=== PATIENT | male | born 1945 | race African-American/Black ===

== ENCOUNTER 2016-12-24 07:32 | Day surgery (SDC) | payer OTHER ==
[2016-12-23 12:34] VITALS: BMI 37.1
[2016-12-24] MEDS ORDERED: LIDOCAINE HCL 1%, 10 MG/ML (20ML VIAL) ONE (09:12)
[2016-12-24] MEDS ORDERED: HEPARIN NA (PORCINE) 5,000 UNITS/ML 1ML VIAL ONE (09:12)
[2016-12-24] MEDS ORDERED: ceFAZolin SODIUM 1 GM VIAL IVPB ONE (09:35)
[2016-12-24] MEDS ORDERED: LIDOCAINE HCL 1%, 10 MG/ML (50 mL VIAL) IJ ONE ×2 (09:43)
[2016-12-24] MEDS ORDERED: POVIDONE-IODINE OINTMENT 10% - 28.4 GM TUBE TP ONE (11:25)
--- NOTE | 2016-12-24 11:32 | OP ---
Operative Note - Note: Operative Date: 12/24/16 Pre-Operative Diagnosis: CRF Operation: Creation of left radial cephalic fistula Post-Operative Diagnosis: Same as Pre-op Surgeon: Romain Gomez Anesthesia: Fractional Estimated Blood Loss (mls): 30 Operative Report Dictated: Yes
--- NOTE | 2016-12-24 11:33 | HP ---
Admitting History and Physical - Admission Chief Complaint: Chronic renal failure History Source: Patient Limitations to Obtaining History: No Limitations - Past Medical History Cardiovascular: Yes: HTN, Hyperlipdemia Pulmonary: Yes: COPD Gastrointestinal: Yes: Hemorrhoids Renal/: Yes: Renal Failure Heme/Onc: Yes: Anemia Endocrine: Yes: Diabetes Mellitus, Other (Hypercalcemia) - Past Surgical History Past Surgical History: Yes: Appendectomy (1962), Bypass (2002), Stent - Smoking History Smoking history: Former smoker Have you smoked in the past 12 months: No Aproximately how many cigarettes per day: 0 - Alcohol/Substance Use Hx Alcohol Use: No (STOPPED MAY 2016) Home Medications - Allergies Allergies/Adverse Reactions: Allergies Allergy/AdvReac Type Severity Reaction Status Date / Time SHERRY Inhibitors Allergy Swelling Verified 05/11/16 23:49 Penicillins Allergy Verified 05/11/16 23:49 - Home Medications Home Medications: Ambulatory Orders Albuterol Sulfate Inhaler - [Ventolin HFA Inhaler -] 2 inh IH Q4H 03/23/13 Allopurinol [Zyloprim -] 100 mg PO DAILY 03/23/13 Insulin Glargine,Hum.rec.anlog [Lantus Solostar PEN -] 10 units SQ HS 03/23/13 Nebivolol HCl [Bystolic] 5 mg PO DAILY 03/23/13 Salmeterol/Fluticasone [Advair 500Mcg/50Mcg -] 1 inh IN BID 03/23/13 Simvastatin [Zocor -] 40 mg PO HS 03/23/13 Aspirin [ASA -] 81 mg PO DAILY #0 07/01/16 Insulin Aspart [Novolog Flexpen] SQ ASDIR 07/01/16 Losartan Potassium 50 mg PO DAILY 07/01/16 Omeprazole [Prilosec] 20 mg PO DAILY 07/01/16 Pregabalin [Lyrica] 100 mg PO BID 07/01/16 Vitamin B Complex 1 cap PO DAILY 07/01/16 Physical Examination Vital Signs: Vital Signs Temperature 97.7 F 12/24/16 08:27 Pulse Rate 74 12/24/16 08:27 Respiratory Rate 16 12/24/16 08:27 Blood Pressure 149/69 12/24/16 08:27 O2 Sat by Pulse Oximetry (%) Constitutional: Yes: Well Nourished Eyes: Yes: WNL HENT: Yes: WNL Neck: Yes: WNL Cardiovascular: Yes: WNL Respiratory: Yes: WNL Gastrointestinal: Yes: WNL Extremities: Yes: WNL Neurological: Yes: WNL Assessment/Plan CRF 1. for creation of avf today
[2016-12-24] MEDS ORDERED: oxyCODONE HCL 5 MG TABLET PO PRN (12:00)
[2016-12-24] MEDS ORDERED: ONDANSETRON 4 MG/2 ML VIAL IVPUSH PRN (12:00)
[2016-12-24] MEDS ORDERED: PROMETHAZINE HCL 25 MG/1 ML VIAL IVPUSH PRN (12:00)
[2016-12-24 12:43] VITALS: PULSE 82
[2016-12-24 13:43] VITALS: BP 141/83; TEMP 97.5
--- NOTE | 2016-12-24 16:57 | SURG ---
Surgery Land Surveying Manager Note Land Surveying Manager: Myesha Faulkner PA-C Date of Service: 12/24/16 Diagnosis: CRF Procedure: Creation of left radial cephalic fistula I was present for the entirety of the operative procedure. For further detail, please refer to operative report. Visit type - Case Type Case Type: Scheduled Admission - New patient This patient is new to me today: Yes Date on this admission: 12/24/16
--- NOTE | 2016-12-25 12:40 | OP ---
DATE OF OPERATION: 12/24/2016 PREOPERATIVE DIAGNOSIS: Chronic renal failure. POSTOPERATIVE DIAGNOSIS: Chronic renal failure. PROCEDURE: Creation of left radial artery to cephalic vein fistula. SURGEON: Romain Mukherjee MD ANESTHESIA: Fractional. BLOOD LOSS: 30 mL. INDICATIONS FOR PROCEDURE: The patient is a 71-year-old male who has chronic renal failure who needs eminent dialysis in about 6-8 months. It was decided that he would need an AV fistula created so that dialysis can be initiated. He had preoperative vein mapping performed showing that he has a good cephalic vein in the forearm and came in through ambulatory surgery. The patient was consented for the procedure understanding all risks, benefits, and alternatives and then taken in the operating room. DESCRIPTION OF PROCEDURE: Once in the operating room, he was laid on the operating table in supine manner, and the radial artery and the cephalic vein were marked on the skin using a skin marker under ultrasound guidance. We then went ahead and injected 10 mL of lidocaine 1% over the cephalic vein above the wrist. Bovie electrocautery was used to control hemostasis. We got down to the subcutaneous tissue and dissected out our cephalic vein anteriorly and posteriorly. All branches were ligated using 4-0 silk. We then went medially and injected 10 mL lidocaine 1% over the radial artery. We then made a 5-cm incision using a 15 blade. We then went ahead and dissected out. We then got down through the subcutaneous tissue and the sheath and the fascia. Once we got to the radial sheath, the radial artery was dissected anteriorly and posteriorly, and Vessel Loops were placed around it. Then 5000 units of IV heparin were then admitted to the patient. We then went ahead and used 2-0 silk and ligated the cephalic vein distally at the wrist. We then went ahead and placed a 5-Kazakh feeding tube in the vein and dilated the vein appropriately. We then went ahead and used Stanford scissors and made a 7-mm venotomy. We then went ahead and transposed the vein over to the artery. After 3 minutes of IV heparin, we got distal and proximal on the artery. Using a 15 blade, we made an arteriotomy and extended to 7 mm using Stanford scissors. Then 6-0 Prolene stay sutures were placed on the artery. We then used 6-0 Prolene double arm and went outside on the vein and inside on the artery and ran the suture around forming an anastomosis between the artery and the vein. We then opened the distal artery first then the proximal artery. The vein dilated up appropriately. There was a good thrill in the vein. There was no bleeding. Both wounds were well irrigated. Then 3-0 Vicryl was used, and the subcutaneous tissue was approximated in interrupted manner for both incisions, and the skin was closed with 4-0 Biosyn in subcuticular running fashion. The area was wet and dried. Then 4 x 4 Tegaderms were placed. The patient tolerated the procedure well with no complication. The patient was transferred back in stable condition. Total blood loss 30 mL. ROMAIN MUKHERJEE DO NP/[id number]
== END 2016-12-24 13:20 | disposition home or self-care (01) ==
LOC: JASU-SURG 07:32
PROVIDERS: ATTEND Surgery Vascular Surgery
PROC: 031C0ZF Bypass Left Radial Artery to Lower Arm Vein, Open Approach (ICD-10-PCS; principal; 2016-12-24 09:00)
DX: I12.0 Hypertensive chronic kidney disease with stage 5 chronic kidney disease or end stage renal disease (principal); E11.22 Type 2 diabetes mellitus with diabetic chronic kidney disease; N18.6 End stage renal disease; D64.9 Anemia, unspecified; Z87.891 Personal history of nicotine dependence; K64.8 Other hemorrhoids
CPT/HCPCS: 94760; J1644

== ENCOUNTER 2017-04-20 07:35 | Day surgery (SDC) | payer OTHER ==
[2017-04-19 12:18] VITALS: BMI 37.1
[2017-04-20] MEDS ORDERED: LIDOCAINE HCL/PF 2% SDV 5ML VIAL ONE (09:08)
[2017-04-20 09:56] VITALS: PULSE 82; TEMP 97.6
[2017-04-20 13:16] VITALS: BP 110/50
--- NOTE | 2017-04-21 13:30 | PATH ---
Surgical Pathology Report Patient Name: SALLY CONNOR [facility]. Rec. #: [id number] /Age/Gender: 1945 (Age: 71) / M Account: [id number] Location: [facility]-ENDOSCOPY Taken: 04/20/2017 Received: 04/20/2017 Reported: 04/21/2017 Physicians: Alex Flores M.D. 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 DUODENUM, ATROPHIC, BIOPSY: DUODENAL MUCOSA WITH ACTIVE AND CHRONIC INFLAMMATION WITH FOCAL VILLOUS BLUNTING; NO INCREASE IN INTRAEPITHELIAL LYMPHOCYTES (SEE COMMENT). Comment: The finding is nonspecific and may be seen in gluten sensitive enteropathy (celiac disease) or active/chronic duodenitis. In the presence of significant inflammation the finding is likely related to duodenitis. Serological correlations are suggested if clinically indicated. B. 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 IMMUNOSTAIN FOR H. PYLORI IS NEGATIVE FOR ORGANISMS. Electronically Signed Jet Simpson M.D. Gross Description A. Received in formalin, labeled "biopsy atrophic duodenum" is a powers, irregular portion of soft tissue measuring 0.4 cm in greatest dimension. The specimen is submitted in toto in one cassette. B. Received in formalin, labeled "biopsy nodular body" are 2 powers, irregular portions of soft tissue measuring 0.1 and 0.5 cm in greatest dimension. The specimens are submitted in toto in one cassette. 04/20/2017 [facility]04/20/2017
== END 2017-04-20 11:00 | disposition home or self-care (01) ==
LOC: JASU-ENDO 07:35
PROVIDERS: ATTEND Internal Medicine Gastroenterology
PROC: 0DB68ZX Excision of Stomach, Via Natural or Artificial Opening Endoscopic, Diagnostic (ICD-10-PCS; principal; 2017-04-20 08:30)
DX: D64.9 Anemia, unspecified (principal); K29.80 Duodenitis without bleeding; K29.70 Gastritis, unspecified, without bleeding
CPT/HCPCS: 88305-TC; 88342-TC

== ENCOUNTER 2017-07-23 07:28 | Day surgery (SDC) | payer OTHER ==
[2017-07-22 12:39] VITALS: BMI 37.1
[2017-07-23] MEDS ORDERED: LIDOCAINE HCL 1%, 10 MG/ML (20ML VIAL) ONE (08:36)
[2017-07-23] MEDS ORDERED: HEPARIN NA (PORCINE) 5,000 UNITS/ML 1ML VIAL ONE (08:36)
[2017-07-23] MEDS ORDERED: CLINDAMYCIN PHOSPHATE 600 MG/4 ML VIAL IVPB ONE (09:52)
[2017-07-23] MEDS ORDERED: LIDOCAINE HCL 1%, 10 MG/ML (50 mL VIAL) IJ ONE (09:56)
--- NOTE | 2017-07-23 10:20 | OP ---
Operative Note - Note: Operative Date: 07/23/17 Pre-Operative Diagnosis: immature left avf Operation: venoplasty left avf Post-Operative Diagnosis: Same as Pre-op Surgeon: Romain Gomez Anesthesia: Fractional Estimated Blood Loss (mls): 5 Operative Report Dictated: Yes
--- NOTE | 2017-07-23 10:22 | HP ---
Admitting History and Physical - Admission Chief Complaint: immature left avf - Past Medical History Cardiovascular: Yes: HTN, Hyperlipdemia Pulmonary: Yes: COPD Gastrointestinal: Yes: Hemorrhoids Renal/: Yes: Renal Failure Heme/Onc: Yes: Anemia Endocrine: Yes: Diabetes Mellitus, Other (Hypercalcemia) - Past Surgical History Past Surgical History: Yes: Appendectomy (1962), Bypass (2002), Stent - Smoking History Smoking history: Former smoker Have you smoked in the past 12 months: No Aproximately how many cigarettes per day: 0 If you are a former smoker, when did you quit?: 1997 - Alcohol/Substance Use Hx Alcohol Use: No (STOPPED MAY 2016) Home Medications - Allergies Allergies/Adverse Reactions: Allergies Allergy/AdvReac Type Severity Reaction Status Date / Time SHERRY Inhibitors Allergy Severe Swelling Verified 07/23/17 08:00 Penicillins Allergy Intermediate Rash Verified 07/23/17 08:00 - Home Medications Home Medications: Ambulatory Orders Albuterol Sulfate Inhaler - [Ventolin HFA Inhaler -] 2 inh IH Q4H 03/23/13 Allopurinol [Zyloprim -] 100 mg PO DAILY 03/23/13 Nebivolol HCl [Bystolic] 5 mg PO DAILY 03/23/13 Salmeterol/Fluticasone [Advair 500Mcg/50Mcg -] 1 inh IN BID 03/23/13 Simvastatin [Zocor -] 40 mg PO HS 03/23/13 Aspirin [ASA -] 81 mg PO DAILY #0 07/01/16 Losartan Potassium 25 mg PO DAILY 07/01/16 Omeprazole [Prilosec] 40 mg PO DAILY 07/01/16 Pregabalin [Lyrica] 100 mg PO BID 07/01/16 Vitamin B Complex 1 cap PO DAILY 07/01/16 Insulin Aspart [Novolog] 4 unit SQ ASDIR 04/19/17 Brimonidine Tartrate [Alphagan P 0.1% -] 1 drop .ROUTE BID 04/20/17 Dutasteride [Avodart] 0.5 mg PO DAILY 04/20/17 Lactulose [Cephulac -] 10 gm PO DAILY 04/20/17 Tamsulosin HCl [Flomax -] 0.4 mg PO DAILY 04/20/17 Torsemide [Demadex -] 100 mg PO DAILY 04/20/17 Insulin Glargine,Hum.rec.anlog [Lantus Solostar PEN -] 6 units SQ HS 07/22/17 Brimonidine Tartrate [Alphagan P 0.1% -] 1 drop OU TID 07/23/17 Tramadol HCl 50 mg PO PRN PRN 07/23/17 Physical Examination Vital Signs: Vital Signs Temperature 98.0 F 07/23/17 08:19 Pulse Rate 80 07/23/17 08:19 Respiratory Rate 18 07/23/17 08:19 Blood Pressure 125/58 07/23/17 08:19 O2 Sat by Pulse Oximetry (%) 100 07/23/17 08:19 Constitutional: Yes: Well Nourished Eyes: Yes: WNL HENT: Yes: WNL Neck: Yes: WNL Cardiovascular: Yes: WNL Respiratory: Yes: WNL Gastrointestinal: Yes: WNL Musculoskeletal: Yes: WNL Extremities: Yes: WNL Edema: No Peripheral Pulses WNL: Yes Integumentary: Yes: WNL Neurological: Yes: WNL Assessment/Plan Immature left avf 1. for venoplasty of left avf
[2017-07-23] MEDS ORDERED: oxyCODONE HCL 5 MG TABLET PO PRN (10:31)
[2017-07-23] MEDS ORDERED: ONDANSETRON 4 MG/2 ML VIAL IVPUSH PRN (10:31)
[2017-07-23] MEDS ORDERED: PROMETHAZINE HCL 25 MG/1 ML VIAL IVPUSH PRN (10:31)
--- NOTE | 2017-07-23 11:11 | OP ---
DATE OF OPERATION: 07/23/2017 PREOPERATIVE DIAGNOSIS: Immature left arteriovenous fistula. POSTOPERATIVE DIAGNOSIS: Immature left arteriovenous fistula. PROCEDURE: Venoplasty of left arteriovenous fistula. SURGEON: Romain Mukherjee DO ANESTHESIA: Fractional. BLOOD LOSS: 5 mL INDICATION FOR PROCEDURE: The patient is a 72-year-old male who has a radiocephalic AV fistula. He is not on dialysis yet, and he needs venoplasty. The vein is only 3 mm, and it is not mature as of yet. Patient came into Ambulatory Surgery. Patient was consented for the procedure, understanding all risks, benefits, and alternatives, then taken to the operating room. DESCRIPTION OF PROCEDURE: Once in the operating room, he was laid on the operating table in supine manner. The area of the left arm was prepped and draped in a sterile surgical manner. We then under ultrasound guidance visualized the cephalic vein at the antecubital fossa, and 2 mL % was injected over the vein. We then took our micropuncture needle and punctured the vein. Micropuncture wire was inserted, and a traditional short 5-[place] sheath was inserted. Next, 3000 units of IV heparin were administered to the patient. We then placed a 0.035 guidewire and crossed the anastomosis. We then went ahead and used a 5 x 8 balloon and performed venoplasty of the entire fistula. We then used a 6 x 6 drug-coated Lutonix balloon and performed a venoplasty of the entire AV fistula. Fistula now had a good thrill. At this point, we used a 4-0 Biosyn stitch, and a figure-of-8 stitch was placed around our sheath and the sheath was pulled. The area was wet and dried, and Dermabond was placed. The patient tolerated the procedure with no complication. Patient transferred to PACU in stable condition. ROMAIN UMKHERJEE DO VIRTUAL ASSISTANT FOR ADVERTISERS/[id number]
[2017-07-23 11:32] VITALS: TEMP 97.5
[2017-07-23 13:32] VITALS: BP 131/65; PULSE 74
== END 2017-07-23 13:00 | disposition home or self-care (01) ==
LOC: JASU-SURG 07:28
PROVIDERS: ATTEND Surgery Vascular Surgery
PROC: 057F3ZZ Dilation of Left Cephalic Vein, Percutaneous Approach (ICD-10-PCS; principal; 2017-07-23 09:00)
DX: T82.898A Other specified complication of vascular prosthetic devices, implants and grafts, initial encounter (principal); I12.0 Hypertensive chronic kidney disease with stage 5 chronic kidney disease or end stage renal disease; E11.22 Type 2 diabetes mellitus with diabetic chronic kidney disease; N18.6 End stage renal disease
CPT/HCPCS: 76000-TC; 94760; J1644

== ENCOUNTER 2018-11-17 08:49 | Day surgery (SDC) | payer OTHER ==
[2018-11-16 15:20] VITALS: BMI 33.9
[2018-11-17] MEDS ORDERED: MIDAZOLAM HCL 2 MG/2 ML SINGLE DOSE VIAL ONE ×2 (10:42→10:46)
[2018-11-17] MEDS ORDERED: LIDOCAINE HCL 1%, 10 MG/ML (20ML VIAL) NR ONE (11:00)
[2018-11-17] MEDS ORDERED: PROPOFOL 20 ML ONE (11:05)
[2018-11-17] MEDS ORDERED: IOHEXOL 300 MG/ML INFUS..BTL IV ONE (11:08)
[2018-11-17] MEDS ORDERED: HEPARIN NA (PORCINE) 5,000 UNITS/ML 1ML VIAL IV ONE (11:08)
[2018-11-17] MEDS ORDERED: ONDANSETRON 4 MG/2 ML VIAL IVPUSH PRN (11:30)
--- NOTE | 2018-11-17 11:37 | HP ---
Admitting History and Physical - Admission Chief Complaint: Stenosis left avf Limitations to Obtaining History: No Limitations - Past Medical History Cardiovascular: Yes: HTN, Hyperlipdemia Pulmonary: Yes: COPD Gastrointestinal: Yes: Hemorrhoids Renal/: Yes: Renal Failure Heme/Onc: Yes: Anemia Endocrine: Yes: Diabetes Mellitus, Other (Hypercalcemia) - Past Surgical History Past Surgical History: Yes: Appendectomy (1962), Bypass (2002), Stent - Smoking History Smoking history: Former smoker Have you smoked in the past 12 months: No Aproximately how many cigarettes per day: 0 If you are a former smoker, when did you quit?: 1997 - Alcohol/Substance Use Hx Alcohol Use: No (STOPPED MAY 2016) Home Medications - Allergies Allergies/Adverse Reactions: Allergies Allergy/AdvReac Type Severity Reaction Status Date / Time SHERRY Inhibitors Allergy Severe Swelling Verified 11/17/18 10:05 Penicillins Allergy Intermediate Rash Verified 11/17/18 10:05 - Home Medications Home Medications: Ambulatory Orders Albuterol Sulfate Inhaler - [Ventolin HFA Inhaler -] 2 inh IH Q4H 03/23/13 Allopurinol [Zyloprim -] 100 mg PO DAILY 03/23/13 Nebivolol HCl [Bystolic] 5 mg PO DAILY 03/23/13 Salmeterol/Fluticasone [Advair 500Mcg/50Mcg -] 1 inh IN BID 03/23/13 Simvastatin [Zocor -] 40 mg PO HS 03/23/13 Omeprazole [Prilosec] 40 mg PO DAILY 07/01/16 Pregabalin [Lyrica] 100 mg PO BID 07/01/16 Insulin Aspart [Novolog] 4 unit SQ ASDIR 04/19/17 Dutasteride [Avodart] 0.5 mg PO DAILY 04/20/17 Lactulose [Cephulac -] 10 gm PO PRN 04/20/17 Tamsulosin HCl [Flomax -] 0.4 mg PO DAILY 04/20/17 Torsemide [Demadex -] 100 mg PO DAILY 04/20/17 Insulin Glargine,Hum.rec.anlog [Lantus Solostar PEN -] 6 units SQ HS 07/22/17 Brimonidine Tartrate [Alphagan P 0.1% -] 1 drop OU TID 07/23/17 Aspirin [ASA -] 81 mg PO ASDIR 11/16/18 Review of Systems - Review of Systems Constitutional: reports: No Symptoms Eyes: reports: No Symptoms HENT: reports: No Symptoms Neck: reports: No Symptoms Cardiovascular: reports: No Symptoms Respiratory: reports: No Symptoms Gastrointestinal: reports: No Symptoms Genitourinary: reports: No Symptoms Breasts: reports: No Symptoms Reported Musculoskeletal: reports: No Symptoms Integumentary: reports: No Symptoms Neurological: reports: No Symptoms Physical Examination Vital Signs: Vital Signs Temperature 97.8 F 11/17/18 10:05 Pulse Rate 76 11/17/18 10:05 Respiratory Rate 20 11/17/18 10:05 Blood Pressure 139/63 11/17/18 10:05 O2 Sat by Pulse Oximetry (%) 100 11/17/18 09:58 Constitutional: Yes: Well Nourished, No Distress, Calm Eyes: Yes: WNL, Conjunctiva Clear, EOM Intact HENT: Yes: WNL, Atraumatic, Normocephalic Neck: Yes: WNL, Supple, Trachea Midline Cardiovascular: Yes: WNL, Regular Rate and Rhythm Respiratory: Yes: WNL, Regular, CTA Bilaterally Gastrointestinal: Yes: WNL, Normal Bowel Sounds Musculoskeletal: Yes: WNL Extremities: Yes: WNL Edema: No Integumentary: Yes: WNL Neurological: Yes: WNL, Alert, Oriented ...Motor Strength: WNL Psychiatric: Yes: WNL Labs: CBC, BMP 11/17/18 09:12 Problem List - Problems (1) AV fistula stenosis Assessment/Plan: For venogram, venoplasty today Code(s): T82.858A - STENOSIS OF OTHER VASCULAR PROSTH DEV/GRFT, INIT
--- NOTE | 2018-11-17 11:40 | OP ---
Operative Note - Note: Operative Date: 11/17/18 Pre-Operative Diagnosis: stenosis left avf Operation: venogram, venoplasty left avf Post-Operative Diagnosis: Same as Pre-op Surgeon: Romain Gomez Anesthesia: Fractional Estimated Blood Loss (mls): 20 Operative Report Dictated: Yes
[2018-11-17 15:14] VITALS: BP 127/51; PULSE 72; TEMP 98
--- NOTE | 2018-11-19 12:19 | OP ---
DATE OF OPERATION: 11/17/2018 PREOPERATIVE DIAGNOSIS: Stenosis left arteriovenous fistula. POSTOPERATIVE DIAGNOSIS: Stenosis left arteriovenous fistula. PROCEDURE PERFORMED: Venogram, venoplasty of left arteriovenous fistula. SURGEON: Romain Mukherjee DO ANESTHESIA: Fractional. BLOOD LOSS: 10 mL. INDICATIONS: The patient is a 73-year-old male who has a left AV fistula. Preoperative ultrasound shows that the body of the fistula is stenotic. The patient is not on dialysis yet, but we are preparing the fistula so that if the patient needs dialysis, the fistula will be ready to go. DESCRIPTION OF PROCEDURE: The patient came in to Ambulatory Surgery. The patient was consented for the procedure, understanding all risks, benefits and alternatives, and then taken to the operating room. Once in the operating room, the patient was laid on the operating table in the supine manner. The area of the left arm was prepped and draped in a sterile surgical manner. Under ultrasound guidance, we were able to visualize the cephalic vein right below the elbow. We were then able to inject 5 mL of lidocaine 1% there. We then went ahead and used our Micropuncture needle and punctured the cephalic vein. Under ultrasound guidance, Micropuncture wire was inserted. Micropuncture sheath was inserted and a short 6-Lithuanian sheath was inserted. IV heparin, 5000 units, was administered to the patient. We placed a 0.035 floppy guidewire down to the anastomosis of the radiocephalic fistula, and we were able to get the wire across the anastomosis. We then went ahead and used a 5 x 8 Durata and performed venoplasty of the entire fistula, including the body. We then went ahead and used a 7 x 8 balloon and performed venoplasty of the entire fistula. Completion venogram now showed that the fistula was patent. The body of the fistula was no longer stenotic. There was no recoil. This will allow the fistula to mature and be ready when the patient needs it. At this point we used a 4-0 Biosyn stitch and a [id number]-qf-oeydz stitch was placed around our sheath and the sheath was pulled. The area was wet and dried, and Dermabond was placed. The patient tolerated the procedure with no complication. The patient was transferred to the PACU in stable condition. ROMAIN MUKHERJEE DO DYE HOUSE WHEEL OPERATOR/[id number]
== END 2018-11-17 13:15 | disposition home or self-care (01) ==
LOC: JASU-SURG 08:49
PROVIDERS: ATTEND Surgery Vascular Surgery
PROC: 05773ZZ Dilation of Right Axillary Vein, Percutaneous Approach (ICD-10-PCS; principal; 2018-11-17 10:30)
DX: T82.858A Stenosis of other vascular prosthetic devices, implants and grafts, initial encounter (principal); I12.9 Hypertensive chronic kidney disease with stage 1 through stage 4 chronic kidney disease, or unspecified chronic kidney disease; N18.9 Chronic kidney disease, unspecified
CPT/HCPCS: 36415; 76000-TC-FY; 82962; 84132; 94760; J1644

== ENCOUNTER 2019-01-19 06:43 | Day surgery (SDC) | payer OTHER ==
[2019-01-18 07:46] VITALS: BMI 33.9
[2019-01-19] MEDS ORDERED: HEPARIN NA (PORCINE) 5,000 UNITS/ML 1ML VIAL ONE ×2 (08:40→10:57)
[2019-01-19] MEDS ORDERED: LIDOCAINE HCL 1%, 10 MG/ML (20ML VIAL) ONE (08:40)
[2019-01-19] MEDS ORDERED: MIDAZOLAM HCL 2 MG/2 ML SINGLE DOSE VIAL ONE (09:15)
[2019-01-19] MEDS ORDERED: PROPOFOL 20 ML ONE ×2 (09:15→11:49)
[2019-01-19] MEDS ORDERED: LIDOCAINE HCL/PF 2% SDV 5ML VIAL ONE (09:15)
[2019-01-19] MEDS ORDERED: CLINDAMYCIN PHOSPHATE 900 MG/6 ML VIAL IVPB ONE (09:23)
[2019-01-19] MEDS ORDERED: CLINDAMYCIN PHOSPHATE 600 MG/4 ML VIAL ONE (09:24)
[2019-01-19] MEDS ORDERED: LIDOCAINE HCL 1%, 10 MG/ML (50 mL VIAL) IJ ONE ×2 (09:25)
--- NOTE | 2019-01-19 09:55 | HP ---
Admitting History and Physical - Admission Chief Complaint: immature left avf. here for balloon maturation Limitations to Obtaining History: No Limitations - Past Medical History Cardiovascular: Yes: HTN, Hyperlipdemia Pulmonary: Yes: COPD Gastrointestinal: Yes: Hemorrhoids Renal/: Yes: Renal Failure Heme/Onc: Yes: Anemia Endocrine: Yes: Diabetes Mellitus, Other (Hypercalcemia) - Past Surgical History Past Surgical History: Yes: Appendectomy (1962), Bypass (2002), Stent - Smoking History Smoking history: Former smoker Have you smoked in the past 12 months: No Aproximately how many cigarettes per day: 0 If you are a former smoker, when did you quit?: 1997 - Alcohol/Substance Use Hx Alcohol Use: Yes (STOPPED MAY 2016) Home Medications - Allergies Allergies/Adverse Reactions: Allergies Allergy/AdvReac Type Severity Reaction Status Date / Time SHERRY Inhibitors Allergy Severe Swelling Verified 01/19/19 07:40 Penicillins Allergy Intermediate Rash Verified 01/19/19 07:40 - Home Medications Home Medications: Ambulatory Orders Albuterol Sulfate Inhaler - [Ventolin HFA Inhaler -] 2 inh IH BID 03/23/13 Allopurinol [Zyloprim -] 100 mg PO DAILY 03/23/13 Nebivolol HCl [Bystolic] 5 mg PO DAILY 03/23/13 Salmeterol/Fluticasone [Advair 500Mcg/50Mcg -] 1 inh IN BID 03/23/13 Simvastatin [Zocor -] 40 mg PO HS 03/23/13 Omeprazole [Prilosec] 40 mg PO DAILY 07/01/16 Pregabalin [Lyrica] 100 mg PO BID 07/01/16 Insulin Aspart [Novolog] 4 unit SQ ASDIR 04/19/17 Dutasteride [Avodart] 0.5 mg PO DAILY 04/20/17 Lactulose [Cephulac -] 10 gm PO PRN 04/20/17 Tamsulosin HCl [Flomax -] 0.4 mg PO DAILY 04/20/17 Torsemide [Demadex -] 100 mg PO DAILY 04/20/17 Brimonidine Tartrate [Alphagan P 0.1% -] 1 drop OU TID 07/23/17 Aspirin [ASA -] 81 mg PO ASDIR 11/16/18 Insulin Detemir [Levemir Flextouch] 6 unit SQ HS 01/18/19 Review of Systems - Review of Systems Constitutional: reports: No Symptoms Eyes: reports: No Symptoms HENT: reports: No Symptoms Neck: reports: No Symptoms Cardiovascular: reports: No Symptoms Respiratory: reports: No Symptoms Gastrointestinal: reports: No Symptoms Genitourinary: reports: No Symptoms Breasts: reports: No Symptoms Reported Musculoskeletal: reports: No Symptoms Integumentary: reports: No Symptoms Neurological: reports: No Symptoms Physical Examination Vital Signs: Vital Signs Temperature 97.8 F 01/19/19 07:16 Pulse Rate 82 01/19/19 07:16 Respiratory Rate 16 01/19/19 07:16 Blood Pressure 134/67 01/19/19 07:16 O2 Sat by Pulse Oximetry (%) 97 01/19/19 07:16 Constitutional: Yes: Well Nourished, No Distress, Calm Eyes: Yes: WNL, Conjunctiva Clear, EOM Intact HENT: Yes: WNL, Atraumatic, Normocephalic Neck: Yes: WNL, Supple, Trachea Midline Cardiovascular: Yes: WNL, Regular Rate and Rhythm Respiratory: Yes: WNL, Regular, CTA Bilaterally Gastrointestinal: Yes: WNL, Normal Bowel Sounds Musculoskeletal: Yes: WNL Extremities: Yes: WNL Edema: No Peripheral Pulses WNL: Yes Integumentary: Yes: WNL Neurological: Yes: WNL, Alert, Oriented ...Motor Strength: WNL Psychiatric: Yes: WNL Problem List - Problems (1) AV fistula stenosis Assessment/Plan: AVF immature with stenosis. For venoplasty today Code(s): T82.858A - STENOSIS OF OTHER VASCULAR PROSTH DEV/GRFT, INIT Qualifiers:
--- NOTE | 2019-01-19 09:56 | OP ---
Operative Note - Note: Operative Date: 01/19/19 Pre-Operative Diagnosis: stenosis left avf Operation: venogram,venoplasty left avf Post-Operative Diagnosis: Same as Pre-op Surgeon: Romain Gomez Anesthesia: Fractional Estimated Blood Loss (mls): 10 Operative Report Dictated: Yes
[2019-01-19] MEDS ORDERED: ceFAZolin SODIUM 1 GM VIAL ONE (10:38)
[2019-01-19] MEDS ORDERED: ONDANSETRON 4 MG/2 ML VIAL IVPUSH PRN (10:42)
[2019-01-19] MEDS ORDERED: oxyCODONE HCL 5 MG TABLET PO PRN ×2 (10:42)
[2019-01-19] MEDS ORDERED: LACTATED RINGERS SOLUTION 1,000 ML IV SCH (10:45)
--- NOTE | 2019-01-19 10:47 | OP ---
DATE OF OPERATION: 01/19/2019 PREOPERATIVE DIAGNOSIS: Stenosis, left arteriovenous fistula. POSTOPERATIVE DIAGNOSIS: Stenosis, left arteriovenous fistula. PROCEDURE: Venogram, venoplasty of left arteriovenous fistula. SURGEON: Romain Mukherjee DO ANESTHESIA: Fractional. BLOOD LOSS: 10 mL. The patient is a 73-year-old male who has a left AV fistula that is not mature enough for use yet. Patient is not on dialysis yet. Patient had a preoperative ultrasound showing that there was a stenosis in the distal AV fistula above the anastomosis, and the fistula size is not up to par. Patient came in through Ambulatory Surgery. Patient was consented for the procedure, understanding all risks, benefits, and alternatives. Patient was then taken to the operating room, laid on the operating table in supine manner, and the area of the left arm was prepped and draped in a sterile surgical manner. Under ultrasound guidance, we were able to visualize the proximal cephalic vein below the antecubital fossa. We injected 10 mL of lidocaine 1% there. We then took our micropuncture needle, punctured the fistula. Micropuncture wire was inserted. Micropuncture sheath was inserted, and a short 6-Kyrgyz sheath was inserted. We then placed our 0.035 floppy guidewire under fluoroscopy all the way down to the anastomosis and across it. We then used a 9 x 6 Cecil balloon. Prior to putting the balloon in, we gave the patient 3000 units of IV heparin. After 3 minutes, we went ahead and performed venoplasty of the entire fistula using a 9 x 6 Cecil balloon. Completion venogram showed that the vein was now more dilated and there was a stronger thrill in the AV fistula. At this point, no more intervention was needed. The fistula was dilated. Venogram showed that the vein was dilated. We went ahead and used a 4-0 Biosyn and a [id number] stitch was placed around the sheath and the sheath was pulled. The area was wet and dried, and Dermabond was placed. The patient tolerated the procedure with no complications. Patient was transferred to PACU in stable condition. ROMAIN MUKHERJEE DO BRONZE CHASER/[id number]
[2019-01-19 11:24] VITALS: TEMP 97.2
[2019-01-19 11:57] VITALS: BP 122/50; PULSE 75
== END 2019-01-19 11:58 | disposition home or self-care (01) ==
LOC: JASU-SURG 06:43
PROVIDERS: ATTEND Surgery Vascular Surgery
PROC: 057F3ZZ Dilation of Left Cephalic Vein, Percutaneous Approach (ICD-10-PCS; principal; 2019-01-19 09:00)
DX: T82.898D Other specified complication of vascular prosthetic devices, implants and grafts, subsequent encounter (principal); I12.0 Hypertensive chronic kidney disease with stage 5 chronic kidney disease or end stage renal disease; E11.22 Type 2 diabetes mellitus with diabetic chronic kidney disease; N18.6 End stage renal disease; Z79.4 Long term (current) use of insulin
CPT/HCPCS: 76000-TC-FY; 82962; 94760; J1644

== ENCOUNTER 2019-10-16 12:07 | Day surgery (SDC) | payer OTHER ==
[2019-10-16 12:59] VITALS: BMI 37.1
[2019-10-16 14:15] VITALS: TEMP 97.9
[2019-10-16 15:32] VITALS: BP 120/46; PULSE 74
--- NOTE | 2019-10-18 11:31 | PATH ---
Surgical Pathology Report Patient Name: SALLY CONNOR [facility]. Rec. #: [id number] /Age/Gender: 1945 (Age: 74) / M Account: [id number] Location: U-ENDOSCOPY Taken: 10/16/2019 Received: 10/17/2019 Reported: 10/18/2019 Physicians: Alex Flores M.D. Specimen(s) Received DISTAL DESCENDING POLYP Clinical History Elevated CEA level Postoperative diagnosis: Diverticulosis, colon polyp Final Diagnosis DISTAL DESCENDING COLON, POLYP, BIOPSY: TUBULOVILLOUS ADENOMA. Electronically Signed Sue Alvarez M.D. Gross Description Received in formalin, labeled "polyp distal descending" are 2 powers, irregular portions of soft tissue measuring 0.2 and 0.3 cm. in greatest dimension. The specimens are submitted in toto in one cassette. /10/17/201910/17/2019
== END 2019-10-16 15:10 | disposition home or self-care (01) ==
LOC: JASU-ENDO 12:07
PROVIDERS: ATTEND Internal Medicine Gastroenterology
PROC: 0DBM8ZX Excision of Descending Colon, Via Natural or Artificial Opening Endoscopic, Diagnostic (ICD-10-PCS; principal; 2019-10-16 13:00)
DX: D12.4 Benign neoplasm of descending colon (principal); K57.30 Diverticulosis of large intestine without perforation or abscess without bleeding
CPT/HCPCS: 88305-TC

== ENCOUNTER 2019-11-01 16:13 | Inpatient (IN) | payer OTHER ==
--- NOTE | 2019-11-01 16:30 | PDOC ---
History of Present Illness - General Chief Complaint: Weakness Stated Complaint: WEAKNESS/FOUND ON FLOOR Time Seen by Provider: 11/01/19 16:25 - History of Present Illness Initial Comments: The pt is a 74M w/ a history of CKD, DM, s/p RUE fistula placement (but reportedly no iHD) who presents s/p unable to get himself off the floor after lowering himself to clean said floor last night at 0200. The pt was on the floor for approximately 15 hours before he was able to get himself to a phone and call for help. He denies falls, recent fevers/chills, chest pain, trouble breathing, abdominal pain, N/V/C/D, dysuria, or changes in sensation 11/01/19 18:15 Past History - Past Medical History Allergies/Adverse Reactions: Allergies Allergy/AdvReac Type Severity Reaction Status Date / Time SHERRY Inhibitors Allergy Severe Swelling Verified 11/01/19 16:21 Penicillins Allergy Intermediate Rash Verified 11/01/19 16:21 Home Medications: Ambulatory Orders Albuterol Sulfate Inhaler - [Ventolin HFA Inhaler -] 2 inh IH BID 03/23/13 Allopurinol [Zyloprim -] 100 mg PO DAILY 03/23/13 Nebivolol HCl [Bystolic] 5 mg PO DAILY 03/23/13 Salmeterol/Fluticasone [Advair 500Mcg/50Mcg -] 1 inh IN BID 03/23/13 Simvastatin [Zocor -] 40 mg PO HS 03/23/13 Omeprazole [Prilosec] 40 mg PO DAILY 07/01/16 Pregabalin [Lyrica] 100 mg PO BID 07/01/16 Insulin Aspart [Novolog] 4 unit SQ ASDIR 04/19/17 Dutasteride [Avodart] 0.5 mg PO DAILY 04/20/17 Lactulose [Cephulac -] 10 gm PO PRN 04/20/17 Tamsulosin HCl [Flomax -] 0.4 mg PO DAILY 04/20/17 Torsemide [Demadex -] 100 mg PO DAILY 04/20/17 Brimonidine Tartrate [Alphagan P 0.1% -] 1 drop OU TID 07/23/17 Aspirin [ASA -] 81 mg PO ASDIR 11/16/18 Insulin Detemir [Levemir Flextouch] 6 unit SQ HS 01/18/19 Anemia: (IN THE PAST) Asthma: Yes Cancer: No Cardiac Disorders: Yes (CAD) CVA: No COPD: Yes CHF: No Dementia: No Diabetes: Yes (INSULIN DEPENDENT) GI Disorders: Yes (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) Disorders: Yes HTN: Yes (PORTAL HTN) Hypercholesterolemia: Yes Liver Disease: Yes (CHRONIC) Seizures: No Thyroid Disease: No - Surgical History Abdominal Surgery: Yes (HERNIA REPAIR- DENIES HAVING) Appendectomy: No Cardiac Surgery: Yes (TRIPLE BYPASS 2003) Cholecystectomy: No Lung Surgery: No Neurologic Surgery: No Orthopedic Surgery: Yes (LEFT HAND FINGER SURGERY;RIGHT WRIST SX) - Immunization History Immunization Up to Date: Yes - Psycho Social/Smoking Cessation Hx Smoking Status: Yes Smoking History: Never smoked Have you smoked in the past 12 months: No Number of Cigarettes Smoked Daily: 0 If you are a former smoker, when did you quit?: 1997 Hx Alcohol Use: No Drug/Substance Use Hx: No Substance Use Type: None Hx Substance Use Treatment: Yes (COCAINE 1994) Review of Systems - Review of Systems Able to Perform ROS?: Yes Comments:: GENERAL/CONSTITUTIONAL: No fever or chills. No weakness HEAD, EYES, EARS, NOSE AND THROAT: No change in vision. No change in hearing. No sore throat CARDIOVASCULAR: No chest pain or shortness of breath RESPIRATORY: Denies cough, hemoptysis GASTROINTESTINAL: No nausea, vomiting, diarrhea or constipation GENITOURINARY: No dysuria, frequency MUSCULOSKELETAL: No joint or muscle swelling or pain. No neck or back pain SKIN: No rash NEUROLOGIC: No headache, vertigo, loss of consciousness, or change in strength/ sensation ENDOCRINE: No increased thirst. No abnormal weight change HEMATOLOGIC/LYMPHATIC: +history of anemia ALLERGIC/IMMUNOLOGIC: No hives or skin allergy 11/01/19 16:29 Is the patient limited Zambian proficient: No *Physical Exam - Vital Signs Last Vital Signs Temp Pulse Resp BP Pulse Ox 98.0 F 102 H 18 94/74 98 11/01/19 16:21 11/01/19 16:21 11/01/19 16:21 11/01/19 16:21 11/01/19 16:21 - Physical Exam GENERAL: Awake, alert, and oriented to person/place/time, in no acute distress HEAD: No signs of trauma, normocephalic, atraumatic EYES: PERRLA, EOMI, sclera anicteric, conjunctiva clear ENT: Hearing grossly normal, nares patent, oropharynx clear without exudates. Moist mucosa LUNGS: No distress, speaks in full sentences, clear to auscultation bilaterally HEART: Tachycardic rate and regular rhythm, normal S1 and S2, no murmurs appreciated, peripheral pulses normal and equal bilaterally ABDOMEN: Soft, protuberant, nontender, normoactive bowel sounds. No guarding, no rebound RECTAL: external hemorrhoids, no obvious blood on exam glove, soft stool in vault EXTREMITIES: Normal inspection, Normal range of motion. No cyanosis NEUROLOGICAL: Cranial nerves II through XII grossly intact. Normal speech, no focal sensorimotor deficits SKIN: Warm, Dry 11/01/19 16:29 ED Treatment Course - LABORATORY CBC & Chemistry Diagram: 11/01/19 16:47 11/01/19 16:47 - RADIOLOGY Radiograph Interpretation: THIS IS A PRELIMINARY REPORT FROM [facility] EXAM: CT Head w/o EXAM DATE AND TIME: 2019-11-01 19:38:55 FINDINGS: The cerebral sulci and ventricles are normal in size for the patient' s age. There are no intracranial hemorrhages, extra-axial fluid collections or evidence of an intra-axial mass lesion. There is no clear evidence of chronic ischemic demyelination. Cerebral blackman/white matter differentiation is preserved, without clear evidence of an acute ischemic lesion at this time. Orbital and petrous structures, cerebellopontine angles, and posterior fossa appear unremarkable. The paranasal and mastoid sinuses are clear. IMPRESSION: Normal CT scan of the head. No evidence of acute or chronic ischemic change. No intracranial hemorrhages, extra-axial fluid collections or intra-axial mass lesion. 11/01/19 21:59 Medical Decision Making - Medical Decision Making The pt is a 74M w/ a history of CKD, DM, s/p RUE fistula placement (but reportedly no iHD) who presents s/p being found down for 15 hours. ED Course CK elevated Trop I 0.07 likely demand Pt found to be anemia BUN elevated FOBT positive Consent for transfusion obtained Will transfuse 1u pRBC Lactate 2.3 IVF 11/01/19 21:34 No leukocytosis UA w/o evidence of UTI CT head w/o acute pathology Iron studies ordered per inpatient team 11/01/19 22:00 Plan for admission for GI bleed and symptomatic anemia Pt signed out to [facility] Admitting, admit to Tele 11/01/19 23:17 Discharge - Discharge Information Problems reviewed: Yes Clinical Impression/Diagnosis: Symptomatic anemia GIB (gastrointestinal bleeding) Qualifiers: GI bleed type/associated pathology: unspecified gastrointestinal hemorrhage type Qualified Code(s): K92.2 - Gastrointestinal hemorrhage, unspecified Condition: Fair - Admission Yes - Follow up/Referral - Patient Discharge Instructions - Post Discharge Activity
--- NOTE | 2019-11-01 18:11 | PDOC ---
Attending Attestation - Resident Resident Name: Kip Carolina - ED Attending Attestation I have performed the following: I have examined & evaluated the patient, The case was reviewed & discussed with the resident, I agree w/resident's findings & plan, Exceptions are as noted - HPI HPI: 11/01/19 17:41 74 M with h/o HTN, HLD, DM, COPD, ESRD on HD, presenting to ED after being unable to get off the floor. Pt was in the bathroom and went to the floor to clean himself. Pt denies falling. Denies headstrike/LOC. Pt states that he was unable to get himself up from the floor because his legs were weak. He states that he normally ambulates with a walker. Denies any unilateral weakness. Denies upper extremity weakness. Denies back pain. Denies F/C. Denies CP/SOB. - Physicial Exam PE: 11/01/19 18:11 "GENERAL: Awake, alert, and fully oriented, in no acute distress. HEAD: No signs of trauma EYES: PERRLA, EOMI, sclera anicteric, conjunctiva clear ENT: Auricles normal inspection, hearing grossly normal, nares patent, oropharynx clear without exudates. Moist mucosa NECK: Nontender, no stepoffs, Normal ROM, supple, no lymphadenopathy, JVD, or masses LUNGS: Breath sounds equal, clear to auscultation bilaterally. No wheezes, and no crackles HEART: Regular rate and rhythm, normal S1 and S2, no murmurs, rubs or gallops ABDOMEN: Soft, nontender, normoactive bowel sounds. No guarding, no rebound. No masses EXTREMITIES: Normal range of motion, no edema. No clubbing or cyanosis. No cords, erythema, or tenderness NEUROLOGICAL: Cranial nerves II through XII intact. 5/5 strength and sensation in all extremities, Normal speech, normal gait, normal cerebellar function SKIN: Warm, Dry, normal turgor, no rashes or lesions noted. - Medical Decision Making 11/01/19 18:13 74 M with bilateral leg weakness. No focal neuro deficits on exam. Will evaluate for infectious process. - Labs - CT head
[2019-11-01 19:15] LABS: BASO % 0.4 % (0-2.0); EOS % 0.5 % (0-4.5); HEMATOCRIT 21.4 % (35.4-49); LYMPH % 13.4 % (8-40); MCH 29.2 pg (25.7-33.7); MEAN CELL VOLUME 91.3 fl (80-96); MEAN PLT VOLUME 10.5 fl (7.5-11.1); MONO % 4.8 % (3.8-10.2); NEUT % 80.9 % (42.8-82.8); PLATELET COUNT 103 K/MM3 (134-434); RBC 2.34 M/mm3 (4.00-5.60); RDW 16.5 % (11.9-15.9)
[2019-11-01 19:23] LABS: HEMOGLOBIN 6.9 GM/dL (11.7-16.9)
[2019-11-01 19:57] LABS: BILIRUBIN,TOTAL 0.1 mg/dL (0.2-1); CALCIUM 9.9 mg/dL (8.5-10.1); CREATININE 2.5 mg/dL (0.55-1.3); POTASSIUM 4.7 mmol/L (3.5-5.1); TOT PROT 5.8 g/dl (6.4-8.2)
[2019-11-01 19:59] LABS: BLOOD UREA NITROGEN 138.3 mg/dL (7-18)
[2019-11-01] MEDS ORDERED: SODIUM CHLORIDE 0.9% 500 ML INFUS.BAG IV ONE (21:38)
[2019-11-01 23:04] LABS: EPI CELLS 1.5 /HPF (0-5/HPF); HYALINE CASTS 3 /lpf (0-8); URINE APPEARANCE CLEAR; URINE BACTERIA 5.1 /hpf (NEGATIVE); URINE BILIRUBIN NEGATIVE (NEGATIVE); URINE COLOR YELLOW; URINE GLUCOSE (UA) NEGATIVE (NEGATIVE); URINE KETONE NEGATIVE (NEGATIVE); URINE LEUK ESTERASE TRACE (NEGATIVE); URINE NITRITE NEGATIVE (NEGATIVE); URINE PROTEIN NEGATIVE (NEGATIVE); URINE RBC 1 /hpf (0-4); URINE UROBILINOGEN 0.2 mg/dL (0.2-1.0); URINE WBC 1 /hpf (0-5)
[2019-11-02] MEDS ORDERED: PANTOPRAZOLE SODIUM 40 MG VIAL IVPUSH ONE (00:06)
[2019-11-02] MEDS ORDERED: SODIUM CHLORIDE 1,000 ML IV SCH (00:15)
--- NOTE | 2019-11-02 01:55 | HP ---
<ZackerykatherineMarbin thayer - Last Filed: 11/02/19 02:01> CHIEF COMPLAINT: PCP: HISTORY OF PRESENT ILLNESS: ER course was notable for: (1) (2) (3) Recent Travel: PAST MEDICAL HISTORY: PAST SURGICAL HISTORY: Social History: Smoking: Alcohol: Drugs: Allergies SHERRY Inhibitors Allergy (Severe, Verified 11/01/19 16:21) Swelling angioedema Penicillins Allergy (Intermediate, Verified 11/01/19 16:21) Rash rash HOME MEDICATIONS: Home Medications Medication Instructions Recorded Albuterol Sulfate Inhaler - 2 inh IH BID 03/23/13 [Ventolin HFA Inhaler -] Allopurinol [Zyloprim -] 100 mg PO DAILY 03/23/13 Nebivolol HCl [Bystolic] 5 mg PO DAILY 03/23/13 Salmeterol/Fluticasone [Advair 1 inh IN BID 03/23/13 500Mcg/50Mcg -] Simvastatin [Zocor -] 40 mg PO HS 03/23/13 Omeprazole [Prilosec] 40 mg PO DAILY 07/01/16 Pregabalin [Lyrica] 100 mg PO BID 07/01/16 Insulin Aspart [Novolog] 4 unit SQ ASDIR 04/19/17 Dutasteride [Avodart] 0.5 mg PO DAILY 04/20/17 Lactulose [Cephulac -] 10 gm PO PRN 04/20/17 Tamsulosin HCl [Flomax -] 0.4 mg PO DAILY 04/20/17 Torsemide [Demadex -] 100 mg PO DAILY 04/20/17 Brimonidine Tartrate [Alphagan P 1 drop OU TID 07/23/17 0.1% -] Aspirin [ASA -] 81 mg PO ASDIR 11/16/18 Insulin Detemir [Levemir Flextouch] 6 unit SQ HS 01/18/19 REVIEW OF SYSTEMS CONSTITUTIONAL: Absent: fever, chills, diaphoresis, generalized weakness, malaise, loss of appetite, weight change HEENT: Absent: rhinorrhea, nasal congestion, throat pain, throat swelling, difficulty swallowing, mouth swelling, ear pain, eye pain, visual changes CARDIOVASCULAR: Absent: chest pain, syncope, palpitations, irregular heart rate, lightheadedness , peripheral edema RESPIRATORY: Absent: cough, shortness of breath, dyspnea with exertion, orthopnea, wheezing, stridor, hemoptysis GASTROINTESTINAL: Absent: abdominal pain, abdominal distension, nausea, vomiting, diarrhea, constipation, melena, hematochezia GENITOURINARY: Absent: dysuria, frequency, urgency, hesitancy, hematuria, flank pain, genital pain MUSCULOSKELETAL: Absent: myalgia, arthralgia, joint swelling, back pain, neck pain SKIN: Absent: rash, itching, pallor HEMATOLOGIC/IMMUNOLOGIC: Absent: easy bleeding, easy bruising, lymphadenopathy, frequent infections ENDOCRINE: Absent: unexplained weight gain, unexplained weight loss, heat intolerance, cold intolerance NEUROLOGIC: Absent: headache, focal weakness or paresthesias, dizziness, unsteady gait, seizure, mental status changes, bladder or bowel incontinence PSYCHIATRIC: Absent: anxiety, depression, suicidal or homicidal ideation, hallucinations. PHYSICAL EXAMINATION Vital Signs - 24 hr 11/01/19 11/01/19 11/02/19 16:21 23:41 00:45 Temperature 98.0 F 97.6 F Pulse Rate 102 H 97 H Pulse Rate [ 100 H Radial] Respiratory 18 20 19 Rate Blood Pressure 94/74 139/77 Blood Pressure 104/82 [Right Arm] O2 Sat by Pulse 98 99 100 Oximetry (%) GENERAL: Awake, alert, and fully oriented, in no acute distress. HEAD: Normal with no signs of trauma. EYES: Pupils equal, round and reactive to light, extraocular movements intact, sclera anicteric, conjunctiva clear. No lid lag. EARS, NOSE, THROAT: Ears normal, nares patent, oropharynx clear without exudates. Moist mucous membranes. NECK: Normal range of motion, supple without lymphadenopathy, JVD, or masses. LUNGS: Breath sounds equal, clear to auscultation bilaterally. No wheezes, and no crackles. No accessory muscle use. HEART: Regular rate and rhythm, normal S1 and S2 without murmur, rub or gallop. ABDOMEN: Soft, nontender, not distended, normoactive bowel sounds, no guarding, no rebound, no masses. No hepatomegaly or splenomegaly. MUSCULOSKELETAL: Normal range of motion at all joints. No bony deformities or tenderness. No CVA tenderness. UPPER EXTREMITIES: 2+ pulses, warm, well-perfused. No cyanosis. No clubbing. No peripheral edema. LOWER EXTREMITIES: 2+ pulses, warm, well-perfused. No calf tenderness. No peripheral edema. NEUROLOGICAL: Cranial nerves II-XII intact. Normal speech. Normal gait. PSYCHIATRIC: Cooperative. Good eye contact. Appropriate mood and affect. SKIN: Warm, dry, normal turgor, no rashes or lesions noted, normal capillary refill. Laboratory Results - last 24 hr 11/01/19 11/01/19 11/01/19 16:47 16:47 16:47 WBC 9.0 RBC 2.34 L Hgb 6.9 L* Hct 21.4 L D MCV 91.3 MCH 29.2 MCHC 32.0 RDW 16.5 H Plt Count 103 L MPV 10.5 Absolute Neuts (auto) 7.3 Neutrophils % 80.9 D Lymphocytes % 13.4 D Monocytes % 4.8 Eosinophils % 0.5 D Basophils % 0.4 Nucleated RBC % 0 PTT (Actin FS) Sodium 146 H Potassium 4.7 Chloride 112 H Carbon Dioxide 26 Anion Gap 7 L BUN 138.3 H* Creatinine 2.5 H Est GFR (CKD-EPI)AfAm 28.26 Est GFR (CKD-EPI)NonAf 24.38 Random Glucose 173 H Lactic Acid Calcium 9.9 Iron 79 Ferritin 29.4 Total Bilirubin 0.1 L AST 32 ALT 23 Alkaline Phosphatase 61 Creatine Kinase 1024 H Creatine Kinase Index 0.5 CK-MB (CK-2) 5.3 H Troponin I 0.07 H Total Protein 5.8 L Albumin 3.0 L Urine Color Urine Appearance Urine pH Ur Specific [place] Urine Protein Urine Glucose (UA) Urine Ketones Urine Blood Urine Nitrite Urine Bilirubin Urine Urobilinogen Ur Leukocyte Esterase Urine WBC (Auto) Urine RBC (Auto) Urine Casts (Auto) U Epithel Cells (Auto) Urine Bacteria (Auto) Stool Occult Blood Blood Type Antibody Screen Antibody Identification Antigen Identification Crossmatch 11/01/19 11/01/19 11/01/19 16:47 20:25 20:25 WBC RBC Hgb Hct MCV MCH MCHC RDW Plt Count MPV Absolute Neuts (auto) Neutrophils % Lymphocytes % Monocytes % Eosinophils % Basophils % Nucleated RBC % PTT (Actin FS) 28.0 Sodium Potassium Chloride Carbon Dioxide Anion Gap BUN Creatinine Est GFR (CKD-EPI)AfAm Est GFR (CKD-EPI)NonAf Random Glucose Lactic Acid 2.3 H* Calcium Iron Ferritin Total Bilirubin AST ALT Alkaline Phosphatase Creatine Kinase Creatine Kinase Index CK-MB (CK-2) Troponin I Total Protein Albumin Urine Color Urine Appearance Urine pH Ur Specific [place] Urine Protein Urine Glucose (UA) Urine Ketones Urine Blood Urine Nitrite Urine Bilirubin Urine Urobilinogen Ur Leukocyte Esterase Urine WBC (Auto) Urine RBC (Auto) Urine Casts (Auto) U Epithel Cells (Auto) Urine Bacteria (Auto) Stool Occult Blood Positive Blood Type Antibody Screen Antibody Identification Antigen Identification Crossmatch 11/01/19 11/01/19 20:30 22:45 WBC RBC Hgb Hct MCV MCH MCHC RDW Plt Count MPV Absolute Neuts (auto) Neutrophils % Lymphocytes % Monocytes % Eosinophils % Basophils % Nucleated RBC % PTT (Actin FS) Sodium Potassium Chloride Carbon Dioxide Anion Gap BUN Creatinine Est GFR (CKD-EPI)AfAm Est GFR (CKD-EPI)NonAf Random Glucose Lactic Acid Calcium Iron Ferritin Total Bilirubin AST ALT Alkaline Phosphatase Creatine Kinase Creatine Kinase Index CK-MB (CK-2) Troponin I Total Protein Albumin Urine Color Yellow Urine Appearance Clear Urine pH 5.0 D Ur Specific [place] 1.017 Urine Protein Negative Urine Glucose (UA) Negative Urine Ketones Negative Urine Blood Negative Urine Nitrite Negative Urine Bilirubin Negative Urine Urobilinogen 0.2 Ur Leukocyte Esterase Trace Urine WBC (Auto) 1 Urine RBC (Auto) 1 Urine Casts (Auto) 3 U Epithel Cells (Auto) 1.5 Urine Bacteria (Auto) 5.1 Stool Occult Blood Blood Type B POSITIVE Antibody Screen Positive Antibody Identification E Antigen Identification No Result Required. Crossmatch See Detail ASSESSMENT/PLAN: ATTENDING PHYSICIAN STATEMENT I saw and evaluated the patient. I reviewed the resident's note and discussed the case with the resident. I agree with the resident's findings and plan as documented. SUBJECTIVE: OBJECTIVE: ASSESSMENT AND PLAN: <Kimmie Winn - Last Filed: 11/02/19 03:30> CHIEF COMPLAINT: Weakness PCP: Dr. Browning HISTORY OF PRESENT ILLNESS: Patient is a 74 year old male wt PMH of CKD, s/p RUE fistula placement (no HD) , DM, HTN, HLD, s/p stent who presents with weakness. Pt is poor historian and confused during evaluation. He lives at home alone with VNS twice a week. Pt states that he "had an accident" in the bathroom one day ago where he had diarrhea that missed the toilet. He was on the ground attempting to clean up the mess and then could not get back up due to BL LE weakness. Pt's phone was not near him , so he cold not call anyone for help. He states that he was on the ground for 15 hours before someone found him. His children who live in [place] were unable to get ahold of him so they called another faily member who lives in [place] to come check on him. Pt denies any actual fall or LOC. He denies episodes of diarrhea prior to this event. Denies fevers, chills, weakness, chest pain, SOB, abd pain, lightheadedness, nausea, vomiting. Recent Travel: denies PAST MEDICAL HISTORY: As per HPI PAST SURGICAL HISTORY: Appendectomy Bypass, stent Social History: Smoking: quit in 1997 Alcohol: quit 3 years ago, used to be heavy drinker Drugs: denies Allergies SHERRY Inhibitors Allergy (Severe, Verified 11/01/19 16:21) Swelling angioedema Penicillins Allergy (Intermediate, Verified 11/01/19 16:21) Rash rash HOME MEDICATIONS: Home Medications Medication Instructions Recorded Albuterol Sulfate Inhaler - 2 inh IH BID 03/23/13 [Ventolin HFA Inhaler -] Allopurinol [Zyloprim -] 100 mg PO DAILY 03/23/13 Nebivolol HCl [Bystolic] 5 mg PO DAILY 03/23/13 Salmeterol/Fluticasone [Advair 1 inh IN BID 03/23/13 500Mcg/50Mcg -] Simvastatin [Zocor -] 40 mg PO HS 03/23/13 Omeprazole [Prilosec] 40 mg PO DAILY 07/01/16 Pregabalin [Lyrica] 100 mg PO BID 07/01/16 Insulin Aspart [Novolog] 4 unit SQ ASDIR 04/19/17 Dutasteride [Avodart] 0.5 mg PO DAILY 04/20/17 Lactulose [Cephulac -] 10 gm PO PRN 04/20/17 Tamsulosin HCl [Flomax -] 0.4 mg PO DAILY 04/20/17 Torsemide [Demadex -] 100 mg PO DAILY 04/20/17 Brimonidine Tartrate [Alphagan P 1 drop OU TID 07/23/17 0.1% -] Aspirin [ASA -] 81 mg PO ASDIR 11/16/18 Insulin Detemir [Levemir Flextouch] 6 unit SQ HS 01/18/19 REVIEW OF SYSTEMS CONSTITUTIONAL: Absent: fever, chills, diaphoresis, generalized weakness, malaise, loss of appetite, weight change HEENT: Absent: rhinorrhea, nasal congestion, throat pain, throat swelling, difficulty swallowing, mouth swelling, ear pain, eye pain, visual changes CARDIOVASCULAR: Absent: chest pain, syncope, palpitations, irregular heart rate, lightheadedness , peripheral edema RESPIRATORY: Absent: cough, shortness of breath, dyspnea with exertion, orthopnea, wheezing, stridor, hemoptysis GASTROINTESTINAL: Absent: abdominal pain, abdominal distension, nausea, vomiting, diarrhea, constipation, melena, hematochezia GENITOURINARY: Absent: dysuria, frequency, urgency, hesitancy, hematuria, flank pain, genital pain MUSCULOSKELETAL: Absent: myalgia, arthralgia, joint swelling, back pain, neck pain SKIN: Absent: rash, itching, pallor HEMATOLOGIC/IMMUNOLOGIC: Absent: easy bleeding, easy bruising, lymphadenopathy, frequent infections ENDOCRINE: Absent: unexplained weight gain, unexplained weight loss, heat intolerance, cold intolerance NEUROLOGIC: weakness Absent: headache, or paresthesias, dizziness, unsteady gait, seizure, mental status changes, bladder or bowel incontinence PSYCHIATRIC: Absent: anxiety, depression, suicidal or homicidal ideation, hallucinations. PHYSICAL EXAMINATION Vital Signs - 24 hr 11/01/19 11/01/19 11/02/19 16:21 23:41 00:45 Temperature 98.0 F 97.6 F Pulse Rate 102 H 97 H Pulse Rate [ 100 H Radial] Respiratory 18 20 19 Rate Blood Pressure 94/74 139/77 Blood Pressure 104/82 [Right Arm] O2 Sat by Pulse 98 99 100 Oximetry (%) GENERAL: Awake, alert, and fully oriented, but slow with answering and story inconsistent. HEAD: Normal with no signs of trauma. EYES: Pupils equal, round and reactive to light, extraocular movements intact, sclera anicteric, conjunctiva clear. No lid lag. EARS, NOSE, THROAT: Ears normal, nares patent, oropharynx clear without exudates. Moist mucous membranes. NECK: Normal range of motion, supple without lymphadenopathy, JVD, or masses. LUNGS: Breath sounds equal, clear to auscultation bilaterally. No wheezes, and no crackles. No accessory muscle use. HEART: Regular rate and rhythm, normal S1 and S2 without murmur, rub or gallop. ABDOMEN: Distended, soft, nontender, not distended, normoactive bowel sounds, no guarding, no rebound, no masses. No hepatomegaly or splenomegaly. RECTAL: external hemorrhoids, dark stool on glove (no amena blood), no masses, good rectal tone MUSCULOSKELETAL: Normal range of motion at all joints. No bony deformities or tenderness. No CVA tenderness. UPPER EXTREMITIES: 2+ pulses, warm, well-perfused. No cyanosis. No clubbing. No peripheral edema. LOWER EXTREMITIES: 2+ pulses, warm, well-perfused. No calf tenderness. Trace edema NEUROLOGICAL: Cranial nerves II-XII intact. Slow speech. Normal gait. PSYCHIATRIC: Cooperative. Good eye contact. Appropriate mood and affect. SKIN: Warm, dry, normal turgor, no rashes or lesions noted, normal capillary refill. Laboratory Results - last 24 hr CBC, BMP 11/01/19 16:47 11/01/19 16:47 ASSESSMENT/PLAN: Patient is a 74 year old male with PMH of CKD, s/p RUE fistula placement (no HD) , DM, HTN, HLD, s/p stent who presents with weakness. #Acute GI bleed Hgb: 6.9 FOBT: positive Transfuse 1 unit PRBC IV protonix 40mg BID Frequent CBC monitoring F/u iron studies IV NS @ 100ml/hr Tele monitoring GI consultation (Dr. Anna) Hold anti-hypertensive meds, torsemide and asa in setting of acute bleed #[place], BUN: 138.3 Pt seems altered, may need dialysis CT Head: no acute intracranial pathology RUE fistula placed, pt has not yet needed to begin HD Nephrology consulted (Dr. Tucker) #HTN Holding anti-hypertensive meds in setting of acute bleed Pt has been on the hypotensive side, will closely monitor #FEN IV NS @ 100ml/hr NPO for now #DVT ppx SCDs #Dispo Monitor on tele Visit type - Emergency Visit Emergency Visit: Yes ED Registration Date: 11/01/19 Care time: The patient presented to the Emergency Department on the above date and was hospitalized for further evaluation of their emergent condition. - New Patient This patient is new to me today: Yes Date on this admission: 11/02/19 - Critical Care Critical Care patient: No ATTENDING PHYSICIAN STATEMENT I saw and evaluated the patient. I reviewed the resident's note and discussed the case with the resident. I agree with the resident's findings and plan as documented. SUBJECTIVE: OBJECTIVE: ASSESSMENT AND PLAN:
[2019-11-02 06:43] LABS: BASO % 0.6 % (0-2.0); EOS % 0.8 % (0-4.5); HEMATOCRIT 17.5 % (35.4-49); LYMPH % 19.6 % (8-40); MCHC 32.9 g/dl (32.0-35.9); MEAN PLT VOLUME 10.4 fl (7.5-11.1); MONO % 5.7 % (3.8-10.2); NEUT % 73.3 % (42.8-82.8); PLATELET COUNT 92 K/MM3 (134-434); RBC 1.93 M/mm3 (4.00-5.60); RDW 16.7 % (11.9-15.9); WHITE BLOOD COUNT 7.7 K/mm3 (4.0-10.0)
[2019-11-02 06:51] LABS: HEMOGLOBIN 5.8 GM/dL (11.7-16.9)
[2019-11-02 07:12] LABS: ALBUMIN 2.8 g/dl (3.4-5.0); BILIRUBIN,TOTAL 0.2 mg/dL (0.2-1); CALCIUM 9.2 mg/dL (8.5-10.1); CREATININE 2.4 mg/dL (0.55-1.3); POTASSIUM 4.8 mmol/L (3.5-5.1); TOT PROT 5.4 g/dl (6.4-8.2)
[2019-11-02 07:18] LABS: BLOOD UREA NITROGEN 143.1 mg/dL (7-18)
[2019-11-02] MEDS: PANTOPRAZOLE SODIUM 40 MG VIAL IVPUSH SCH ×2 (09:56→21:32)
[2019-11-02] MEDS: TAMSULOSIN HCL 0.4 MG CAP PO SCH (09:56)
[2019-11-02] MEDS: ALBUTEROL SO4 8 GM HFA INHALER IH SCH ×2 (09:56→21:31)
--- NOTE | 2019-11-02 10:19 | CON.CARD ---
Cardiology Consult (text) - Consultation Consultation Note: cc: weakness hpi: 74 m hx cad s/p cabg 2004, hld, ckd, dm here with weakness. Pt was at home cleaning floor and felt too weak to stand up. No fall. No cp sob palps dizzy loc pnd orthopnea le edema. Found to have severe anemia here. pmh: per hpi psh: cabg social: ex tob fam: no premature cad, scd ros: per hpi; all others nl meds: Home Medications Medication Instructions Recorded Albuterol Sulfate Inhaler - 2 inh IH BID 03/23/13 [Ventolin HFA Inhaler -] Allopurinol [Zyloprim -] 100 mg PO DAILY 03/23/13 Nebivolol HCl [Bystolic] 5 mg PO DAILY 03/23/13 Salmeterol/Fluticasone [Advair 1 inh IN BID 03/23/13 500Mcg/50Mcg -] Simvastatin [Zocor -] 40 mg PO HS 03/23/13 Omeprazole [Prilosec] 40 mg PO DAILY 07/01/16 Pregabalin [Lyrica] 100 mg PO BID 07/01/16 Insulin Aspart [Novolog] 4 unit SQ ASDIR 04/19/17 Dutasteride [Avodart] 0.5 mg PO DAILY 04/20/17 Lactulose [Cephulac -] 10 gm PO PRN 04/20/17 Tamsulosin HCl [Flomax -] 0.4 mg PO DAILY 04/20/17 Torsemide [Demadex -] 100 mg PO DAILY 04/20/17 Brimonidine Tartrate [Alphagan P 1 drop OU TID 07/23/17 0.1% -] Aspirin [ASA -] 81 mg PO ASDIR 11/16/18 Insulin Detemir [Levemir Flextouch] 6 unit SQ HS 01/18/19 pe: Vital Signs Period Temp Pulse Resp BP Sys/Cabral Pulse Ox Last 24 Hr 97.6 F-98.0 F 92-102 18-20 94-139/47-82 98-100 nad no jvd rrr s1s2 no mrg cta bl nl eff aao3 no le e/c/c abd nt nd pos bs no jaundice diaphoresis pos dp pt no carotid bruits Laboratory Last Values WBC 7.7 K/mm3 (4.0-10.0) 11/02/19 05:55 RBC 1.93 M/mm3 (4.00-5.60) L 11/02/19 05:55 Hgb 5.8 GM/dL (11.7-16.9) L* 11/02/19 05:55 Hct 17.5 % (35.4-49) L D 11/02/19 05:55 MCV 91.0 fl (80-96) 11/02/19 05:55 MCH 30.0 pg (25.7-33.7) 11/02/19 05:55 MCHC 32.9 g/dl (32.0-35.9) 11/02/19 05:55 RDW 16.7 % (11.9-15.9) H 11/02/19 05:55 Plt Count 92 K/MM3 (134-434) L 11/02/19 05:55 MPV 10.4 fl (7.5-11.1) 11/02/19 05:55 Absolute Neuts (auto) 5.6 K/mm3 (1.5-8.0) 11/02/19 05:55 Neutrophils % 73.3 % (42.8-82.8) 11/02/19 05:55 Lymphocytes % 19.6 % (8-40) D 11/02/19 05:55 Monocytes % 5.7 % (3.8-10.2) 11/02/19 05:55 Eosinophils % 0.8 % (0-4.5) 11/02/19 05:55 Basophils % 0.6 % (0-2.0) 11/02/19 05:55 Nucleated RBC % 0 % (0-0) 11/02/19 05:55 PTT (Actin FS) 28.0 SECONDS (25.2-36.5) 11/01/19 20:25 Sodium 145 mmol/L (136-145) 11/02/19 05:55 Potassium 4.8 mmol/L (3.5-5.1) 11/02/19 05:55 Chloride 115 mmol/L (98-107) H 11/02/19 05:55 Carbon Dioxide 23 mmol/L (21-32) 11/02/19 05:55 Anion Gap 7 MMOL/L (8-16) L 11/02/19 05:55 BUN 143.1 mg/dL (7-18) H* 11/02/19 05:55 Creatinine 2.4 mg/dL (0.55-1.3) H 11/02/19 05:55 Est GFR (CKD-EPI)AfAm 29.69 11/02/19 05:55 Est GFR (CKD-EPI)NonAf 25.61 11/02/19 05:55 Random Glucose 168 mg/dL (74-106) H 11/02/19 05:55 Lactic Acid 2.3 mmol/L (0.4-2.0) H* 11/01/19 16:47 Calcium 9.2 mg/dL (8.5-10.1) 11/02/19 05:55 Iron 46 ug/dL (50-175) L 11/02/19 05:55 TIBC 236 ug/dL (250-450) L 11/02/19 05:55 Iron Saturation 19 % (17.5-39) 11/02/19 05:55 Unsaturated IBC 190 ug/dL (200-275) L 11/02/19 05:55 Ferritin 29.4 ng/ml (8-388) 11/01/19 16:47 Total Bilirubin 0.2 mg/dL (0.2-1) 11/02/19 05:55 AST 29 U/L (15-37) 11/02/19 05:55 ALT 20 U/L (13-61) 11/02/19 05:55 Alkaline Phosphatase 54 U/L (45-117) 11/02/19 05:55 Creatine Kinase 870 U/L (26-308) H 11/02/19 05:55 Creatine Kinase Index 0.4 % (0.0-5.0) 11/02/19 05:55 CK-MB (CK-2) 4.1 ng/mL (0.5-3.6) H 11/02/19 05:55 Troponin I 0.06 ng/ml (0.00-0.05) H 11/02/19 05:55 Total Protein 5.4 g/dl (6.4-8.2) L 11/02/19 05:55 Albumin 2.8 g/dl (3.4-5.0) L 11/02/19 05:55 Urine Color Yellow 11/01/19 22:45 Urine Appearance Clear 11/01/19 22:45 Urine pH 5.0 (5.0-8.0) D 11/01/19 22:45 Ur Specific [place] 1.017 (1.010-1.035) 11/01/19 22:45 Urine Protein Negative (NEGATIVE) 11/01/19 22:45 Urine Glucose (UA) Negative (NEGATIVE) 11/01/19 22:45 Urine Ketones Negative (NEGATIVE) 11/01/19 22:45 Urine Blood Negative (NEGATIVE) 11/01/19 22:45 Urine Nitrite Negative (NEGATIVE) 11/01/19 22:45 Urine Bilirubin Negative (NEGATIVE) 11/01/19 22:45 Urine Urobilinogen 0.2 mg/dL (0.2-1.0) 11/01/19 22:45 Ur Leukocyte Esterase Trace (NEGATIVE) 11/01/19 22:45 Urine WBC (Auto) 1 /hpf (0-5) 11/01/19 22:45 Urine RBC (Auto) 1 /hpf (0-4) 11/01/19 22:45 Urine Casts (Auto) 3 /lpf (0-8) 11/01/19 22:45 U Epithel Cells (Auto) 1.5 /HPF (0-5/HPF) 11/01/19 22:45 Urine Bacteria (Auto) 5.1 /hpf (NEGATIVE) 11/01/19 22:45 Stool Occult Blood Positive (NEGATIVE) 11/01/19 20:25 Blood Type B POSITIVE 11/01/19 20:30 Antibody Screen Positive 11/01/19 20:30 Antibody Identification E 11/01/19 20:30 Antigen Identification No Result Required. 11/01/19 20:30 Crossmatch See Detail 11/01/19 20:30 tele: sr ecg: sinus tach, nl intervals, no ischemic changes a/p: 74 m hx cad s/p cabg 2004, hld, ckd, dm here with weakness. weakness, anemia: -severe anemia, hgb 5s -plan per pmd, GI -no cardiac contradindications to foc/egd cad, remote cabg: -stable, no signs acs -borderline trops with flat trend, nl ck index, not c/w acs -cont statin -holding asa 2/2 anemia. holding bb for now as well given severe anemia hld: -cont statin ckd: -cr near baseline
--- NOTE | 2019-11-02 10:29 | EKG ---
Test Reason : Blood Pressure : / mmHG Vent. Rate : 107 BPM Atrial Rate : 107 BPM P-R Int : 184 ms QRS Dur : 090 ms QT Int : 340 ms P-R-T Axes : 022 052 083 degrees QTc Int : 453 ms SINUS TACHYCARDIA NONSPECIFIC T WAVE ABNORMALITY ABNORMAL ECG WHEN COMPARED WITH ECG OF 19-JUL-2017 13:41, NONSPECIFIC T WAVE ABNORMALITY NOW EVIDENT IN INFERIOR LEADS Confirmed by SHIRA NELSON, FARTUN ([id number]) on 11/02/2019 10:29:17 AM Referred By: Confirmed By:FARTUN SILVA MD
[2019-11-02] MEDS: BUDESONIDE/FORMETEROL FUMARATE 160/4.5 mcg INHALER IH SCH ×2 (10:30→21:31)
--- NOTE | 2019-11-02 10:48 | CON.GI ---
Consult Consult Specialty:: GI Reason for Consultation:: anemia - History of Present Illness History of Present Illness: 74 y/o with history of ESRD on HD, HTN, DM, COPD, CAD s/p triple bypass 2003, esophageal varices secondary to alcoholic cirrhosis. Came in for bilateral leg weakness unable to get up from the floor. MRI 08/14/19 1.2cm lymph node to the left of the celiac trunk of unclear etiology, upper abdominal hetal mesentery, central hepatic cyts, largest measuring 9mm communicating with the biliary tree. Upper EUS done with Dr.David Lynn 05/31/19 showing one malignant appearing lymph node in peripancreatic region and intramural lesion in the antrum arising from 4th layer s/p FNA non diagnostic. Colonoscopy done 10/16/19 with moderate diverticulosis in the descending colon and 0.5 cm tubulovillous adenoma polyp in the descending colon. The patient was admitted because of symptomatic anemia.He felt very weak unable to pick hi,mself up. He denies CP, SOB and syncope. He denies, melena and rectal bleeding - Past Medical History Cardio/Vascular: Yes: HTN, Hyperlipdemia Pulmonary: Yes: COPD Gastrointestinal: Yes: Hemorrhoids Renal/: Yes: Renal Failure Endocrine: Yes: Diabetes Mellitus, Other (Hypercalcemia) - Past Surgical History Past Surgical History: Yes: Appendectomy (1962), Bypass (2002), Stent - Alcohol/Substance Use Hx Alcohol Use: Yes - Smoking History Smoking history: Former smoker Have you smoked in the past 12 months: No Aproximately how many cigarettes per day: 0 If you are a former smoker, when did you quit?: 1997 Home Medications - Allergies Allergies/Adverse Reactions: Allergies Allergy/AdvReac Type Severity Reaction Status Date / Time SHERRY Inhibitors Allergy Severe Swelling Verified 11/01/19 16:21 Penicillins Allergy Intermediate Rash Verified 11/01/19 16:21 - Home Medications Home Medications: Ambulatory Orders Albuterol Sulfate Inhaler - [Ventolin HFA Inhaler -] 2 inh IH BID 03/23/13 Allopurinol [Zyloprim -] 100 mg PO DAILY 03/23/13 Nebivolol HCl [Bystolic] 5 mg PO DAILY 03/23/13 Salmeterol/Fluticasone [Advair 500Mcg/50Mcg -] 1 inh IN BID 03/23/13 Simvastatin [Zocor -] 40 mg PO HS 03/23/13 Omeprazole [Prilosec] 40 mg PO DAILY 07/01/16 Pregabalin [Lyrica] 100 mg PO BID 07/01/16 Insulin Aspart [Novolog] 4 unit SQ ASDIR 04/19/17 Dutasteride [Avodart] 0.5 mg PO DAILY 04/20/17 Lactulose [Cephulac -] 10 gm PO PRN 04/20/17 Tamsulosin HCl [Flomax -] 0.4 mg PO DAILY 04/20/17 Torsemide [Demadex -] 100 mg PO DAILY 04/20/17 Brimonidine Tartrate [Alphagan P 0.1% -] 1 drop OU TID 07/23/17 Aspirin [ASA -] 81 mg PO ASDIR 11/16/18 Insulin Detemir [Levemir Flextouch] 6 unit SQ HS 01/18/19 Review of Systems - Review of Systems Constitutional: reports: Lethargy Eyes: reports: No Symptoms HENT: reports: No Symptoms Neck: reports: No Symptoms Respiratory: reports: No Symptoms Gastrointestinal: denies: Abdominal Pain, Bloating, Constipation, Nausea, Rectal Bleeding Neurological: reports: Weakness. denies: Change in LOC, Change in Speech, Confusion, Headache Physical Exam-GI Vital Signs: Vital Signs Temperature 97.8 F 11/02/19 06:00 Pulse Rate 92 H 11/02/19 06:00 Respiratory Rate 18 11/02/19 06:00 Blood Pressure 120/47 L 11/02/19 06:00 O2 Sat by Pulse Oximetry (%) 100 11/02/19 00:45 Constitutional: Yes: Obese Eyes: No: Conjunctiva Clear HENT: No: Atraumatic Neck: No: Supple Cardiovascular: No: Regular Rate and Rhythm Respiratory: No: Regular ...Auscultate: No: Normoactive Bowel Sounds ...Palpate: Yes: Soft. No: Firm/Rigid, Guarding, Hepatomegaly, Mass, Pulsatile Mass, Splenomegaly, Tenderness Labs: CBC, BMP 11/02/19 05:55 11/02/19 05:55 Problem List - Problems (1) GIB (gastrointestinal bleeding) Assessment/Plan: R> IV Protonix 40mg bid For EGD Code(s): K92.2 - GASTROINTESTINAL HEMORRHAGE, UNSPECIFIED Qualifiers: GI bleed type/associated pathology: unspecified gastrointestinal hemorrhage type Qualified Code(s): K92.2 - Gastrointestinal hemorrhage, unspecified
--- NOTE | 2019-11-02 10:55 | CONSULT ---
Consult - text type - Consultation Consultation Note: Renal consult for CKD This is a 74 year old gentleman with history of CKD stage 4 (baseline Cr 2.4), insulin dependent diabetes, hypertension, BPH, cirrhosis, hx of GI bleed who presented with fall and generalized weakness and noted to have acute anemia. Pt seen and examined at the bedside. He has no acute complaints. Currently getting PRBC transfusion. He reports he got on the floor at home and could not get back up. He could not recall if he had any dark stools. He did report vomting blood x 1 once he was on the floor but could not quantify. Denies any abdominal pain, N/V/D. Denies any metallic taste in the mouth. No flank pain. Reports he he making urine. No tremors or seizures. PMhx: as above Family Hx: NC Social Hx: No T/A/D ROS: as per HPI, all other pertinent ros negative Home Medications Medication Instructions Recorded Albuterol Sulfate Inhaler - 2 inh IH BID 03/23/13 [Ventolin HFA Inhaler -] Allopurinol [Zyloprim -] 100 mg PO DAILY 03/23/13 Nebivolol HCl [Bystolic] 5 mg PO DAILY 03/23/13 Salmeterol/Fluticasone [Advair 1 inh IN BID 03/23/13 500Mcg/50Mcg -] Simvastatin [Zocor -] 40 mg PO HS 03/23/13 Omeprazole [Prilosec] 40 mg PO DAILY 07/01/16 Pregabalin [Lyrica] 100 mg PO BID 07/01/16 Insulin Aspart [Novolog] 4 unit SQ ASDIR 04/19/17 Dutasteride [Avodart] 0.5 mg PO DAILY 04/20/17 Lactulose [Cephulac -] 10 gm PO PRN 04/20/17 Tamsulosin HCl [Flomax -] 0.4 mg PO DAILY 04/20/17 Torsemide [Demadex -] 100 mg PO DAILY 04/20/17 Brimonidine Tartrate [Alphagan P 1 drop OU TID 07/23/17 0.1% -] Aspirin [ASA -] 81 mg PO ASDIR 11/16/18 Insulin Detemir [Levemir Flextouch] 6 unit SQ HS 01/18/19 Vital Signs Temperature 97.8 F 11/02/19 10:00 Pulse Rate 88 11/02/19 10:00 Respiratory Rate 18 11/02/19 10:00 Blood Pressure 104/52 L 11/02/19 10:00 O2 Sat by Pulse Oximetry (%) 100 11/02/19 00:45 Intake & Output 10/30/19 10/31/19 11/01/19 11/02/19 23:59 23:59 23:59 23:59 Intake Total 450 Balance 450 Weight 95.254 kg 94.12 kg NAD awake and alert neck supple RRR Dec BS, no rales or wheeze soft NT/ND, Obese no bladder distension no LE edema, clubbing or cyanosis CBC, BMP 11/02/19 05:55 11/02/19 05:55 Current Medications Albuterol Sulfate (Ventolin Hfa Inhaler -) 2 puff IH BID [facility] Last Admin: 11/02/19 09:56 Dose: 2 inh Atorvastatin Calcium (Lipitor -) 20 mg PO HS STACEY Budesonide/Formoterol Fumarate (Symbicort 160/4.5mcg -) 2 puff IH BID [facility] Last Admin: 11/02/19 10:30 Dose: 2 inh Sodium Chloride (Normal Saline -) 1,000 mls @ 100 mls/hr IV ASDIR STACEY Pantoprazole Sodium (Protonix Iv) 40 mg IVPUSH BID [facility] Last Admin: 11/02/19 09:56 Dose: 40 mg Tamsulosin HCl (Flomax -) 0.4 mg PO DAILY@0830 [facility] Last Admin: 11/02/19 09:56 Dose: 0.4 mg 74 year old gentleman with history of CKD stage 4 (baseline Cr 2.4), insulin dependent diabetes, hypertension, BPH, cirrhosis, hx of GI bleed who presented with fall and generalized weakness and noted to have acute anemia. 1. acute anemia likely secondary to GI bleed 2. CKD stage 4 secondary to diabetic nephropathy 3. Azotemia (high BUN likely from upper GI bleed) 4. DM type 2 5. Hypertension 6. Cirrhosis history 7. BPH Suspect that Azotemia is likely due to GI absorbstion of blood from suspected upper GI bleed. Pt is w/o uremic symptoms. The Cr is actually lower then it was on his last office visit (2.8). There is no acute indication for REMOTE CODERS would hold NS as pt has history of volume overload Transfuse PRBC Check iron studies (add to am labs) Give DDAVP IV to decrease risk of uremic platelet dysfunction give CKD and suspected acute bleed continue flomax but can hold if BP is marginal or low Thank you Will follow Erwin Nascimento DO
[2019-11-02] MEDS ORDERED: DEXTROSE 5%-0.45% SALINE 1,000 ML IV SCH (12:15)
[2019-11-02] MEDS ORDERED: DESMOPRESSIN ACETATE 4 MCG/ML AMP IVPB ONE (13:30)
--- NOTE | 2019-11-02 13:36 | PN ---
Physical Exam: SUBJECTIVE: Patient seen and examined at the bedside. offers no compliants. Spoke to his daughter this morning and gave her update. Patient denies any recent ETOH abuse, has been clean/sober for 42 months, does not smoke, quit in 1997 Has been taking Mirian Richmond for a few weeks at home for a head cold, takes a baby asa 81mg four times per week OBJECTIVE: getting 2 units of prbc with a repeat CBC at 9pm tonight for c aolonoscopy tomorrow, NPO at midnight [facility] 74 [facility], s/p RUE fistula placement (no HD) , DM, HTN, HLD, s/p stent who presents with weakness. Pt is poor historian and confused during evaluation. He lives at home alone with VNS twice a week. Pt states that he "had an accident" in the bathroom one day ago where he had diarrhea that missed the toilet. He was on the ground attempting to clean up the mess and then could not get back up due to BL LE weakness. He saw blood in the toilet. Being admitted with symptomatic anemia and currently getting transfused prbcs. Colonoscopy in the a.m. Vital Signs Period Temp Pulse Resp BP Sys/Cabral Pulse Ox Last 24 Hr 97.6 F-98.0 F 88-102 18-20 94-139/47-82 98-100 GENERAL: The patient is awake, alert, and fully oriented, in no acute distress. HEAD: Normal with no signs of trauma. EYES: PERRL, extraocular movements intact, sclera anicteric, conjunctiva clear. No ptosis. ENT: Ears normal, nares patent, oropharynx clear without exudates, moist mucous membranes. NECK: Trachea midline, full range of motion, supple. LUNGS: Breath sounds equal, clear to auscultation bilaterally HEART: Regular rate and rhythm, mild tachycardia ABDOMEN: Soft, nontender, nondistended, normoactive bowel sounds EXTREMITIES: no edema. rue av fistula placement PSYCH: Normal mood, normal affect. SKIN: skin tear right mid arm Laboratory Results - last 24 hr 11/01/19 11/01/19 11/01/19 16:47 16:47 16:47 WBC 9.0 RBC 2.34 L Hgb 6.9 L* Hct 21.4 L D MCV 91.3 MCH 29.2 MCHC 32.0 RDW 16.5 H Plt Count 103 L MPV 10.5 Absolute Neuts (auto) 7.3 Neutrophils % 80.9 D Lymphocytes % 13.4 D Monocytes % 4.8 Eosinophils % 0.5 D Basophils % 0.4 Nucleated RBC % 0 PTT (Actin FS) Sodium 146 H Potassium 4.7 Chloride 112 H Carbon Dioxide 26 Anion Gap 7 L BUN 138.3 H* Creatinine 2.5 H Est GFR (CKD-EPI)AfAm 28.26 Est GFR (CKD-EPI)NonAf 24.38 POC Glucometer Random Glucose 173 H Lactic Acid Calcium 9.9 Iron 79 TIBC Iron Saturation Unsaturated IBC Ferritin 29.4 Total Bilirubin 0.1 L AST 32 ALT 23 Alkaline Phosphatase 61 Creatine Kinase 1024 H Creatine Kinase Index 0.5 CK-MB (CK-2) 5.3 H Troponin I 0.07 H Total Protein 5.8 L Albumin 3.0 L Urine Color Urine Appearance Urine pH Ur Specific [place] Urine Protein Urine Glucose (UA) Urine Ketones Urine Blood Urine Nitrite Urine Bilirubin Urine Urobilinogen Ur Leukocyte Esterase Urine WBC (Auto) Urine RBC (Auto) Urine Casts (Auto) U Epithel Cells (Auto) Urine Bacteria (Auto) Stool Occult Blood Blood Type Antibody Screen Antibody Identification Antigen Identification Crossmatch 11/01/19 11/01/19 11/01/19 16:47 20:25 20:25 WBC RBC Hgb Hct MCV MCH MCHC RDW Plt Count MPV Absolute Neuts (auto) Neutrophils % Lymphocytes % Monocytes % Eosinophils % Basophils % Nucleated RBC % PTT (Actin FS) 28.0 Sodium Potassium Chloride Carbon Dioxide Anion Gap BUN Creatinine Est GFR (CKD-EPI)AfAm Est GFR (CKD-EPI)NonAf POC Glucometer Random Glucose Lactic Acid 2.3 H* Calcium Iron TIBC Iron Saturation Unsaturated IBC Ferritin Total Bilirubin AST ALT Alkaline Phosphatase Creatine Kinase Creatine Kinase Index CK-MB (CK-2) Troponin I Total Protein Albumin Urine Color Urine Appearance Urine pH Ur Specific [place] Urine Protein Urine Glucose (UA) Urine Ketones Urine Blood Urine Nitrite Urine Bilirubin Urine Urobilinogen Ur Leukocyte Esterase Urine WBC (Auto) Urine RBC (Auto) Urine Casts (Auto) U Epithel Cells (Auto) Urine Bacteria (Auto) Stool Occult Blood Positive Blood Type Antibody Screen Antibody Identification Antigen Identification Crossmatch 11/01/19 11/01/19 11/02/19 20:30 22:45 05:55 WBC 7.7 RBC 1.93 L Hgb 5.8 L* Hct 17.5 L D MCV 91.0 MCH 30.0 MCHC 32.9 RDW 16.7 H Plt Count 92 L MPV 10.4 Absolute Neuts (auto) 5.6 Neutrophils % 73.3 Lymphocytes % 19.6 D Monocytes % 5.7 Eosinophils % 0.8 Basophils % 0.6 Nucleated RBC % 0 PTT (Actin FS) Sodium Potassium Chloride Carbon Dioxide Anion Gap BUN Creatinine Est GFR (CKD-EPI)AfAm Est GFR (CKD-EPI)NonAf POC Glucometer Random Glucose Lactic Acid Calcium Iron TIBC Iron Saturation Unsaturated IBC Ferritin Total Bilirubin AST ALT Alkaline Phosphatase Creatine Kinase Creatine Kinase Index CK-MB (CK-2) Troponin I Total Protein Albumin Urine Color Yellow Urine Appearance Clear Urine pH 5.0 D Ur Specific [place] 1.017 Urine Protein Negative Urine Glucose (UA) Negative Urine Ketones Negative Urine Blood Negative Urine Nitrite Negative Urine Bilirubin Negative Urine Urobilinogen 0.2 Ur Leukocyte Esterase Trace Urine WBC (Auto) 1 Urine RBC (Auto) 1 Urine Casts (Auto) 3 U Epithel Cells (Auto) 1.5 Urine Bacteria (Auto) 5.1 Stool Occult Blood Blood Type B POSITIVE Antibody Screen Positive Antibody Identification E Antigen Identification No Result Required. Crossmatch See Detail 11/02/19 11/02/19 05:55 12:09 WBC RBC Hgb Hct MCV MCH MCHC RDW Plt Count MPV Absolute Neuts (auto) Neutrophils % Lymphocytes % Monocytes % Eosinophils % Basophils % Nucleated RBC % PTT (Actin FS) Sodium 145 Potassium 4.8 Chloride 115 H Carbon Dioxide 23 Anion Gap 7 L BUN 143.1 H* Creatinine 2.4 H Est GFR (CKD-EPI)AfAm 29.69 Est GFR (CKD-EPI)NonAf 25.61 POC Glucometer 128 Random Glucose 168 H Lactic Acid Calcium 9.2 Iron 46 L TIBC 236 L Iron Saturation 19 Unsaturated IBC 190 L Ferritin Total Bilirubin 0.2 AST 29 ALT 20 Alkaline Phosphatase 54 Creatine Kinase 870 H Creatine Kinase Index 0.4 CK-MB (CK-2) 4.1 H Troponin I 0.06 H Total Protein 5.4 L Albumin 2.8 L Urine Color Urine Appearance Urine pH Ur Specific [place] Urine Protein Urine Glucose (UA) Urine Ketones Urine Blood Urine Nitrite Urine Bilirubin Urine Urobilinogen Ur Leukocyte Esterase Urine WBC (Auto) Urine RBC (Auto) Urine Casts (Auto) U Epithel Cells (Auto) Urine Bacteria (Auto) Stool Occult Blood Blood Type Antibody Screen Antibody Identification Antigen Identification Crossmatch Active Medications Generic Name Dose Route Start Last Admin Trade Name Freq PRN Reason Stop Dose Admin Albuterol Sulfate 2 puff 11/02/19 10:00 11/02/19 09:56 Ventolin Hfa Inhaler - IH 2 inh BID STACEY Administration Atorvastatin Calcium 20 mg 11/02/19 22:00 Lipitor - PO HS STACEY Budesonide/Formoterol Fumarate 2 puff 11/02/19 10:00 11/02/19 10:30 Symbicort 160/4.5mcg - IH 2 inh BID STACEY Administration Dextrose/Sodium Chloride 1,000 mls @ 42 mls/hr 11/02/19 12:15 D5-1/2ns - IV ASDIR STACEY Pantoprazole Sodium 40 mg 11/02/19 10:00 11/02/19 09:56 Protonix Iv IVPUSH 40 mg BID STACEY Administration Tamsulosin HCl 0.4 mg 11/02/19 08:30 11/02/19 09:56 Flomax - PO 0.4 mg DAILY@0830 STACEY Administration ASSESSMENT/PLAN: Problem List - Problems (1) GIB (gastrointestinal bleeding) Assessment/Plan: Hgb: 6.9 on admission, stool occult positive. given 1 unit prbc overnight, hmg still very low @ 5.8. for 2 units of prbc and repeat cbc after 2nd unit. on protonix, clears. colonoscopy tomorrow. 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 monitor Code(s): F10.129 - ALCOHOL ABUSE WITH INTOXICATION, UNSPECIFIED Qualifiers: Complication of substance-induced condition: uncomplicated Qualified Code(s ): F10.920 - Alcohol use, unspecified with intoxication, uncomplicated (7) ESRD (end stage renal disease) Assessment/Plan: followed by renal ddp ordered Code(s): N18.6 - END STAGE RENAL DISEASE (8) Weakness Assessment/Plan: for Pt Code(s): R53.1 - WEAKNESS Visit type - Emergency Visit Emergency Visit: Yes ED Registration Date: 11/01/19 Care time: The patient presented to the Emergency Department on the above date and was hospitalized for further evaluation of their emergent condition. - New Patient This patient is new to me today: No - Critical Care Critical Care patient: No - Discharge Referral Referred to [facility] Med P.C.: No
[2019-11-02] MEDS: BACITRACIN 15 GM TUBE TOPICAL OINTMENT TP SCH ×2 (14:08→21:31)
[2019-11-02] MEDS ORDERED: ATORVASTATIN CA 20 MG TABLET (FP) PO SCH (22:00)
[2019-11-02 22:22] LABS: BASO % 0.9 % (0-2.0); EOS % 2.6 % (0-4.5); HEMATOCRIT 24.6 % (35.4-49); HEMOGLOBIN 8.1 GM/dL (11.7-16.9); MCH 29.6 pg (25.7-33.7); MCHC 32.7 g/dl (32.0-35.9); MEAN CELL VOLUME 90.4 fl (80-96); MEAN PLT VOLUME 10.4 fl (7.5-11.1); MONO % 5.6 % (3.8-10.2); NEUT % 68.9 % (42.8-82.8); PLATELET COUNT 80 K/MM3 (134-434); RBC 2.73 M/mm3 (4.00-5.60); RDW 15.6 % (11.9-15.9); WHITE BLOOD COUNT 6.3 K/mm3 (4.0-10.0)
[2019-11-03 07:01] LABS: BASO % 0.6 % (0-2.0); EOS % 3.7 % (0-4.5); HEMATOCRIT 25.4 % (35.4-49); HEMOGLOBIN 8.5 GM/dL (11.7-16.9); LYMPH % 25.2 % (8-40); MCH 29.5 pg (25.7-33.7); MCHC 33.5 g/dl (32.0-35.9); MEAN CELL VOLUME 88.1 fl (80-96); MEAN PLT VOLUME 9.3 fl (7.5-11.1); MONO % 5.6 % (3.8-10.2); NEUT % 64.9 % (42.8-82.8); PLATELET COUNT 92 K/MM3 (134-434); RBC 2.88 M/mm3 (4.00-5.60); RDW 15.6 % (11.9-15.9); WHITE BLOOD COUNT 6.1 K/mm3 (4.0-10.0)
[2019-11-03 07:39] LABS: ALBUMIN 2.8 g/dl (3.4-5.0); BILIRUBIN,TOTAL 0.5 mg/dL (0.2-1); CALCIUM 8.8 mg/dL (8.5-10.1); CREATININE 2.1 mg/dL (0.55-1.3); MAGNESIUM 2.5 mg/dL (1.8-2.4); PHOSPHOROUS 3.1 mg/dL (2.5-4.9); POTASSIUM 3.9 mmol/L (3.5-5.1); TOT PROT 5.6 g/dl (6.4-8.2)
[2019-11-03 07:51] LABS: BLOOD UREA NITROGEN 106.4 mg/dL (7-18)
--- NOTE | 2019-11-03 09:53 | PN ---
Progress Note, Physician - Current Medication List Current Medications: Active Medications Albuterol Sulfate (Ventolin Hfa Inhaler -) 2 puff IH BID [facility] Last Admin: 11/02/19 21:31 Dose: 2 inh Atorvastatin Calcium (Lipitor -) 20 mg PO HS [facility] Last Admin: 11/02/19 21:31 Dose: 20 mg Bacitracin (Bacitracin -) 1 applic TP BID [facility] Last Admin: 11/02/19 21:31 Dose: 1 applic Budesonide/Formoterol Fumarate (Symbicort 160/4.5mcg -) 2 puff IH BID [facility] Last Admin: 11/02/19 21:31 Dose: 2 inh Dextrose/Sodium Chloride (D5-1/2ns -) 1,000 mls @ 42 mls/hr IV ASDIR [facility] Last Admin: 11/02/19 14:12 Dose: 42 mls/hr Pantoprazole Sodium (Protonix Iv) 40 mg IVPUSH BID [facility] Last Admin: 11/02/19 21:32 Dose: 40 mg Tamsulosin HCl (Flomax -) 0.4 mg PO DAILY@0830 [facility] Last Admin: 11/02/19 09:56 Dose: 0.4 mg - Objective Vital Signs: Vital Signs Temperature 97.8 F 11/03/19 05:00 Pulse Rate 73 11/03/19 05:00 Respiratory Rate 18 11/03/19 05:00 Blood Pressure 130/57 L 11/03/19 05:00 O2 Sat by Pulse Oximetry (%) 99 11/02/19 21:00 Labs: CBC, BMP 11/03/19 06:37 11/03/19 06:37
[2019-11-03] MEDS: PANTOPRAZOLE SODIUM 40 MG VIAL IVPUSH SCH ×2 (10:21→21:28)
[2019-11-03] MEDS: BACITRACIN 15 GM TUBE TOPICAL OINTMENT TP SCH ×2 (10:21→21:28)
[2019-11-03] MEDS: TAMSULOSIN HCL 0.4 MG CAP PO SCH (10:21)
[2019-11-03] MEDS: BUDESONIDE/FORMETEROL FUMARATE 160/4.5 mcg INHALER IH SCH ×2 (10:22→21:27)
[2019-11-03] MEDS: ALBUTEROL SO4 8 GM HFA INHALER IH SCH ×2 (10:22→21:28)
--- NOTE | 2019-11-03 11:34 | PN ---
Progress Note, Physician Chief Complaint: S/P 2 u PRBC. No complaints offered. Awaiting colonscopy History of Present Illness: Patient is a 74 year old male wtih PMH of CKD, s/p RUE fistula placement (no HD) , DM, HTN, HLD, s/p stent who presents with weakness. Pt is poor historian and confused during evaluation. He lives at home alone with VNS twice a week. Pt states that he "had an accident" in the bathroom one day ago where he had diarrhea that missed the toilet. He was on the ground attempting to clean up the mess and then could not get back up due to BL LE weakness. He saw blood in the toilet. Being admitted with symptomatic anemia and currently getting transfused prbcs. Pending colonscopy - Current Medication List Current Medications: Active Medications Albuterol Sulfate (Ventolin Hfa Inhaler -) 2 puff IH BID [facility] Last Admin: 11/03/19 10:22 Dose: 2 inh Atorvastatin Calcium (Lipitor -) 20 mg PO HS [facility] Last Admin: 11/02/19 21:31 Dose: 20 mg Bacitracin (Bacitracin -) 1 applic TP BID [facility] [place] Last Admin: 11/03/19 10:21 Dose: 1 applic Budesonide/Formoterol Fumarate (Symbicort 160/4.5mcg -) 2 puff IH BID [facility] [place] Last Admin: 11/03/19 10:22 Dose: 2 inh Dextrose/Sodium Chloride (D5-1/2ns -) 1,000 mls @ 42 mls/hr IV ASDIR [facility] [place] Last Admin: 11/02/19 14:12 Dose: 42 mls/hr Pantoprazole Sodium (Protonix Iv) 40 mg IVPUSH BID [facility] [place] Last Admin: 11/03/19 10:21 Dose: 40 mg Tamsulosin HCl (Flomax -) 0.4 mg PO DAILY@0830 [facility] [place] Last Admin: 11/03/19 10:21 Dose: Not Given - Objective Vital Signs: Vital Signs Temperature 97.8 F 11/03/19 05:00 Pulse Rate 73 11/03/19 05:00 Respiratory Rate 18 11/03/19 05:00 Blood Pressure 130/57 L 11/03/19 05:00 O2 Sat by Pulse Oximetry (%) 99 11/02/19 21:00 Constitutional: Yes: Well Nourished, No Distress, Calm Eyes: Yes: WNL, Conjunctiva Clear HENT: Yes: WNL, Atraumatic, Normocephalic Neck: Yes: WNL, Supple, Trachea Midline Cardiovascular: Yes: WNL, Regular Rate and Rhythm Respiratory: Yes: WNL, Regular, CTA Bilaterally Gastrointestinal: Yes: WNL, Normal Bowel Sounds ...Rectal Exam: Yes: Guaiac Positive (reported) Genitourinary: Yes: WNL Breast(s): Yes: WNL Musculoskeletal: Yes: WNL Extremities: Yes: Other (right AV fistula) Edema: No Peripheral Pulses WNL: Yes Peripheral Pulses: Left Radial: 2+, Right Radial: 2+, Left Doralis Pedis: 2+, Right Dorsalis Pedis: 2+, Left Femoral: 2+, Right Femoral: 2+ Integumentary: Yes: WNL Neurological: Yes: WNL, Alert, Oriented ...Motor Strength: WNL (gait not observed) Psychiatric: Yes: WNL Labs: CBC, BMP 11/03/19 06:37 11/03/19 06:37 Problem List - Problems (1) H/O ETOH abuse Assessment/Plan: hx of ETOH abuse no intake for 42 months as per pt Code(s): F10.11 - ALCOHOL ABUSE, IN REMISSION (2) GIB (gastrointestinal bleeding) Assessment/Plan: Hgb: 6.9 on admission, stool occult positive. s/p 3 unit prbc since admission H/H 8.04/01 on protonix, clears colonoscopy pending continue to hold anti-hypertensive meds, torsemide and asa in setting of acute bleed Code(s): K92.2 - GASTROINTESTINAL HEMORRHAGE, UNSPECIFIED Qualifiers: GI bleed type/associated pathology: unspecified gastrointestinal hemorrhage type Qualified Code(s): K92.2 - Gastrointestinal hemorrhage, unspecified (3) Symptomatic anemia Assessment/Plan: no c/o dizziness PT after colonscopy Code(s): D64.9 - ANEMIA, UNSPECIFIED (4) Uremia Assessment/Plan: Cr 2.1, BUN 106 most likely due to GI absorption of blood by GIB renal following and 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 no NS as patient has hx of volume overload iron studies pending given ddavp c/w flomax Code(s): N19 - UNSPECIFIED KIDNEY FAILURE (5) AV fistula Assessment/Plan: RUE noted Code(s): I77.0 - ARTERIOVENOUS FISTULA, ACQUIRED (6) ESRD (end stage renal disease) Assessment/Plan: appreciate renal consultation Code(s): N18.6 - END STAGE RENAL DISEASE (7) Prophylactic measure Assessment/Plan: FEN clear liquids until after coloscopy then resume renal diet montior electrolytes no additional fluids then needed DVT ambulatory Dispo maintain as inpt full code discharge planning Code(s): Z29.9 - ENCOUNTER FOR PROPHYLACTIC MEASURES, UNSPECIFIED Visit type - Emergency Visit Emergency Visit: Yes ED Registration Date: 11/01/19 Care time: The patient presented to the Emergency Department on the above date and was hospitalized for further evaluation of their emergent condition. - New Patient This patient is new to me today: Yes Date on this admission: 11/03/19 - Critical Care Critical Care patient: No - Discharge Referral Referred to [facility] Med P.C.: No
[2019-11-03 16:38] VITALS: BMI 33.4
[2019-11-03] MEDS ORDERED: LACTATED RINGERS SOLUTION 1,000 ML IV SCH (17:00)
[2019-11-03] MEDS ORDERED: DEXTROSE 5%-0.45% SALINE 1,000 ML IV SCH (17:27)
--- NOTE | 2019-11-03 18:47 | PN ---
Progress Note (short form) - Note Progress Note: Renal follow up for CKD No acute complaints denies any shortnes of breath or chest pain no abd pain for colonoscopy today Vital Signs Temperature 98.5 F 11/03/19 17:51 Pulse Rate 80 11/03/19 17:51 Respiratory Rate 18 11/03/19 17:51 Blood Pressure 137/55 L 11/03/19 17:51 O2 Sat by Pulse Oximetry (%) 98 11/03/19 17:51 Intake & Output 10/31/19 11/01/19 11/02/19 11/03/19 23:59 23:59 23:59 23:59 Intake Total 1520 738 Output Total 800 Balance 1520 -62 Weight 95.254 kg 94.12 kg 93.894 kg NAD RRR Dec BS, no rales or wheeze soft NT/ND, Obese no bladder distension no LE edema, clubbing or cyanosis CBC, BMP 11/03/19 06:37 11/03/19 06:37 Current Medications Albuterol Sulfate (Ventolin Hfa Inhaler -) 2 puff IH BID STACE[facility] Atorvastatin Calcium (Lipitor -) 20 mg PO HS STACEY Bacitracin (Bacitracin -) 1 applic TP BID STACEY Budesonide/Formoterol Fumarate (Symbicort 160/4.5mcg -) 2 puff IH BID [facility]ACE[facility] Lactated Ringer's (Lactated Ringers Solution) 1,000 mls @ 75 mls/hr IV ASDIR STACEY Dextrose/Sodium Chloride (D5-1/2ns -) 1,000 mls @ 42 mls/hr IV ASDIR STACEY Pantoprazole Sodium (Protonix Iv) 40 mg IVPUSH BID STACE[facility] Tamsulosin HCl (Flomax -) 0.4 mg PO DAILY@0830 [facility] 74 year old gentleman with history of CKD stage 4 (baseline Cr 2.4), insulin dependent diabetes, hypertension, BPH, cirrhosis, hx of GI bleed who presented with fall and generalized weakness and noted to have acute anemia. 1. acute anemia likely secondary to GI bleed 2. CKD stage 4 secondary to diabetic nephropathy 3. Azotemia (high BUN likely from upper GI bleed) 4. DM type 2 5. Hypertension 6. Cirrhosis history 7. BPH BUN/Cr improved. Suspect that high BUN secondary to GI bleed. 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 getting Endoscopy today would D/C IVF once pt is cleared to eat f/u iron studies continue flomax but can hold if BP is marginal or low Erwin Nascimento DO
[2019-11-03] MEDS: ATORVASTATIN CA 20 MG TABLET (FP) PO SCH (21:27)
[2019-11-04 07:08] LABS: BASO % 0.6 % (0-2.0); EOS % 3.4 % (0-4.5); HEMATOCRIT 22.1 % (35.4-49); HEMOGLOBIN 7.4 GM/dL (11.7-16.9); LYMPH % 22.7 % (8-40); MCHC 33.4 g/dl (32.0-35.9); MEAN CELL VOLUME 89.6 fl (80-96); MONO % 6.9 % (3.8-10.2); NEUT % 66.4 % (42.8-82.8); PLATELET COUNT 89 K/MM3 (134-434); RBC 2.47 M/mm3 (4.00-5.60); RDW 15.8 % (11.9-15.9); WHITE BLOOD COUNT 4.4 K/mm3 (4.0-10.0)
[2019-11-04 07:33] LABS: ALBUMIN 2.6 g/dl (3.4-5.0); BILIRUBIN,TOTAL 0.5 mg/dL (0.2-1); BLOOD UREA NITROGEN 60.7 mg/dL (7-18); CALCIUM 8.2 mg/dL (8.5-10.1); CREATININE 1.5 mg/dL (0.55-1.3); MAGNESIUM 2.1 mg/dL (1.8-2.4); POTASSIUM 3.9 mmol/L (3.5-5.1)
[2019-11-04] MEDS: TAMSULOSIN HCL 0.4 MG CAP PO SCH (09:24)
[2019-11-04] MEDS: BUDESONIDE/FORMETEROL FUMARATE 160/4.5 mcg INHALER IH SCH ×2 (09:24→21:11)
[2019-11-04] MEDS: PANTOPRAZOLE SODIUM 40 MG VIAL IVPUSH SCH ×2 (09:24→21:10)
[2019-11-04] MEDS: ALBUTEROL SO4 8 GM HFA INHALER IH SCH ×3 (09:25→21:20)
[2019-11-04] MEDS: BACITRACIN 15 GM TUBE TOPICAL OINTMENT TP SCH ×2 (09:25→21:11)
--- NOTE | 2019-11-04 12:23 | PN ---
Progress Note (short form) - Note Progress Note: s: no chest pain, palps, dizziness, dyspnea Current Medications Albuterol Sulfate (Ventolin Hfa Inhaler -) 2 puff IH BID [facility] Last Admin: 11/04/19 09:25 Dose: 2 puff Atorvastatin Calcium (Lipitor -) 20 mg PO HS [facility] Last Admin: 11/03/19 21:27 Dose: 20 mg Bacitracin (Bacitracin -) 1 applic TP BID [facility] Last Admin: 11/04/19 09:25 Dose: 1 applic Budesonide/Formoterol Fumarate (Symbicort 160/4.5mcg -) 2 puff IH BID [facility] Last Admin: 11/04/19 09:24 Dose: 2 puff Lactated Ringer's (Lactated Ringers Solution) 1,000 mls @ 75 mls/hr IV ASDIR STACEY Dextrose/Sodium Chloride (D5-1/2ns -) 1,000 mls @ 42 mls/hr IV ASDIR STACEY Pantoprazole Sodium (Protonix Iv) 40 mg IVPUSH BID [facility] Last Admin: 11/04/19 09:24 Dose: 40 mg Tamsulosin HCl (Flomax -) 0.4 mg PO DAILY@0830 [facility] Last Admin: 11/04/19 09:24 Dose: 0.4 mg Vital Signs Period Temp Pulse Resp BP Sys/Cabral Pulse Ox Last 24 Hr 97.3 F-98.8 F 68-82 12-18 112-142/48-66 96-98 Constitutional: Yes: No Distress Cardiovascular: Yes: Regular Rate and Rhythm Respiratory: Yes: CTA Bilaterally Gastrointestinal: Yes: Soft (NT) Edema: No Neurological: Yes: Alert, Oriented no jaundice, diaphoresis not agitated tele: sinus, PVCs Assessment/Plan a/p: 74 m hx cad s/p cabg 2004, hld, ckd, dm here with weakness. weakness, anemia: -severe anemia, hgb 5s -plan per pmd, GI -s/p foc/egd, ulcers noted cad, remote cabg: -stable, no signs acs -borderline trops with flat trend, nl ck index, not c/w acs -cont statin -holding asa 2/2 anemia. holding bb for now as well given severe anemia hld: -cont statin ckd: -cr near baseline
--- NOTE | 2019-11-04 12:26 | PN ---
Physical Exam: SUBJECTIVE: Patient seen and examined at the bedside at the bedside. OBJECTIVE: hmg low at 7.4, repeat cbc, but patient refusing further blood draws today egd 11/03/19: 3cm hiatal hernia, single ulcer measuring [id number], recommend protonix 40mg daily, d/c if hmg stable, repeat egd in 3 mos s/p 3 units of prbc Patient is a 74 year old male wt PMH of CKD, s/p RUE fistula placement (no HD) , DM, HTN, HLD, s/p stent who presents with weakness and being admitted for severe anemia and is now s/p 3 units of prbc and EGD. Period Temp Pulse Resp BP Sys/Cabral Pulse Ox Last 24 Hr 97.3 F-98.8 F 68-82 12-18 112-142/48-66 96-98 GENERAL: The patient is awake, alert, and fully oriented, in no acute distress. HEAD: Normal with no signs of trauma. EYES: PERRL, extraocular movements intact, sclera anicteric, conjunctiva clear. No ptosis. ENT: Ears normal, nares patent, oropharynx clear without exudates, moist mucous membranes. NECK: Trachea midline, full range of motion, supple. LUNGS: Breath sounds equal, clear to auscultation bilaterally HEART: Regular rate and rhythm, mild tachycardia ABDOMEN: Soft, nontender, nondistended, normoactive bowel sounds EXTREMITIES: no edema. rue av fistula placement PSYCH: Normal mood, normal affect. SKIN: skin tear right mid arm Laboratory Results - last 24 hr 11/03/19 11/03/19 11/04/19 12:49 20:40 05:50 WBC 4.4 RBC 2.47 L Hgb 7.4 L Hct 22.1 L MCV 89.6 MCH 30.0 MCHC 33.4 RDW 15.8 Plt Count 89 L MPV 10.0 Absolute Neuts (auto) 3.0 Neutrophils % 66.4 Lymphocytes % 22.7 Monocytes % 6.9 Eosinophils % 3.4 Basophils % 0.6 Nucleated RBC % 0 Sodium Potassium Chloride Carbon Dioxide Anion Gap BUN Creatinine Est GFR (CKD-EPI)AfAm Est GFR (CKD-EPI)NonAf POC Glucometer 136 256 Random Glucose Calcium Magnesium Total Bilirubin AST ALT Alkaline Phosphatase Creatine Kinase Creatine Kinase Index CK-MB (CK-2) Total Protein Albumin 11/04/19 11/04/19 11/04/19 05:50 06:11 11:11 WBC RBC Hgb Hct MCV MCH MCHC RDW Plt Count MPV Absolute Neuts (auto) Neutrophils % Lymphocytes % Monocytes % Eosinophils % Basophils % Nucleated RBC % Sodium 147 H Potassium 3.9 Chloride 119 H Carbon Dioxide 24 Anion Gap 4 L BUN 60.7 H Creatinine 1.5 H Est GFR (CKD-EPI)AfAm 52.40 Est GFR (CKD-EPI)NonAf 45.21 POC Glucometer 98 121 Random Glucose 95 Calcium 8.2 L Magnesium 2.1 Total Bilirubin 0.5 AST 26 ALT 21 Alkaline Phosphatase 57 Creatine Kinase 423 H Creatine Kinase Index 0.6 CK-MB (CK-2) 2.8 Total Protein 5.0 L Albumin 2.6 L Active Medications Generic Name Dose Route Start Last Admin Trade Name Freq PRN Reason Stop Dose Admin Albuterol Sulfate 2 puff 11/03/19 22:00 11/04/19 09:25 Ventolin Hfa Inhaler - IH 2 puff BID STACEY Administration Atorvastatin Calcium 20 mg 11/03/19 22:00 11/03/19 21:27 Lipitor - PO 20 mg HS STACEY Administration Bacitracin 1 applic 11/03/19 22:00 11/04/19 09:25 Bacitracin - TP 1 applic BID STACEY Administration Budesonide/Formoterol Fumarate 2 puff 11/03/19 22:00 11/04/19 09:24 Symbicort 160/4.5mcg - IH 2 puff BID STACEY Administration Lactated Ringer's 1,000 mls @ 75 mls/hr 11/03/19 17:00 Lactated Ringers Solution IV ASDIR STACEY Dextrose/Sodium Chloride 1,000 mls @ 42 mls/hr 11/03/19 17:27 D5-1/2ns - IV ASDIR STACEY Pantoprazole Sodium 40 mg 11/03/19 22:00 11/04/19 09:24 Protonix Iv IVPUSH 40 mg BID STACEY Administration Tamsulosin HCl 0.4 mg 11/04/19 08:30 11/04/19 09:24 Flomax - PO 0.4 mg DAILY@0830 STACEY Administration ASSESSMENT/PLAN: Problem List - Problems (1) Acute blood loss anemia Assessment/Plan: secondary to gi bleed transfused 3 units of prbc hmg low, pt refusing repeat cbc today, will repeat in a.m. Code(s): D62 - ACUTE POSTHEMORRHAGIC ANEMIA (2) Symptomatic anemia Assessment/Plan: mild dizziness pt when more stable Code(s): D64.9 - ANEMIA, UNSPECIFIED (3) GIB (gastrointestinal bleeding) Assessment/Plan: Hgb: 6.9 on admission, stool occult positive. given 3 unit prbc during hospital stay. on protonix, clears. 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 no NS as patient has hx of volume overload iron studies ordered given ddavp continue flomax Code(s): N19 - UNSPECIFIED KIDNEY FAILURE (5) AV fistula Code(s): I77.0 - ARTERIOVENOUS FISTULA, ACQUIRED (6) AV fistula stenosis Assessment/Plan: on left forearm, no HD started per renal Code(s): T82.858A - STENOSIS OF OTHER VASCULAR PROSTH DEV/GRFT, INIT (7) ESRD (end stage renal disease) Assessment/Plan: followed by renal ddp ordered Code(s): N18.6 - END STAGE RENAL DISEASE (8) Weakness Assessment/Plan: for Pt Code(s): R53.1 - WEAKNESS (9) H/O ETOH abuse Assessment/Plan: denies any etoh abuse, sober x 42 months per patient no signs of acute withdrawal. monitor Code(s): F10.11 - ALCOHOL ABUSE, IN REMISSION Visit type - Emergency Visit Emergency Visit: Yes ED Registration Date: 11/01/19 Care time: The patient presented to the Emergency Department on the above date and was hospitalized for further evaluation of their emergent condition. - New Patient This patient is new to me today: No - Critical Care Critical Care patient: No - Discharge Referral Referred to [facility] No
--- NOTE | 2019-11-04 14:33 | PN ---
Progress Note (short form) - Note Progress Note: RENAL coverage for Dr Nascimento Pt is awake and alert denies complaints Last Vital Signs Temp Pulse Resp BP Pulse Ox 98.1 F 73 18 142/55 L 96 11/04/19 08:57 11/04/19 08:57 11/04/19 09:00 11/04/19 08:57 11/04/19 09:00 lungs clear cvs s1s2 rr +SENAIT abd soft ext no edema neuro a+ox3 CBC, BMP 11/04/19 05:50 11/04/19 05:50 Current Medications Generic Name Dose Route Start Last Admin Trade Name Freq PRN Reason Stop Dose Admin Albuterol Sulfate 2 puff 11/03/19 22:00 11/04/19 09:25 Ventolin Hfa Inhaler - IH 2 puff BID STACEY Administration Atorvastatin Calcium 20 mg 11/03/19 22:00 11/03/19 21:27 Lipitor - PO 20 mg HS STACEY Administration Bacitracin 1 applic 11/03/19 22:00 11/04/19 09:25 Bacitracin - TP 1 applic BID STACEY Administration Budesonide/Formoterol Fumarate 2 puff 11/03/19 22:00 11/04/19 09:24 Symbicort 160/4.5mcg - IH 2 puff BID STACEY Administration Lactated Ringer's 1,000 mls @ 75 mls/hr 11/03/19 17:00 Lactated Ringers Solution IV ASDIR STACEY Dextrose/Sodium Chloride 1,000 mls @ 42 mls/hr 11/03/19 17:27 D5-1/2ns - IV ASDIR STACEY Pantoprazole Sodium 40 mg 11/03/19 22:00 11/04/19 09:24 Protonix Iv IVPUSH 40 mg BID STACEY Administration Tamsulosin HCl 0.4 mg 11/04/19 08:30 11/04/19 09:24 Flomax - PO 0.4 mg DAILY@0830 STACEY Administration 74 year old gentleman with history of CKD stage 4 (baseline Cr 2.4), insulin dependent diabetes, hypertension, BPH, cirrhosis, hx of GI bleed who presented with fall and generalized weakness and noted to have acute anemia. 1. acute anemia likely secondary to GI bleed 2. CKD stage 4 secondary to diabetic nephropathy 3. Azotemia (high BUN likely from upper GI bleed) 4. DM type 2 5. Hypertension 6. Cirrhosis history 7. BPH 8. pt states he was found to have a tumor on egd, but i cant confirm this continue flomax but can hold if BP is marginal or low monitor hemoglobin no need to hd has a left forearm fistula which should have angioplasty again would repeat echo given murmur MV
[2019-11-04] MEDS: ATORVASTATIN CA 20 MG TABLET (FP) PO SCH (21:11)
[2019-11-05 06:22] LABS: BASO % 0.6 % (0-2.0); HEMATOCRIT 23.7 % (35.4-49); HEMOGLOBIN 7.9 GM/dL (11.7-16.9); MCHC 33.4 g/dl (32.0-35.9); MEAN CELL VOLUME 89.9 fl (80-96); MEAN PLT VOLUME 9.9 fl (7.5-11.1); MONO % 8.9 % (3.8-10.2); NEUT % 64.5 % (42.8-82.8); PLATELET COUNT 98 K/MM3 (134-434); RBC 2.64 M/mm3 (4.00-5.60); RDW 15.8 % (11.9-15.9); WHITE BLOOD COUNT 4.3 K/mm3 (4.0-10.0)
[2019-11-05 06:58] LABS: ALBUMIN 2.8 g/dl (3.4-5.0); BILIRUBIN,TOTAL 0.5 mg/dL (0.2-1); BLOOD UREA NITROGEN 34.4 mg/dL (7-18); CALCIUM 8.7 mg/dL (8.5-10.1); CREATININE 1.3 mg/dL (0.55-1.3); MAGNESIUM 1.9 mg/dL (1.8-2.4); POTASSIUM 3.9 mmol/L (3.5-5.1); TOT PROT 5.4 g/dl (6.4-8.2)
[2019-11-05] MEDS: PANTOPRAZOLE SODIUM 40 MG VIAL IVPUSH SCH ×2 (10:16→21:53)
[2019-11-05] MEDS: TAMSULOSIN HCL 0.4 MG CAP PO SCH (10:16)
[2019-11-05] MEDS: BACITRACIN 15 GM TUBE TOPICAL OINTMENT TP SCH ×2 (10:16→21:54)
[2019-11-05] MEDS: BUDESONIDE/FORMETEROL FUMARATE 160/4.5 mcg INHALER IH SCH ×3 (10:17→22:01)
[2019-11-05] MEDS: ALBUTEROL SO4 8 GM HFA INHALER IH SCH ×2 (10:18→22:01)
--- NOTE | 2019-11-05 11:45 | PN ---
Progress Note (short form) - Note Progress Note: s: no chest pain, palps, dizziness, dyspnea Current Medications Albuterol Sulfate (Ventolin Hfa Inhaler -) 2 puff IH BID [facility] Last Admin: 11/05/19 10:18 Dose: Not Given Atorvastatin Calcium (Lipitor -) 20 mg PO HS [facility] Last Admin: 11/04/19 21:11 Dose: 20 mg Bacitracin (Bacitracin -) 1 applic TP BID [facility] Last Admin: 11/05/19 10:16 Dose: 1 applic Budesonide/Formoterol Fumarate (Symbicort 160/4.5mcg -) 2 puff IH BID [facility] Last Admin: 11/05/19 10:17 Dose: 2 puff Lactated Ringer's (Lactated Ringers Solution) 1,000 mls @ 75 mls/hr IV ASDIR STACEY Dextrose/Sodium Chloride (D5-1/2ns -) 1,000 mls @ 42 mls/hr IV ASDIR STACEY Pantoprazole Sodium (Protonix Iv) 40 mg IVPUSH BID [facility] Last Admin: 11/05/19 10:16 Dose: 40 mg Tamsulosin HCl (Flomax -) 0.4 mg PO DAILY@0830 [facility] Last Admin: 11/05/19 10:16 Dose: 0.4 mg Vital Signs Period Temp Pulse Resp BP Sys/Cabral Pulse Ox Last 24 Hr 98.0 F-98.6 F 76-94 18-18 116-146/49-66 96-96 Constitutional: Yes: No Distress Cardiovascular: Yes: Regular Rate and Rhythm Respiratory: Yes: CTA Bilaterally Gastrointestinal: Yes: Soft (NT) Edema: No Neurological: Yes: Alert, Oriented no jaundice, diaphoresis not agitated tele: sinus, PVCs Assessment/Plan a/p: 74 m hx cad s/p cabg 2004, hld, ckd, dm here with weakness. weakness, anemia: -severe anemia, hgb 5s -plan per pmd, GI -s/p foc/egd, ulcers noted cad, remote cabg: -stable, no signs acs -borderline trops with flat trend, nl ck index, not c/w acs -cont statin -holding asa 2/2 anemia HTN - restart home bystolic hld: -cont statin ckd: -cr near baseline
--- NOTE | 2019-11-05 13:22 | PN ---
Physical Exam: SUBJECTIVE: Patient seen and examined at the bedside. OBJECTIVE: hmg low at 7.9, repeat cbc in a.m., may consider another unit of prbc to maintain hmg >8 egd 11/03/19: 3cm hiatal hernia, single ulcer measuring [id number], recommend protonix 40mg daily, d/c if hmg stable, repeat egd in 3 mos s/p 3 units of prbc Patient is a 74 year old male wt PMH of CKD, s/p left forearm fistula placement (no HD), DM, HTN, HLD, s/p stent who presents with weakness and being admitted for severe anemia and is now s/p 3 units of prbc and EGD. Vital Signs Period Temp Pulse Resp BP Sys/Cabral Pulse Ox Last 24 Hr 98.0 F-98.6 F 76-94 18-18 116-146/49-66 96-96 GENERAL: The patient is awake, alert, and fully oriented, in no acute distress. HEAD: Normal with no signs of trauma. EYES: PERRL, extraocular movements intact, sclera anicteric, conjunctiva clear. No ptosis. ENT: Ears normal, nares patent, oropharynx clear without exudates, moist mucous membranes. NECK: Trachea midline, full range of motion, supple. LUNGS: Breath sounds equal, clear to auscultation bilaterally HEART: Regular rate and rhythm, mild tachycardia ABDOMEN: Soft, nontender, nondistended, normoactive bowel sounds EXTREMITIES: no edema. rue av fistula placement PSYCH: Normal mood, normal affect. SKIN: skin tear right mid arm Laboratory Results - last 24 hr 11/01/19 11/04/19 11/04/19 20:30 16:53 21:58 WBC RBC Hgb Hct MCV MCH MCHC RDW Plt Count MPV Absolute Neuts (auto) Neutrophils % Lymphocytes % Monocytes % Eosinophils % Basophils % Nucleated RBC % Sodium Potassium Chloride Carbon Dioxide Anion Gap BUN Creatinine Est GFR (CKD-EPI)AfAm Est GFR (CKD-EPI)NonAf POC Glucometer 173 154 Random Glucose Calcium Magnesium Total Bilirubin AST ALT Alkaline Phosphatase Total Protein Albumin Blood Type B POSITIVE Antibody Screen Positive Antibody Identification E Crossmatch See Detail 12/29/19 12/29/19 12/29/19 05:16 05:25 05:25 WBC 4.3 RBC 2.64 L Hgb 7.9 L Hct 23.7 L MCV 89.9 MCH 30.0 MCHC 33.4 RDW 15.8 Plt Count 98 L MPV 9.9 Absolute Neuts (auto) 2.8 Neutrophils % 64.5 Lymphocytes % 23.0 Monocytes % 8.9 Eosinophils % 3.0 Basophils % 0.6 Nucleated RBC % 0 Sodium 146 H Potassium 3.9 Chloride 118 H Carbon Dioxide 23 Anion Gap 6 L BUN 34.4 H Creatinine 1.3 Est GFR (CKD-EPI)AfAm 62.30 Est GFR (CKD-EPI)NonAf 53.75 POC Glucometer 117 Random Glucose 114 H Calcium 8.7 Magnesium 1.9 Total Bilirubin 0.5 AST 25 ALT 23 Alkaline Phosphatase 65 Total Protein 5.4 L Albumin 2.8 L Blood Type Antibody Screen Antibody Identification Crossmatch Active Medications Generic Name Dose Route Start Last Admin Trade Name Freq PRN Reason Stop Dose Admin Albuterol Sulfate 2 puff 11/03/19 22:00 11/05/19 10:18 Ventolin Hfa Inhaler - IH Not Given BID STACEY Atorvastatin Calcium 20 mg 11/03/19 22:00 11/04/19 21:11 Lipitor - PO 20 mg HS STACEY Administration Bacitracin 1 applic 11/03/19 22:00 11/05/19 10:16 Bacitracin - TP 1 applic BID STACEY Administration Budesonide/Formoterol Fumarate 2 puff 11/03/19 22:00 11/05/19 10:17 Symbicort 160/4.5mcg - IH 2 puff BID STACEY Administration Lactated Ringer's 1,000 mls @ 75 mls/hr 11/03/19 17:00 Lactated Ringers Solution IV ASDIR STACEY Dextrose/Sodium Chloride 1,000 mls @ 42 mls/hr 11/03/19 17:27 D5-1/2ns - IV ASDIR STACEY Nebivolol 5 mg 11/05/19 11:45 Bystolic - PO DAILY STACEY Pantoprazole Sodium 40 mg 11/03/19 22:00 11/05/19 10:16 Protonix Iv IVPUSH 40 mg BID STACEY Administration Tamsulosin HCl 0.4 mg 11/04/19 08:30 11/05/19 10:16 Flomax - PO 0.4 mg DAILY@0830 STACEY Administration ASSESSMENT/PLAN: Problem List - Problems (1) Acute blood loss anemia Assessment/Plan: secondary to gi bleed transfused 3 units of prbc hmg low, will repeat in a.m. and if still <8, will transfuse Code(s): D62 - ACUTE POSTHEMORRHAGIC ANEMIA (2) Symptomatic anemia Assessment/Plan: mild dizziness pt when more stable Code(s): D64.9 - ANEMIA, UNSPECIFIED (3) GIB (gastrointestinal bleeding) Assessment/Plan: Hgb: 6.9 on admission, stool occult positive. given 3 unit prbc during hospital stay. on protonix, clears. 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 NS as patient has hx of volume overload iron studies ordered given ddavp continue flomax Code(s): N19 - UNSPECIFIED KIDNEY FAILURE (5) AV fistula Assessment/Plan: left forearm, +bruit, thrill+ Code(s): I77.0 - ARTERIOVENOUS FISTULA, ACQUIRED (6) AV fistula stenosis Assessment/Plan: on left forearm, no HD started per renal Code(s): T82.858A - STENOSIS OF OTHER VASCULAR PROSTH DEV/GRFT, INIT (7) ESRD (end stage renal disease) Assessment/Plan: followed by renal ddp ordered Code(s): N18.6 - END STAGE RENAL DISEASE (8) Weakness Assessment/Plan: for Pt Code(s): R53.1 - WEAKNESS (9) H/O ETOH abuse Assessment/Plan: denies any etoh abuse, sober x 42 months per patient no signs of acute withdrawal. monitor Code(s): F10.11 - ALCOHOL ABUSE, IN REMISSION Visit type - Emergency Visit Emergency Visit: Yes ED Registration Date: 11/01/19 Care time: The patient presented to the Emergency Department on the above date and was hospitalized for further evaluation of their emergent condition. - New Patient This patient is new to me today: No - Critical Care Critical Care patient: No - Discharge Referral Referred to [facility] No
[2019-11-05] MEDS: NEBIVOLOL 5 MG TABLET (FP) PO SCH (13:55)
[2019-11-05] MEDS: ATORVASTATIN CA 20 MG TABLET (FP) PO SCH (21:53)
[2019-11-06] MEDS: NEBIVOLOL 5 MG TABLET (FP) PO SCH (09:31)
[2019-11-06] MEDS: TAMSULOSIN HCL 0.4 MG CAP PO SCH (09:31)
[2019-11-06] MEDS: BACITRACIN 15 GM TUBE TOPICAL OINTMENT TP SCH ×2 (09:32→22:15)
[2019-11-06] MEDS: PANTOPRAZOLE SODIUM 40 MG VIAL IVPUSH SCH (09:32)
[2019-11-06] MEDS: BUDESONIDE/FORMETEROL FUMARATE 160/4.5 mcg INHALER IH SCH ×2 (09:32→22:15)
[2019-11-06] MEDS: ALBUTEROL SO4 8 GM HFA INHALER IH SCH ×2 (09:33→22:15)
--- NOTE | 2019-11-06 10:29 | PN ---
Physical Exam: SUBJECTIVE: Patient seen and examined at the bedside. did not participate with physical therapy due to dizziness. OBJECTIVE: egd 11/03/19: 3cm hiatal hernia, single ulcer measuring [id number], recommend protonix 40mg daily, d/c if hmg stable, repeat egd in 3 mos s/p 3 units of prbc Patient is a 74 year old male wtih PMH of CKD, s/p left forearm fistula placement (no HD), DM, HTN, HLD, s/p stent who presents with weakness and being admitted for severe anemia and is now s/p 3 units of prbc and EGD. repeat cbc now. Vital Signs Period Temp Pulse Resp BP Sys/Cabral Pulse Ox Last 24 Hr 97.8 F-99 F 64-79 20-20 140-159/57-78 96 GENERAL: The patient is awake, alert, and fully oriented, in no acute distress. HEAD: Normal with no signs of trauma. EYES: PERRL, extraocular movements intact, sclera anicteric, conjunctiva clear. No ptosis. ENT: Ears normal, nares patent, oropharynx clear without exudates, moist mucous membranes. NECK: Trachea midline, full range of motion, supple. LUNGS: Breath sounds equal, clear to auscultation bilaterally HEART: Regular rate and rhythm, mild tachycardia ABDOMEN: Soft, nontender, nondistended, normoactive bowel sounds EXTREMITIES: no edema. left forearm av fistula PSYCH: Normal mood, normal affect. SKIN: skin tear right mid arm Laboratory Results - last 24 hr 11/01/19 11/06/19 11/06/19 20:30 00:14 06:56 POC Glucometer 132 113 Blood Type B POSITIVE Antibody Screen Positive Antibody Identification E Crossmatch See Detail Active Medications Generic Name Dose Route Start Last Admin Trade Name Freq PRN Reason Stop Dose Admin Albuterol Sulfate 2 puff 11/03/19 22:00 11/06/19 09:33 Ventolin Hfa Inhaler - IH Not Given BID STACEY Atorvastatin Calcium 20 mg 11/03/19 22:00 11/05/19 21:53 Lipitor - PO 20 mg HS STACEY Administration Bacitracin 1 applic 11/03/19 22:00 11/06/19 09:32 Bacitracin - TP 1 applic BID STACEY Administration Budesonide/Formoterol Fumarate 2 puff 11/03/19 22:00 11/06/19 09:32 Symbicort 160/4.5mcg - IH 2 puff BID STACEY Administration Nebivolol 5 mg 11/05/19 11:45 11/06/19 09:31 Bystolic - PO 5 mg DAILY STACEY Administration Pantoprazole Sodium 40 mg 11/03/19 22:00 11/06/19 09:32 Protonix Iv IVPUSH 40 mg BID STACEY Administration Tamsulosin HCl 0.4 mg 11/04/19 08:30 11/06/19 09:31 Flomax - PO 0.4 mg DAILY@0830 STACEY Administration ASSESSMENT/PLAN: Problem List - Problems (1) Acute blood loss anemia Assessment/Plan: secondary to gi bleed transfused 3 units of prbc, still feels dizzy today repeating cbc and if still <8, will transfuse Code(s): D62 - ACUTE POSTHEMORRHAGIC ANEMIA (2) Symptomatic anemia Assessment/Plan: mild dizziness pt when more stable Code(s): D64.9 - ANEMIA, UNSPECIFIED (3) GIB (gastrointestinal bleeding) Assessment/Plan: Hgb: 6.9 on admission, stool occult positive. given 3 unit prbc during hospital stay. on protonix, clears. 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 NS as patient has hx of volume overload iron studies ordered given ddavp continue flomax Code(s): N19 - UNSPECIFIED KIDNEY FAILURE (5) AV fistula Assessment/Plan: left forearm, +bruit, thrill+ Code(s): I77.0 - ARTERIOVENOUS FISTULA, ACQUIRED (6) AV fistula stenosis Assessment/Plan: on left forearm, no HD started per renal Code(s): T82.858A - STENOSIS OF OTHER VASCULAR PROSTH DEV/GRFT, INIT (7) ESRD (end stage renal disease) Assessment/Plan: followed by renal ddp ordered Code(s): N18.6 - END STAGE RENAL DISEASE (8) Weakness Assessment/Plan: for Pt Code(s): R53.1 - WEAKNESS (9) H/O ETOH abuse Assessment/Plan: denies any etoh abuse, sober x 42 months per patient no signs of acute withdrawal. monitor Code(s): F10.11 - ALCOHOL ABUSE, IN REMISSION Visit type - Emergency Visit Emergency Visit: Yes ED Registration Date: 11/01/19 Care time: The patient presented to the Emergency Department on the above date and was hospitalized for further evaluation of their emergent condition. - New Patient This patient is new to me today: No - Critical Care Critical Care patient: No - Discharge Referral Referred to [facility] No
[2019-11-06 11:19] LABS: BASO % 0.6 % (0-2.0); EOS % 3.3 % (0-4.5); HEMATOCRIT 27.5 % (35.4-49); LYMPH % 20.4 % (8-40); MCH 29.7 pg (25.7-33.7); MCHC 32.6 g/dl (32.0-35.9); MEAN CELL VOLUME 91.1 fl (80-96); MONO % 7.9 % (3.8-10.2); NEUT % 67.8 % (42.8-82.8); PLATELET COUNT 105 K/MM3 (134-434); RBC 3.02 M/mm3 (4.00-5.60); RDW 16.3 % (11.9-15.9); WHITE BLOOD COUNT 6.1 K/mm3 (4.0-10.0)
[2019-11-06 11:36] LABS: BILIRUBIN,TOTAL 0.8 mg/dL (0.2-1); CALCIUM 8.8 mg/dL (8.5-10.1); CREATININE 1.3 mg/dL (0.55-1.3); MAGNESIUM 1.9 mg/dL (1.8-2.4); POTASSIUM 4.1 mmol/L (3.5-5.1); TOT PROT 5.9 g/dl (6.4-8.2)
--- NOTE | 2019-11-06 12:32 | PN.GI ---
GI Progress Note Subjective: patient with nausea and vomitng yesterdy, no rectal bleeding - Objective Vital Signs: Vital Signs Temperature 99 F 11/06/19 05:37 Pulse Rate 68 11/06/19 05:37 Respiratory Rate 20 11/06/19 05:37 Blood Pressure 151/61 11/06/19 05:37 O2 Sat by Pulse Oximetry (%) 96 11/05/19 20:22 Constitutional: Obese Eyes: Yes: Conjunctiva Clear HENT: Yes: Atraumatic Neck: Yes: Supple Cardiovascular: Yes: Regular Rate and Rhythm Respiratory: Yes: CTA Bilaterally ...Palpate: Yes: Soft. No: Firm/Rigid, Guarding, Hepatomegaly, Mass, Pulsatile Mass, Splenomegaly Labs: CBC, BMP 11/06/19 10:45 11/06/19 10:45 Problem List - Problems (1) GIB (gastrointestinal bleeding) Code(s): K92.2 - GASTROINTESTINAL HEMORRHAGE, UNSPECIFIED Qualifiers: GI bleed type/associated pathology: unspecified gastrointestinal hemorrhage type Qualified Code(s): K92.2 - Gastrointestinal hemorrhage, unspecified (2) Gastric ulcer Assessment/Plan: r/o secondary to NSAID use R> Pantoprazole 40mg bid Reglan 5mg 30 mn ac Code(s): K25.9 - GASTRIC ULCER, UNSP ACUTE OR CHRONIC, W/O HEMOR OR PERF
--- NOTE | 2019-11-06 13:17 | PN ---
Progress Note (short form) - Note Progress Note: s: no chest pain, palps, dizziness, dyspnea Current Medications Albuterol Sulfate (Ventolin Hfa Inhaler -) 2 puff IH BID [facility] Last Admin: 11/06/19 09:33 Dose: Not Given Atorvastatin Calcium (Lipitor -) 20 mg PO HS [facility] Last Admin: 11/05/19 21:53 Dose: 20 mg Bacitracin (Bacitracin -) 1 applic TP BID [facility] Last Admin: 11/06/19 09:32 Dose: 1 applic Budesonide/Formoterol Fumarate (Symbicort 160/4.5mcg -) 2 puff IH BID [facility] Last Admin: 11/06/19 09:32 Dose: 2 puff Metoclopramide HCl (Reglan -) 5 mg PO TIDAC STACEY Nebivolol (Bystolic -) 5 mg PO DAILY [facility] Last Admin: 11/06/19 09:31 Dose: 5 mg Pantoprazole Sodium (Protonix -) 40 mg PO BID [facility] Tamsulosin HCl (Flomax -) 0.4 mg PO DAILY@0830 [facility] Last Admin: 11/06/19 09:31 Dose: 0.4 mg Vital Signs Period Temp Pulse Resp BP Sys/Cabral Pulse Ox Last 24 Hr 97.8 F-99 F 64-79 20-20 140-173/57-82 96-97 Constitutional: Yes: No Distress Cardiovascular: Yes: Regular Rate and Rhythm Respiratory: Yes: CTA Bilaterally Gastrointestinal: Yes: Soft (NT) Edema: No Neurological: Yes: Alert, Oriented no jaundice, diaphoresis not agitated tele: sinus, PVCs Assessment/Plan a/p: 74 m hx cad s/p cabg 2004, hld, ckd, dm here with weakness. weakness, anemia: -severe anemia, hgb 5s -plan per pmd, GI -s/p foc/egd, ulcers noted cad, remote cabg: -stable, no signs acs -borderline trops with flat trend, nl ck index, not c/w acs -cont statin -holding asa 2/2 anemia HTN - home bystolic restarted, monitor bp hld: -cont statin ckd: -cr near baseline
--- NOTE | 2019-11-06 14:40 | PN ---
Progress Note (short form) - Note Progress Note: Renal follow up for CKD Seen and examined at the bedside awake and alert offers no acute complaints no chest pain or shortness of breath making urine oral intake improving Vital Signs Temperature 98.9 F 11/06/19 09:00 Pulse Rate 66 11/06/19 09:00 Respiratory Rate 20 11/06/19 09:00 Blood Pressure 173/82 H 11/06/19 09:00 O2 Sat by Pulse Oximetry (%) 97 11/06/19 09:00 Intake & Output 11/03/19 11/04/19 11/05/19 11/06/19 23:59 23:59 23:59 23:59 Intake Total 978 864 200 100 Output Total 8839 941 5965 450 Balance -572 114 -1050 -350 Weight 93.894 kg NAD RRR Dec BS, no rales or wheeze soft NT/ND, Obese no bladder distension no LE edema, clubbing or cyanosis CBC, BMP 11/06/19 10:45 11/06/19 10:45 Current Medications Albuterol Sulfate (Ventolin Hfa Inhaler -) 2 puff IH BID [facility] Last Admin: 11/06/19 09:33 Dose: Not Given Atorvastatin Calcium (Lipitor -) 20 mg PO HS [facility] Last Admin: 11/05/19 21:53 Dose: 20 mg Bacitracin (Bacitracin -) 1 applic TP BID [facility] Last Admin: 11/06/19 09:32 Dose: 1 applic Budesonide/Formoterol Fumarate (Symbicort 160/4.5mcg -) 2 puff IH BID [facility] Last Admin: 11/06/19 09:32 Dose: 2 puff Metoclopramide HCl (Reglan -) 5 mg PO TIDAC [facility] Nebivolol (Bystolic -) 5 mg PO DAILY [facility] Last Admin: 11/06/19 09:31 Dose: 5 mg Pantoprazole Sodium (Protonix -) 40 mg PO BID [facility] Tamsulosin HCl (Flomax -) 0.4 mg PO DAILY@0830 [facility] Last Admin: 11/06/19 09:31 Dose: 0.4 mg 74 year old gentleman with history of CKD stage 4 (baseline Cr 2.4), insulin dependent diabetes, hypertension, BPH, cirrhosis, hx of GI bleed who presented with fall and generalized weakness and noted to have acute anemia. 1. acute anemia likely secondary to GI bleed 2. CKD stage 4 secondary to diabetic nephropathy 3. Azotemia (high BUN likely from upper GI bleed) 4. DM type 2 5. Hypertension 6. Cirrhosis history 7. BPH Renal function signifincatly improved, Cr lower then outpatient levels volume status appears euvolemic at prsent, currently off Torsemide. Upon dishcarge pt should resume lower dose torsemide (40mg Daily) will need close monitoring of renal function as an outpatient Trend H/H, Hgb stable EGD showed gastic ulcer. On PPI. Erwin Nascimento DO
[2019-11-06] MEDS: METOCLOPRAMIDE HCL 10 MG TABLET (FP) PO SCH (18:30)
[2019-11-06] MEDS: ATORVASTATIN CA 20 MG TABLET (FP) PO SCH (22:14)
[2019-11-06] MEDS: PANTOPRAZOLE 40 MG TABLET (FP) PO SCH (22:14)
[2019-11-07 06:32] LABS: BASO % 0.6 % (0-2.0); EOS % 3.3 % (0-4.5); HEMATOCRIT 26.4 % (35.4-49); HEMOGLOBIN 8.9 GM/dL (11.7-16.9); LYMPH % 18.4 % (8-40); MCH 30.1 pg (25.7-33.7); MCHC 33.7 g/dl (32.0-35.9); MEAN CELL VOLUME 89.3 fl (80-96); MONO % 7.9 % (3.8-10.2); NEUT % 69.8 % (42.8-82.8); PLATELET COUNT 99 K/MM3 (134-434); RBC 2.95 M/mm3 (4.00-5.60); RDW 15.8 % (11.9-15.9); WHITE BLOOD COUNT 6.1 K/mm3 (4.0-10.0)
[2019-11-07 06:47] LABS: ALBUMIN 2.8 g/dl (3.4-5.0); BILIRUBIN,TOTAL 0.7 mg/dL (0.2-1); BLOOD UREA NITROGEN 18.3 mg/dL (7-18); CALCIUM 8.7 mg/dL (8.5-10.1); CREATININE 1.2 mg/dL (0.55-1.3); POTASSIUM 4.3 mmol/L (3.5-5.1); TOT PROT 5.7 g/dl (6.4-8.2)
[2019-11-07] MEDS: METOCLOPRAMIDE HCL 10 MG TABLET (FP) PO SCH ×3 (06:51→16:26)
[2019-11-07] MEDS: NEBIVOLOL 5 MG TABLET (FP) PO SCH (09:02)
[2019-11-07] MEDS: TAMSULOSIN HCL 0.4 MG CAP PO SCH (09:02)
[2019-11-07] MEDS: BACITRACIN 15 GM TUBE TOPICAL OINTMENT TP SCH ×2 (09:02→21:11)
[2019-11-07] MEDS: PANTOPRAZOLE 40 MG TABLET (FP) PO SCH ×2 (09:02→21:12)
[2019-11-07] MEDS: BUDESONIDE/FORMETEROL FUMARATE 160/4.5 mcg INHALER IH SCH ×2 (09:03→21:12)
[2019-11-07] MEDS: ALBUTEROL SO4 8 GM HFA INHALER IH SCH ×2 (09:04→21:12)
--- NOTE | 2019-11-07 11:02 | PN ---
Progress Note (short form) - Note Progress Note: s: no chest pain, palps, dizziness, dyspnea Current Medications Generic Name Dose Route Start Last Admin Trade Name Gio PRN Reason Stop Dose Admin Albuterol Sulfate 2 puff 11/03/19 22:00 11/07/19 09:04 Ventolin Hfa Inhaler - IH Not Given BID [facility] Atorvastatin Calcium 20 mg 11/03/19 22:00 11/06/19 22:14 Lipitor - PO 20 mg HS [facility] Administration Bacitracin 1 applic 11/03/19 22:00 11/07/19 09:02 Bacitracin - TP 1 applic BID [facility] Administration Budesonide/Formoterol Fumarate 2 puff 11/03/19 22:00 11/07/19 09:03 Symbicort 160/4.5mcg - IH Not Given BID [facility] Metoclopramide HCl 5 mg 11/06/19 16:30 11/07/19 06:51 Reglan - PO 5 mg TIDAC [facility] Administration Nebivolol 5 mg 11/05/19 11:45 11/07/19 09:02 Bystolic - PO 5 mg DAILY [facility] Administration Pantoprazole Sodium 40 mg 11/06/19 22:00 11/07/19 09:02 Protonix - PO 40 mg BID [facility] Administration Tamsulosin HCl 0.4 mg 11/04/19 08:30 11/07/19 09:02 Flomax - PO 0.4 mg DAILY@0830 [facility] Administration Vital Signs Period Temp Pulse Resp BP Sys/Cabral Pulse Ox Last 24 Hr 97.6 F-98.1 F 61-73 18-20 106-158/48-64 99-99 Constitutional: Yes: No Distress Cardiovascular: Yes: Regular Rate and Rhythm Respiratory: Yes: CTA Bilaterally Gastrointestinal: Yes: Soft (NT) Edema: No Neurological: Yes: Alert, Oriented no jaundice, diaphoresis not agitated CBC, BMP 11/07/19 05:40 11/07/19 05:40 tele: sinus a/p: 74 m hx cad s/p cabg 2004, hld, ckd, dm here with weakness. weakness, anemia: -severe anemia, hgb 5s -plan per pmd, GI -s/p foc/egd, ulcers noted cad, remote cabg: -stable, no signs acs -borderline trops with flat trend, nl ck index, not c/w acs -cont statin -holding asa 2/2 anemia HTN - home bystolic restarted, monitor bp hld: -cont statin ckd: -cr near baseline
--- NOTE | 2019-11-07 14:13 | PN ---
Physical Exam: SUBJECTIVE: Patient seen and examined at the bedside. feels dizzy when standing. denies frequent falls at home. OBJECTIVE: egd 11/03/19: 3cm hiatal hernia, single ulcer measuring [id number], recommend protonix 40mg daily, d/c if hmg stable, repeat egd in 3 mos s/p 3 units of prbc Patient is a 74 year old male wt PMH of CKD, s/p left forearm fistula placement (no HD), DM, HTN, HLD, s/p stent who presents with weakness and being admitted for severe anemia and is now s/p 3 units of prbc and EGD. + orthostatic Vital Signs Period Temp Pulse Resp BP Sys/Cabral Pulse Ox Last 24 Hr 97.6 F-98.1 F 61-77 18-20 86-158/48-64 99-99 GENERAL: The patient is awake, alert, and fully oriented, in no acute distress. HEAD: Normal with no signs of trauma. EYES: PERRL, extraocular movements intact, sclera anicteric, conjunctiva clear. No ptosis. ENT: Ears normal, nares patent, oropharynx clear without exudates, moist mucous membranes. NECK: Trachea midline, full range of motion, supple. LUNGS: Breath sounds equal, clear to auscultation bilaterally HEART: Regular rate and rhythm, mild tachycardia ABDOMEN: Soft, nontender, nondistended, normoactive bowel sounds EXTREMITIES: no edema. left forearm av fistula PSYCH: Normal mood, normal affect. SKIN: skin tear right mid arm Laboratory Results - last 24 hr 11/07/19 11/07/19 05:40 05:40 WBC 6.1 RBC 2.95 L Hgb 8.9 L Hct 26.4 L MCV 89.3 MCH 30.1 MCHC 33.7 RDW 15.8 Plt Count 99 L MPV 9.0 Absolute Neuts (auto) 4.2 Neutrophils % 69.8 Lymphocytes % 18.4 Monocytes % 7.9 Eosinophils % 3.3 Basophils % 0.6 Nucleated RBC % 0 Sodium 142 Potassium 4.3 Chloride 114 H Carbon Dioxide 23 Anion Gap 5 L BUN 18.3 H Creatinine 1.2 Est GFR (CKD-EPI)AfAm 68.63 Est GFR (CKD-EPI)NonAf 59.21 Random Glucose 113 H Calcium 8.7 Total Bilirubin 0.7 AST 17 ALT 22 Alkaline Phosphatase 68 Total Protein 5.7 L Albumin 2.8 L Active Medications Generic Name Dose Route Start Last Admin Trade Name Gio PRN Reason Stop Dose Admin Albuterol Sulfate 2 puff 11/03/19 22:00 11/07/19 09:04 Ventolin Hfa Inhaler - IH Not Given BID [facility] Atorvastatin Calcium 20 mg 11/03/19 22:00 11/06/19 22:14 Lipitor - PO 20 mg HS [facility] Administration Bacitracin 1 applic 11/03/19 22:00 11/07/19 09:02 Bacitracin - TP 1 applic BID [facility] Administration Budesonide/Formoterol Fumarate 2 puff 11/03/19 22:00 11/07/19 09:03 Symbicort 160/4.5mcg - IH Not Given BID [facility] Metoclopramide HCl 5 mg 11/06/19 16:30 11/07/19 11:53 Reglan - PO 5 mg TIDAC [facility] Administration Nebivolol 5 mg 11/05/19 11:45 11/07/19 09:02 Bystolic - PO 5 mg DAILY [facility] Administration Pantoprazole Sodium 40 mg 11/06/19 22:00 11/07/19 09:02 Protonix - PO 40 mg BID [facility] Administration Tamsulosin HCl 0.4 mg 11/04/19 08:30 11/07/19 09:02 Flomax - PO 0.4 mg DAILY@0830 [facility] Administration ASSESSMENT/PLAN: Problem List - Problems (1) Acute blood loss anemia Assessment/Plan: secondary to gi bleed, hmg/hct more stable today s/p 3 units of prbc Code(s): D62 - ACUTE POSTHEMORRHAGIC ANEMIA (2) Symptomatic anemia Assessment/Plan: mild dizziness but also noted to be orthostatic today fall precautions Code(s): D64.9 - ANEMIA, UNSPECIFIED (3) GIB (gastrointestinal bleeding) Assessment/Plan: Hgb: 6.9 on admission, stool occult positive. given 3 unit prbc during hospital stay. on protonix, clears. 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 monitor Code(s): F10.11 - ALCOHOL ABUSE, IN REMISSION (8) DVT prophylaxis Assessment/Plan: heparin bid Code(s): Z29.9 - ENCOUNTER FOR PROPHYLACTIC MEASURES, UNSPECIFIED Visit type - Emergency Visit Emergency Visit: Yes ED Registration Date: 11/01/19 Care time: The patient presented to the Emergency Department on the above date and was hospitalized for further evaluation of their emergent condition. - New Patient This patient is new to me today: No - Critical Care Critical Care patient: No - Discharge Referral Referred to [facility] Med P.C.: No
--- NOTE | 2019-11-07 15:23 | PN ---
Progress Note (short form) - Note Progress Note: Renal follow up for CKD Seen and examined at the bedside awake and alert offers no acute complaints no chest pain or shortness of breath does report orthopnea when laying flat and some PELAEZ when out of bed making urine no leg swelling Vital Signs Temperature 97.8 F 11/07/19 14:00 Pulse Rate 83 11/07/19 14:00 Respiratory Rate 20 11/07/19 14:00 Blood Pressure 136/62 11/07/19 14:00 O2 Sat by Pulse Oximetry (%) 99 11/07/19 09:00 Intake & Output 11/04/19 11/05/19 11/06/19 11/07/19 23:59 23:59 23:59 23:59 Intake Total 864 200 450 900 Output Total 750 1250 450 800 Balance 114 -1050 0 100 NAD RRR Dec BS at lung bases , no rales or wheeze soft NT/ND, Obese no bladder distension no LE edema, clubbing or cyanosis CBC, BMP 11/07/19 05:40 11/07/19 05:40 Current Medications Albuterol Sulfate (Ventolin Hfa Inhaler -) 2 puff IH BID [facility] Last Admin: 11/07/19 09:04 Dose: Not Given Atorvastatin Calcium (Lipitor -) 20 mg PO HS [facility] Last Admin: 11/06/19 22:14 Dose: 20 mg Bacitracin (Bacitracin -) 1 applic TP BID [facility] Last Admin: 11/07/19 09:02 Dose: 1 applic Budesonide/Formoterol Fumarate (Symbicort 160/4.5mcg -) 2 puff IH BID [facility] Last Admin: 11/07/19 09:03 Dose: Not Given Metoclopramide HCl (Reglan -) 5 mg PO TIDAC [facility] Last Admin: 11/07/19 11:53 Dose: 5 mg Nebivolol (Bystolic -) 5 mg PO DAILY [facility] Last Admin: 11/07/19 09:02 Dose: 5 mg Pantoprazole Sodium (Protonix -) 40 mg PO BID [facility] Last Admin: 11/07/19 09:02 Dose: 40 mg Tamsulosin HCl (Flomax -) 0.4 mg PO DAILY@0830 [facility] Last Admin: 11/07/19 09:02 Dose: 0.4 mg 74 year old gentleman with history of CKD stage 4 (baseline Cr 2.4), insulin dependent diabetes, hypertension, BPH, cirrhosis, hx of GI bleed who presented with fall and generalized weakness and noted to have acute anemia. 1. acute anemia likely secondary to GI bleed 2. CKD stage 4 secondary to diabetic nephropathy 3. Azotemia (high BUN likely from upper GI bleed) 4. DM type 2 5. Hypertension 6. Cirrhosis history 7. BPH Renal function signifincatly improved, Cr lower then outpatient levels Check CXR in AM, if any evidence of effusions or congestion can resume diuretics Hgb stable, will give MARTHA as well Erwin Nascimento DO
[2019-11-07] MEDS ORDERED: EPOETIN ALFA 20,000 UNIT/1 ML VIAL SQ ONE (16:30)
[2019-11-07] MEDS: HEPARIN NA (PORCINE) 5,000 UNITS/ML 1ML VIAL SQ SCH (21:11)
[2019-11-07] MEDS: ATORVASTATIN CA 20 MG TABLET (FP) PO SCH (21:12)
[2019-11-08] MEDS: METOCLOPRAMIDE HCL 10 MG TABLET (FP) PO SCH ×3 (06:29→16:48)
[2019-11-08 06:49] LABS: BASO % 0.8 % (0-2.0); EOS % 2.8 % (0-4.5); HEMATOCRIT 28.3 % (35.4-49); HEMOGLOBIN 9.4 GM/dL (11.7-16.9); LYMPH % 22.5 % (8-40); MCH 29.6 pg (25.7-33.7); MCHC 33.2 g/dl (32.0-35.9); MEAN CELL VOLUME 89.2 fl (80-96); MEAN PLT VOLUME 9.6 fl (7.5-11.1); MONO % 8.8 % (3.8-10.2); NEUT % 65.1 % (42.8-82.8); PLATELET COUNT 112 K/MM3 (134-434); RBC 3.17 M/mm3 (4.00-5.60); RDW 16.2 % (11.9-15.9); WHITE BLOOD COUNT 6.2 K/mm3 (4.0-10.0)
[2019-11-08 07:16] LABS: ALBUMIN 3.1 g/dl (3.4-5.0); BILIRUBIN,TOTAL 0.7 mg/dL (0.2-1); CREATININE 1.4 mg/dL (0.55-1.3); POTASSIUM 4.4 mmol/L (3.5-5.1); TOT PROT 6.1 g/dl (6.4-8.2)
[2019-11-08] MEDS: TAMSULOSIN HCL 0.4 MG CAP PO SCH (09:25)
--- NOTE | 2019-11-08 09:25 | PN ---
Progress Note, Physician Chief Complaint: anemia History of Present Illness: no melena, no BMs no cp, sob not ambulating when stood up today he felt dizzy - Current Medication List Current Medications: Active Medications Albuterol Sulfate (Ventolin Hfa Inhaler -) 2 puff IH BID [facility] Last Admin: 11/07/19 21:12 Dose: Not Given Atorvastatin Calcium (Lipitor -) 20 mg PO HS [facility] Last Admin: 11/07/19 21:12 Dose: 20 mg Bacitracin (Bacitracin -) 1 applic TP BID [facility] Last Admin: 11/07/19 21:11 Dose: 1 applic Budesonide/Formoterol Fumarate (Symbicort 160/4.5mcg -) 2 puff IH BID [facility] Last Admin: 11/07/19 21:12 Dose: Not Given Heparin Sodium (Porcine) (Heparin -) 5,000 unit SQ BID [facility] Last Admin: 11/07/19 21:11 Dose: 5,000 unit Metoclopramide HCl (Reglan -) 5 mg PO TIDAC [facility] Last Admin: 11/08/19 06:29 Dose: 5 mg Nebivolol (Bystolic -) 5 mg PO DAILY [facility] Last Admin: 11/07/19 09:02 Dose: 5 mg Pantoprazole Sodium (Protonix -) 40 mg PO BID [facility] Last Admin: 11/07/19 21:12 Dose: 40 mg Tamsulosin HCl (Flomax -) 0.4 mg PO DAILY@0830 [facility] Last Admin: 11/07/19 09:02 Dose: 0.4 mg - Objective Vital Signs: Vital Signs Temperature 97.8 F 11/08/19 06:00 Pulse Rate 66 11/08/19 06:00 Respiratory Rate 20 11/08/19 06:00 Blood Pressure 137/54 L 11/08/19 06:00 O2 Sat by Pulse Oximetry (%) 98 11/07/19 21:00 Constitutional: Yes: No Distress, Calm, Obese Cardiovascular: Yes: Regular Rate and Rhythm, S1, S2. No: Gallop, Murmur Respiratory: Yes: Regular, CTA Bilaterally. No: Accessory Muscle Use, Rales Extremities: No: Cold Edema: No Neurological: Yes: Alert, Oriented Psychiatric: No: Agitated Labs: CBC, BMP 11/08/19 05:52 11/08/19 05:52 Assessment/Plan tele: sinus with sinus arrhythmia overnight a/p: 74 m hx cad s/p cabg 2004, hld, ckd, dm here with weakness. weakness, anemia: -severe anemia, hgb 5s -plan per pmd, GI -s/p foc/egd, ulcers noted--bid PPI rx'd cad, remote cabg: -stable, no angina sx's -borderline trops with flat trend, nl ck index = not c/w acs -cont statin -timing of resuming aspirin per GI HTN - controlled - cont same meds hld: -cont statin ckd: -cr near baseline, stable positional dizziness: -rec gradual mobilization, PT eval D/C TELE
[2019-11-08] MEDS: BACITRACIN 15 GM TUBE TOPICAL OINTMENT TP SCH ×2 (09:26→21:22)
[2019-11-08] MEDS: NEBIVOLOL 5 MG TABLET (FP) PO SCH (09:26)
[2019-11-08] MEDS: HEPARIN NA (PORCINE) 5,000 UNITS/ML 1ML VIAL SQ SCH ×2 (09:26→21:21)
[2019-11-08] MEDS: PANTOPRAZOLE 40 MG TABLET (FP) PO SCH ×2 (09:26→21:21)
[2019-11-08] MEDS: BUDESONIDE/FORMETEROL FUMARATE 160/4.5 mcg INHALER IH SCH ×2 (09:27→21:21)
[2019-11-08] MEDS: ALBUTEROL SO4 8 GM HFA INHALER IH SCH ×2 (09:27→21:21)
--- NOTE | 2019-11-08 10:30 | PN ---
Physical Exam: SUBJECTIVE: Patient seen and examined at the bedside. in no acute distress. still having dizziness with position changes. OBJECTIVE: Patient is a 74 year old male wtih PMH of CKD, s/p left forearm fistula placement (no HD), DM, HTN, HLD, s/p stent who presents with weakness and being admitted for severe anemia and is now s/p 3 units of prbc and EGD. bradycardia on tele @ 0455 (37-40bpm) + orthostatic imaging: egd 11/03/19: 3cm hiatal hernia, single ulcer measuring [id number], recommend protonix 40mg daily with a repeat egd in 3 mos Period Temp Pulse Resp BP Sys/Cabral Pulse Ox Last 24 Hr 97.7 F-98.3 F 62-83 20-20 86-146/49-63 98-98 GENERAL: The patient is awake, alert, and fully oriented, in no acute distress. HEAD: Normal with no signs of trauma. EYES: PERRL, extraocular movements intact, sclera anicteric, conjunctiva clear. No ptosis. ENT: Ears normal, nares patent, oropharynx clear without exudates, moist mucous membranes. NECK: Trachea midline, full range of motion, supple. LUNGS: Breath sounds equal, clear to auscultation bilaterally HEART: Regular rate and rhythm, mild tachycardia ABDOMEN: Soft, nontender, nondistended, normoactive bowel sounds EXTREMITIES: no edema. left forearm av fistula PSYCH: Normal mood, normal affect. SKIN: skin tear right mid arm Laboratory Results - last 24 hr 11/07/19 11/07/19 11/08/19 16:28 21:14 05:40 WBC RBC Hgb Hct MCV MCH MCHC RDW Plt Count MPV Absolute Neuts (auto) Neutrophils % Lymphocytes % Monocytes % Eosinophils % Basophils % Nucleated RBC % Sodium Potassium Chloride Carbon Dioxide Anion Gap BUN Creatinine Est GFR (CKD-EPI)AfAm Est GFR (CKD-EPI)NonAf POC Glucometer 130 154 115 Random Glucose Calcium Total Bilirubin AST ALT Alkaline Phosphatase Total Protein Albumin 11/08/19 11/08/19 05:52 05:52 WBC 6.2 RBC 3.17 L Hgb 9.4 L Hct 28.3 L MCV 89.2 MCH 29.6 MCHC 33.2 RDW 16.2 H Plt Count 112 L MPV 9.6 Absolute Neuts (auto) 4.0 Neutrophils % 65.1 Lymphocytes % 22.5 D Monocytes % 8.8 Eosinophils % 2.8 Basophils % 0.8 Nucleated RBC % 0 Sodium 140 Potassium 4.4 Chloride 111 H Carbon Dioxide 24 Anion Gap 5 L BUN 19.0 H Creatinine 1.4 H Est GFR (CKD-EPI)AfAm 56.96 Est GFR (CKD-EPI)NonAf 49.14 POC Glucometer Random Glucose 111 H Calcium 9.0 Total Bilirubin 0.7 AST 18 ALT 21 Alkaline Phosphatase 76 Total Protein 6.1 L Albumin 3.1 L Active Medications Generic Name Dose Route Start Last Admin Trade Name Freq PRN Reason Stop Dose Admin Albuterol Sulfate 2 puff 11/03/19 22:00 11/08/19 09:27 Ventolin Hfa Inhaler - IH Not Given BID [facility] Atorvastatin Calcium 20 mg 11/03/19 22:00 11/07/19 21:12 Lipitor - PO 20 mg HS [facility] Administration Bacitracin 1 applic 11/03/19 22:00 11/08/19 09:26 Bacitracin - TP 1 applic BID [facility] Administration Budesonide/Formoterol Fumarate 2 puff 11/03/19 22:00 11/08/19 09:27 Symbicort 160/4.5mcg - IH Not Given BID [facility] Heparin Sodium (Porcine) 5,000 unit 11/07/19 22:00 11/08/19 09:26 Heparin - SQ 5,000 unit BID [facility] Administration Metoclopramide HCl 5 mg 11/06/19 16:30 11/08/19 06:29 Reglan - PO 5 mg TIDAC [facility] Administration Nebivolol 5 mg 11/05/19 11:45 11/08/19 09:26 Bystolic - PO 5 mg DAILY [facility] Administration Pantoprazole Sodium 40 mg 11/06/19 22:00 11/08/19 09:26 Protonix - PO 40 mg BID [facility] Administration Tamsulosin HCl 0.4 mg 11/04/19 08:30 11/08/19 09:25 Flomax - PO 0.4 mg DAILY@0830 [facility] Administration ASSESSMENT/PLAN: Problem List - Problems (1) Acute blood loss anemia Assessment/Plan: secondary to gi bleed, hmg/hct more stable today s/p 3 units of prbc during hospital stay Code(s): D62 - ACUTE POSTHEMORRHAGIC ANEMIA (2) Symptomatic anemia Assessment/Plan: mild dizziness but also noted to be orthostatic today fall precautions Code(s): D64.9 - ANEMIA, UNSPECIFIED (3) GIB (gastrointestinal bleeding) Assessment/Plan: Hgb: 6.9 on admission, stool occult positive. given 3 unit prbc during hospital stay. on protonix, clears. 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 he ambulates with RW at baseline he continues to refuse rehab and gets irritated when it is brought up to him discussed importance of safety with him Code(s): R53.1 - WEAKNESS (7) H/O ETOH abuse Assessment/Plan: denies any etoh abuse, sober x 42 months per patient no signs of acute withdrawal. monitor Code(s): F10.11 - ALCOHOL ABUSE, IN REMISSION (8) Thrombocytopenia Assessment/Plan: chronic per his past hospital stays monitor refer to hematology as an outpatient Code(s): D69.6 - THROMBOCYTOPENIA, UNSPECIFIED (9) Risk for falls Assessment/Plan: risk for falls with injury refusing rehab Code(s): Z91.81 - HISTORY OF FALLING (10) Diabetes Assessment/Plan: bgms stable hmga1c now novolog based on sliding scale Code(s): E11.9 - TYPE 2 DIABETES MELLITUS WITHOUT COMPLICATIONS (11) DVT prophylaxis Assessment/Plan: heparin bid Code(s): Z29.9 - ENCOUNTER FOR PROPHYLACTIC MEASURES, UNSPECIFIED (12) Prophylactic measure Assessment/Plan: fen no ivf monitor electrolytes low salt/low cholesterol diet full code Code(s): Z29.9 - ENCOUNTER FOR PROPHYLACTIC MEASURES, UNSPECIFIED Visit type - Emergency Visit Emergency Visit: Yes ED Registration Date: 11/01/19 Care time: The patient presented to the Emergency Department on the above date and was hospitalized for further evaluation of their emergent condition. - New Patient This patient is new to me today: No - Critical Care Critical Care patient: No - Discharge Referral Referred to [facility] Med P.C.: No
--- NOTE | 2019-11-08 11:01 | PN ---
Progress Note (short form) - Note Progress Note: Renal follow up for CKD Seen and examined at the bedside awake and alert offers no acute complaints no chest pain or shortness of breath Vital Signs Temperature 98.3 F 11/08/19 10:00 Pulse Rate 68 11/08/19 10:00 Respiratory Rate 20 11/08/19 10:00 Blood Pressure 146/63 11/08/19 10:00 O2 Sat by Pulse Oximetry (%) 98 11/08/19 09:00 Intake & Output 11/05/19 11/06/19 11/07/19 11/08/19 23:59 23:59 23:59 23:59 Intake Total 462 507 8772 250 Output Total 7413 937 5449 400 Balance -1050 0 50 -150 NAD RRR Dec BS at lung bases , no rales or wheeze soft NT/ND, Obese no bladder distension no LE edema, clubbing or cyanosis CBC, BMP 11/08/19 05:52 11/08/19 05:52 Current Medications Albuterol Sulfate (Ventolin Hfa Inhaler -) 2 puff IH BID [facility] Last Admin: 11/08/19 09:27 Dose: Not Given Atorvastatin Calcium (Lipitor -) 20 mg PO HS [facility] Last Admin: 11/07/19 21:12 Dose: 20 mg Bacitracin (Bacitracin -) 1 applic TP BID [facility] Last Admin: 11/08/19 09:26 Dose: 1 applic Budesonide/Formoterol Fumarate (Symbicort 160/4.5mcg -) 2 puff IH BID [facility] Last Admin: 11/08/19 09:27 Dose: Not Given Heparin Sodium (Porcine) (Heparin -) 5,000 unit SQ BID [facility] Last Admin: 11/08/19 09:26 Dose: 5,000 unit Metoclopramide HCl (Reglan -) 5 mg PO TIDAC [facility] Last Admin: 11/08/19 06:29 Dose: 5 mg Nebivolol (Bystolic -) 5 mg PO DAILY [facility] Last Admin: 11/08/19 09:26 Dose: 5 mg Pantoprazole Sodium (Protonix -) 40 mg PO BID [facility] Last Admin: 11/08/19 09:26 Dose: 40 mg Tamsulosin HCl (Flomax -) 0.4 mg PO DAILY@0830 [facility] Last Admin: 11/08/19 09:25 Dose: 0.4 mg 74 year old gentleman with history of CKD stage 4 (baseline Cr 2.4), insulin dependent diabetes, hypertension, BPH, cirrhosis, hx of GI bleed who presented with fall and generalized weakness and noted to have acute anemia. 1. acute anemia likely secondary to GI bleed 2. CKD stage 4 secondary to diabetic nephropathy 3. Azotemia (high BUN likely from upper GI bleed) 4. DM type 2 5. Hypertension 6. Cirrhosis history 7. BPH Renal function significantly improved, Cr lower then outpatient levels Chest X-ray done this am w/op evidence of CHF/effusions. Can maintain off diuretics for now and plan lower dose diuretics to be resumed on discharge. Hgb stable at this time. Discharge planning as per primary. Erwin Nascimento DO
[2019-11-08 13:48] LABS: ANISOCYTOSIS 1+; MACROCYTOSIS 0; PLATELET ESTIMATE DECREASED
[2019-11-08] MEDS: INSULIN SLIDING SCALE (NOVOLOG) 1 VIAL SQ SCH ×2 (16:48→21:26)
[2019-11-08] MEDS: ATORVASTATIN CA 20 MG TABLET (FP) PO SCH (21:21)
[2019-11-09 06:20] LABS: BASO % 0.7 % (0-2.0); EOS % 2.5 % (0-4.5); HEMATOCRIT 28.1 % (35.4-49); HEMOGLOBIN 9.4 GM/dL (11.7-16.9); LYMPH % 20.5 % (8-40); MCH 29.8 pg (25.7-33.7); MCHC 33.5 g/dl (32.0-35.9); MEAN PLT VOLUME 9.8 fl (7.5-11.1); NEUT % 67.3 % (42.8-82.8); PLATELET COUNT 113 K/MM3 (134-434); RBC 3.16 M/mm3 (4.00-5.60); RDW 16.1 % (11.9-15.9); WHITE BLOOD COUNT 5.8 K/mm3 (4.0-10.0)
[2019-11-09] MEDS: INSULIN SLIDING SCALE (NOVOLOG) 1 VIAL SQ SCH ×4 (06:35→22:16)
[2019-11-09] MEDS: METOCLOPRAMIDE HCL 10 MG TABLET (FP) PO SCH ×3 (06:35→17:29)
[2019-11-09 06:55] LABS: ALBUMIN 2.9 g/dl (3.4-5.0); BILIRUBIN,TOTAL 0.5 mg/dL (0.2-1); BLOOD UREA NITROGEN 18.4 mg/dL (7-18); CALCIUM 8.6 mg/dL (8.5-10.1); CREATININE 1.3 mg/dL (0.55-1.3); POTASSIUM 4.1 mmol/L (3.5-5.1); TOT PROT 5.8 g/dl (6.4-8.2)
[2019-11-09] MEDS: TAMSULOSIN HCL 0.4 MG CAP PO SCH (09:13)
[2019-11-09] MEDS: PANTOPRAZOLE 40 MG TABLET (FP) PO SCH ×2 (09:13→22:17)
[2019-11-09] MEDS: HEPARIN NA (PORCINE) 5,000 UNITS/ML 1ML VIAL SQ SCH ×2 (09:13→22:16)
[2019-11-09] MEDS: NEBIVOLOL 5 MG TABLET (FP) PO SCH (09:13)
[2019-11-09] MEDS: BUDESONIDE/FORMETEROL FUMARATE 160/4.5 mcg INHALER IH SCH ×2 (09:14→22:17)
[2019-11-09] MEDS: BACITRACIN 15 GM TUBE TOPICAL OINTMENT TP SCH ×2 (09:14→22:17)
[2019-11-09] MEDS: ALBUTEROL SO4 8 GM HFA INHALER IH SCH ×2 (09:15→22:17)
[2019-11-09] MEDS ORDERED: ASPIRIN COATED 81 MG TABLET.EC PO SCH (10:00)
--- NOTE | 2019-11-09 10:55 | PN ---
Progress Note (short form) - Note Progress Note: s: no chest pain, palps, dizziness, dyspnea Current Medications Generic Name Dose Route Start Last Admin Trade Name Zackeryq PRN Reason Stop Dose Admin Albuterol Sulfate 2 puff 11/03/19 22:00 11/09/19 09:15 Ventolin Hfa Inhaler - IH 2 puff BID STACEY Administration Aspirin 81 mg 11/09/19 10:00 11/09/19 09:14 Ecotrin - PO 81 mg Q48H STACEY Administration Atorvastatin Calcium 20 mg 11/03/19 22:00 11/08/19 21:21 Lipitor - PO 20 mg HS STACEY Administration Bacitracin 1 applic 11/03/19 22:00 11/09/19 09:14 Bacitracin - TP 1 applic BID STACEY Administration Budesonide/Formoterol Fumarate 2 puff 11/03/19 22:00 11/09/19 09:14 Symbicort 160/4.5mcg - IH Not Given BID STACEY Heparin Sodium (Porcine) 5,000 unit 11/07/19 22:00 11/09/19 09:13 Heparin - SQ 5,000 unit BID STACEY Administration Insulin Aspart 1 vial 11/08/19 16:30 11/09/19 06:35 Novolog Vial Sliding Scale - SQ Not Given ACHS [facility] Protocol Metoclopramide HCl 5 mg 11/06/19 16:30 11/09/19 06:35 Reglan - PO Not Given TIDAC [facility] Nebivolol 5 mg 11/05/19 11:45 11/09/19 09:13 Bystolic - PO 5 mg DAILY STACEY Administration Pantoprazole Sodium 40 mg 11/06/19 22:00 11/09/19 09:13 Protonix - PO 40 mg BID STACEY Administration Tamsulosin HCl 0.4 mg 11/04/19 08:30 11/09/19 09:13 Flomax - PO 0.4 mg DAILY@0830 STACEY Administration Vital Signs Period Temp Pulse Resp BP Sys/Cabral Pulse Ox Last 24 Hr 98.3 F-98.7 F 60-78 17-20 113-172/52-81 96 Constitutional: Yes: No Distress Cardiovascular: Yes: Regular Rate and Rhythm Respiratory: Yes: CTA Bilaterally Gastrointestinal: Yes: Soft (NT) Edema: No Neurological: Yes: Alert, Oriented no jaundice, diaphoresis not agitated CBC, BMP 11/09/19 05:25 11/09/19 05:25 a/p: 74 m hx cad s/p cabg 2004, hld, ckd, dm here with weakness. weakness, anemia: -severe anemia, hgb 5s -plan per pmd, GI -s/p foc/egd, ulcers noted--bid PPI rx'd cad, remote cabg: -stable, no angina sx's -borderline trops with flat trend, nl ck index = not c/w acs -cont statin -asa resumed qod to start per GI, monitor for recurrent anemia/bleeding HTN - controlled - cont same meds hld: -cont statin ckd: -cr near baseline, stable positional dizziness: -rec gradual mobilization, PT eval
--- NOTE | 2019-11-09 11:47 | DS ---
Physical Exam: SUBJECTIVE: Patient seen and examined at the bedside. denies dizziness or shortness of breath. he has been asking to go home but now is appealing discharge. Patient has been refusing to participate in physical therapy here and is refusing rehab placement despite numerous conversations with him. He is a fall risk and continues to be a fall risk due to lower extremity weakness. At baseline he ambulates with a RW. He lives alone but has an aide that helps him for a few hours per day. He gets irritated with me and with SW when we ask him to re consider rehab or at least home physical therapy. OBJECTIVE: Patient is a 74 year old male wt PMH of CKD, s/p left forearm fistula placement (no HD), DM, HTN, HLD, s/p stent who presents with weakness and being admitted for severe anemia and is now s/p 3 units of prbc and EGD. imaging: egd 11/03/19: 3cm hiatal hernia, single ulcer measuring [id number], recommend protonix 40mg daily with a repeat egd in 3 mos Vital Signs Period Temp Pulse Resp BP Sys/Cabral Pulse Ox Last 24 Hr 98.3 F-98.7 F 60-78 17-20 113-172/52-81 96-100 PHYSICAL EXAM GENERAL: The patient is awake, alert, and fully oriented, in no acute distress. HEAD: Normal with no signs of trauma. EYES: PERRL, extraocular movements intact, sclera anicteric, conjunctiva clear. No ptosis. ENT: Ears normal, nares patent, oropharynx clear without exudates, moist mucous membranes. NECK: Trachea midline, full range of motion, supple. LUNGS: Breath sounds equal, clear to auscultation bilaterally HEART: Regular rate and rhythm ABDOMEN: Soft, nontender, nondistended, normoactive bowel sounds EXTREMITIES: no edema. left forearm av fistula PSYCH: Normal mood, normal affect. SKIN: skin tear right mid arm LABS Laboratory Results - last 24 hr 11/08/19 11/08/19 11/08/19 05:52 06:37 16:45 WBC RBC Hgb Hct MCV MCH MCHC RDW Plt Count MPV Absolute Neuts (auto) Neutrophils % Neutrophils % (Manual) 68.0 Band Neutrophils % 0.0 Lymphocytes % Lymphocytes % (Manual) 16.5 Monocytes % Monocytes % (Manual) 8 Eosinophils % Eosinophils % (Manual) 1.0 Basophils % Basophils % (Manual) 0.0 Myelocytes % (Man) 0 Promyelocytes % (Man) 0 Blast Cells % (Manual) 0 Nucleated RBC % Metamyelocytes 0 Hypochromia 0 Platelet Estimate Decreased Polychromasia 1+ Poikilocytosis 1+ Basophilic Stippling 1+ Anisocytosis 1+ Microcytosis 2+ Macrocytosis 0 Fragmented RBCs 0 Sodium Potassium Chloride Carbon Dioxide Anion Gap BUN Creatinine Est GFR (CKD-EPI)AfAm Est GFR (CKD-EPI)NonAf POC Glucometer 114 Random Glucose Hemoglobin A1c % 5.5 Calcium Total Bilirubin AST ALT Alkaline Phosphatase Total Protein Albumin 11/08/19 11/09/19 11/09/19 21:25 05:25 05:25 WBC 5.8 RBC 3.16 L Hgb 9.4 L Hct 28.1 L MCV 89.0 MCH 29.8 MCHC 33.5 RDW 16.1 H Plt Count 113 L MPV 9.8 Absolute Neuts (auto) 3.9 Neutrophils % 67.3 Neutrophils % (Manual) Band Neutrophils % Lymphocytes % 20.5 Lymphocytes % (Manual) Monocytes % 9.0 Monocytes % (Manual) Eosinophils % 2.5 Eosinophils % (Manual) Basophils % 0.7 Basophils % (Manual) Myelocytes % (Man) Promyelocytes % (Man) Blast Cells % (Manual) Nucleated RBC % 0 Metamyelocytes Hypochromia Platelet Estimate Polychromasia Poikilocytosis Basophilic Stippling Anisocytosis Microcytosis Macrocytosis Fragmented RBCs Sodium 140 Potassium 4.1 Chloride 111 H Carbon Dioxide 22 Anion Gap 7 L BUN 18.4 H Creatinine 1.3 Est GFR (CKD-EPI)AfAm 62.30 Est GFR (CKD-EPI)NonAf 53.75 POC Glucometer 123 Random Glucose 127 H Hemoglobin A1c % Calcium 8.6 Total Bilirubin 0.5 AST 17 ALT 19 Alkaline Phosphatase 76 Total Protein 5.8 L Albumin 2.9 L 11/09/19 06:32 WBC RBC Hgb Hct MCV MCH MCHC RDW Plt Count MPV Absolute Neuts (auto) Neutrophils % Neutrophils % (Manual) Band Neutrophils % Lymphocytes % Lymphocytes % (Manual) Monocytes % Monocytes % (Manual) Eosinophils % Eosinophils % (Manual) Basophils % Basophils % (Manual) Myelocytes % (Man) Promyelocytes % (Man) Blast Cells % (Manual) Nucleated RBC % Metamyelocytes Hypochromia Platelet Estimate Polychromasia Poikilocytosis Basophilic Stippling Anisocytosis Microcytosis Macrocytosis Fragmented RBCs Sodium Potassium Chloride Carbon Dioxide Anion Gap BUN Creatinine Est GFR (CKD-EPI)AfAm Est GFR (CKD-EPI)NonAf POC Glucometer 129 Random Glucose Hemoglobin A1c % Calcium Total Bilirubin AST ALT Alkaline Phosphatase Total Protein Albumin HOSPITAL COURSE: Date of Admission:11/01/19 Date of Discharge: 11/09/19 Minutes to complete discharge: 60 Discharge Summary Problems reviewed: Yes Reason For Visit: WEAKNESS/FOUND ON FLOOR Current Active Problems Acute blood loss anemia (Acute) DVT prophylaxis (Acute) Diabetes (Acute) GIB (gastrointestinal bleeding) (Acute) Gastric ulcer (Acute) H/O ETOH abuse (Acute) Prophylactic measure (Acute) Prophylactic measure (Acute) Risk for falls (Acute) Symptomatic anemia (Acute) Thrombocytopenia (Acute) Uremia (Acute) Condition: Guarded - Instructions Diet, Activity, Other Instructions: Mr Iverson: We will be sending you home today. You were admitted for anemia and have received blood transfusions. You were evaluated by digital specialist and gastroentrologist during your stay. Here are our recommendations: Please continue your home medications except for daily aspirin. Please take the aspirin EVERY 48 hours or every 2 days. Please take the Protoninx TWICE per day at 8am and 8pm. You will need to have your blood work repeated within in 3-5 days to assure that it remains stable. Please follow up with your primary care doctor for follow up. Follow ups: Please follow up with Dr. Flores as you may need a repeat EGD. Please follow up with your primary care doctor for lab work to assure that your blood work is stable. Thank you for allowing us to care for you. I am available for questions: [place] [facility] [phone] Referrals: Emanuel Rangel MD [Staff Physician] - Alex Flores MD [Staff Physician] - Kirby Browning MD [Primary Care Provider] - Disposition: HOME - Home Medications Comprehensive Discharge Medication List: Ambulatory Orders Albuterol Sulfate Inhaler - [Ventolin HFA Inhaler -] 2 inh IH BID 03/23/13 Allopurinol [Zyloprim -] 100 mg PO DAILY 03/23/13 Nebivolol HCl [Bystolic] 5 mg PO DAILY 03/23/13 Salmeterol/Fluticasone [Advair 500Mcg/50Mcg -] 1 inh IN BID 03/23/13 Simvastatin [Zocor -] 40 mg PO HS 03/23/13 Omeprazole [Prilosec] 40 mg PO DAILY 07/01/16 Pregabalin [Lyrica] 100 mg PO BID 07/01/16 Insulin Aspart [Novolog] 4 unit SQ ASDIR 04/19/17 Dutasteride [Avodart] 0.5 mg PO DAILY 04/20/17 Lactulose [Cephulac -] 10 gm PO PRN 04/20/17 Tamsulosin HCl [Flomax -] 0.4 mg PO DAILY 04/20/17 Torsemide [Demadex -] 100 mg PO DAILY 04/20/17 Brimonidine Tartrate [Alphagan P 0.1% -] 1 drop OU TID 07/23/17 Insulin Detemir [Levemir Flextouch] 6 unit SQ HS 01/18/19 Aspirin Coated [Ecotrin -] 81 mg PO Q48H #90 tablet.ec 11/09/19 Pantoprazole Sodium [Protonix -] 40 mg PO BID #120 tablet.ec 11/09/19 Problem List - Problems (1) Acute blood loss anemia Assessment/Plan: secondary to gi bleed, hmg/hct stable today s/p 3 units of prbc during hospital stay Code(s): D62 - ACUTE POSTHEMORRHAGIC ANEMIA (2) Symptomatic anemia Assessment/Plan: resolved fall precautions Code(s): D64.9 - ANEMIA, UNSPECIFIED (3) GIB (gastrointestinal bleeding) Assessment/Plan: Hgb: 6.9 on admission, stool occult positive. given 3 unit prbc during hospital stay. on protonix, low fat/low chol diet. egd 11/03/19: 3cm hiatal hernia, single ulcer measuring [id number], recommend protonix 40mg daily, d/c if hmg stable, repeat egd in 3 mos Hold torsemide and asa in setting of acute bleed restart ASA every other day Code(s): K92.2 - GASTROINTESTINAL HEMORRHAGE, UNSPECIFIED Qualifiers: GI bleed type/associated pathology: unspecified gastrointestinal hemorrhage type Qualified Code(s): K92.2 - Gastrointestinal hemorrhage, unspecified (4) Uremia Assessment/Plan: seen by renal and no indication for MOLDER PIPE COVERING Code(s): N19 - UNSPECIFIED KIDNEY FAILURE (5) AV fistula Assessment/Plan: left forearm, +bruit, thrill+ Code(s): I77.0 - ARTERIOVENOUS FISTULA, ACQUIRED (6) Weakness Assessment/Plan: for rehab placement but patient is refusing, wants to go home discussed that he should have rehab for lower ext strength. he ambulates with RW at baseline he continues to refuse rehab and gets irritated when it is brought up to him discussed importance of safety with him Code(s): R53.1 - WEAKNESS (7) H/O ETOH abuse Assessment/Plan: denies any etoh abuse, sober x 42 months per patient no signs of acute withdrawal. monitor Code(s): F10.11 - ALCOHOL ABUSE, IN REMISSION (8) Thrombocytopenia Assessment/Plan: chronic per his past hospital stays monitor refer to hematology as an outpatient Code(s): D69.6 - THROMBOCYTOPENIA, UNSPECIFIED (9) Risk for falls Assessment/Plan: risk for falls with injury refusing rehab, refusing physical therapy at home Code(s): Z91.81 - HISTORY OF FALLING (10) Diabetes Assessment/Plan: bgms stable novolog based on sliding scale Code(s): E11.9 - TYPE 2 DIABETES MELLITUS WITHOUT COMPLICATIONS (11) DVT prophylaxis Assessment/Plan: heparin bid Code(s): Z29.9 - ENCOUNTER FOR PROPHYLACTIC MEASURES, UNSPECIFIED (12) Prophylactic measure Assessment/Plan: fen no ivf monitor electrolytes low salt/low cholesterol diet full code Code(s): Z29.9 - ENCOUNTER FOR PROPHYLACTIC MEASURES, UNSPECIFIED This patient is new to me today: Yes Date on this admission: 11/09/19 Emergency Visit: No Critical Care patient: No - Discharge Referral Referred to [facility] No
--- NOTE | 2019-11-09 13:25 | PN ---
Progress Note (short form) - Note Progress Note: Renal follow up for CKD Seen and examined at the bedside awake and alert offers no acute complaints pt contesting discharge today Vital Signs Temperature 98.5 F 11/09/19 10:00 Pulse Rate 68 11/09/19 10:00 Respiratory Rate 17 11/09/19 10:00 Blood Pressure 172/65 H 11/09/19 10:00 O2 Sat by Pulse Oximetry (%) 100 11/09/19 09:00 Intake & Output 11/06/19 11/07/19 11/08/19 11/09/19 23:59 23:59 23:59 23:59 Intake Total 450 1150 1450 250 Output Total 450 1100 1400 400 Balance 0 50 50 -150 NAD RRR Dec BS at lung bases , no rales or wheeze soft NT/ND, Obese no bladder distension no LE edema, clubbing or cyanosis CBC, BMP 11/09/19 05:25 11/09/19 05:25 Current Medications Albuterol Sulfate (Ventolin Hfa Inhaler -) 2 puff IH BID [facility] Last Admin: 11/09/19 09:15 Dose: 2 puff Aspirin (Ecotrin -) 81 mg PO Q48H [facility] Last Admin: 11/09/19 09:14 Dose: 81 mg Atorvastatin Calcium (Lipitor -) 20 mg PO HS [facility] Last Admin: 11/08/19 21:21 Dose: 20 mg Bacitracin (Bacitracin -) 1 applic TP BID [facility] Last Admin: 11/09/19 09:14 Dose: 1 applic Budesonide/Formoterol Fumarate (Symbicort 160/4.5mcg -) 2 puff IH BID [facility] Last Admin: 11/09/19 09:14 Dose: Not Given Heparin Sodium (Porcine) (Heparin -) 5,000 unit SQ BID [facility] Last Admin: 11/09/19 09:13 Dose: 5,000 unit Insulin Aspart (Novolog Vial Sliding Scale -) 1 vial SQ ACHS [facility]; Protocol Last Admin: 11/09/19 12:04 Dose: Not Given Metoclopramide HCl (Reglan -) 5 mg PO TIDAC [facility] Last Admin: 11/09/19 12:04 Dose: Not Given Nebivolol (Bystolic -) 5 mg PO DAILY [facility] Last Admin: 11/09/19 09:13 Dose: 5 mg Pantoprazole Sodium (Protonix -) 40 mg PO BID [facility] Last Admin: 11/09/19 09:13 Dose: 40 mg Tamsulosin HCl (Flomax -) 0.4 mg PO DAILY@0830 [facility] Last Admin: 11/09/19 09:13 Dose: 0.4 mg 74 year old gentleman with history of CKD stage 4 (baseline Cr 2.4), insulin dependent diabetes, hypertension, BPH, cirrhosis, hx of GI bleed who presented with fall and generalized weakness and noted to have acute anemia. 1. acute anemia likely secondary to GI bleed 2. CKD stage 4 secondary to diabetic nephropathy 3. Azotemia (high BUN likely from upper GI bleed) 4. DM type 2 5. Hypertension 6. Cirrhosis history 7. BPH Renal function improved and stable discharge planning as per primary team can be off diuretics for now as there is no evidence of volume overload. To follow up with Dr. Radha Perales on discharge. Erwin Nascimento DO
[2019-11-09] MEDS: ATORVASTATIN CA 20 MG TABLET (FP) PO SCH (22:17)
[2019-11-10] MEDS: METOCLOPRAMIDE HCL 10 MG TABLET (FP) PO SCH (06:20)
[2019-11-10] MEDS: INSULIN SLIDING SCALE (NOVOLOG) 1 VIAL SQ SCH (06:20)
[2019-11-10 06:31] VITALS: BP 151/74; PULSE 70; TEMP 98.2
[2019-11-10 07:39] LABS: BASO % 0.7 % (0-2.0); BILIRUBIN,TOTAL 1.1 mg/dL (0.2-1); BLOOD UREA NITROGEN 16.8 mg/dL (7-18); CALCIUM 8.9 mg/dL (8.5-10.1); CREATININE 1.4 mg/dL (0.55-1.3); EOS % 1.9 % (0-4.5); HEMOGLOBIN 9.5 GM/dL (11.7-16.9); LYMPH % 16.8 % (8-40); MCH 30.1 pg (25.7-33.7); MCHC 33.9 g/dl (32.0-35.9); MEAN CELL VOLUME 88.8 fl (80-96); MEAN PLT VOLUME 10.3 fl (7.5-11.1); MONO % 7.4 % (3.8-10.2); NEUT % 73.2 % (42.8-82.8); PLATELET COUNT 129 K/MM3 (134-434); POTASSIUM 4.5 mmol/L (3.5-5.1); RBC 3.15 M/mm3 (4.00-5.60); RDW 16.8 % (11.9-15.9); WHITE BLOOD COUNT 6.2 K/mm3 (4.0-10.0)
--- NOTE | 2019-11-10 08:21 | PN ---
Progress Note (short form) - Note Progress Note: Patient seen and examined at the bedside. denies dizziness or shortness of breath. he has been asking to go home but now is appealing discharge. Patient has been refusing to participate in physical therapy here and is refusing rehab placement despite numerous conversations with him. He is a fall risk and continues to be a fall risk due to lower extremity weakness. At baseline he ambulates with a RW. He lives alone but has an aide that helps him for a few hours per day. He gets irritated with me and with SW when we ask him to re consider rehab or at least home physical therapy. OBJECTIVE: Patient is a 74 year old male wt PMH of CKD, s/p left forearm fistula placement (no HD), DM, HTN, HLD, s/p stent who presents with weakness and being admitted for severe anemia and is now s/p 3 units of prbc and EGD. imaging: egd 11/03/19: 3cm hiatal hernia, single ulcer measuring [id number], recommend protonix 40mg daily with a repeat egd in 3 mos Constitutional: Yes: Well Nourished, No Distress, Calm Eyes: Yes: WNL, Conjunctiva Clear HENT: Yes: WNL, Atraumatic, Normocephalic Neck: Yes: WNL, Supple, Trachea Midline Cardiovascular: Yes: WNL, Regular Rate and Rhythm Respiratory: Yes: WNL, Regular, CTA Bilaterally Gastrointestinal: Yes: WNL, Normal Bowel Sounds ...Rectal Exam: Yes: Guaiac Positive (reported) Genitourinary: Yes: WNL Breast(s): Yes: WNL Musculoskeletal: Yes: WNL Extremities: Yes: Other (right AV fistula) Edema: No Peripheral Pulses WNL: Yes Peripheral Pulses: Left Radial: 2+, Right Radial: 2+, Left Doralis Pedis: 2+, Right Dorsalis Pedis: 2+, Left Femoral: 2+, Right Femoral: 2+ Integumentary: Yes: WNL Neurological: Yes: WNL, Alert, Oriented ...Motor Strength: WNL (gait not observed) Psychiatric: Yes: WNL Problem List - Problems (1) H/O ETOH abuse Code(s): F10.11 - ALCOHOL ABUSE, IN REMISSION (2) GIB (gastrointestinal bleeding) Code(s): K92.2 - GASTROINTESTINAL HEMORRHAGE, UNSPECIFIED Qualifiers: GI bleed type/associated pathology: unspecified gastrointestinal hemorrhage type Qualified Code(s): K92.2 - Gastrointestinal hemorrhage, unspecified (3) Symptomatic anemia Code(s): D64.9 - ANEMIA, UNSPECIFIED (4) Uremia Code(s): N19 - UNSPECIFIED KIDNEY FAILURE (5) AV fistula Code(s): I77.0 - ARTERIOVENOUS FISTULA, ACQUIRED (6) ESRD (end stage renal disease) Code(s): N18.6 - END STAGE RENAL DISEASE (7) Prophylactic measure Code(s): Z29.9 - ENCOUNTER FOR PROPHYLACTIC MEASURES, UNSPECIFIED
== END 2019-11-10 09:26 | disposition home or self-care (01) | DRG 378 ==
LOC: JER 16:13 → JERBED 21:37 → J4W 11-02 00:13
PROVIDERS: ADMIT Internal Medicine; ATTEND Nurse Practitioner Acute Care
PROC: 30233N1 Transfusion of Nonautologous Red Blood Cells into Peripheral Vein, Percutaneous Approach (ICD-10-PCS; 2019-11-02)
PROC: 0DJ08ZZ Inspection of Upper Intestinal Tract, Via Natural or Artificial Opening Endoscopic (ICD-10-PCS; principal; 2019-11-03 14:30)
DX: K25.0 Acute gastric ulcer with hemorrhage (principal); N18.4 Chronic kidney disease, stage 4 (severe); K76.6 Portal hypertension; D62 Acute posthemorrhagic anemia; I85.00 Esophageal varices without bleeding; I25.10 Atherosclerotic heart disease of native coronary artery without angina pectoris; K70.30 Alcoholic cirrhosis of liver without ascites; K76.89 Other specified diseases of liver; J44.9 Chronic obstructive pulmonary disease, unspecified; E11.21 Type 2 diabetes mellitus with diabetic nephropathy; K44.9 Diaphragmatic hernia without obstruction or gangrene; N40.0 Benign prostatic hyperplasia without lower urinary tract symptoms; D69.6 Thrombocytopenia, unspecified; E78.5 Hyperlipidemia, unspecified
CPT/HCPCS: 36415; 36430; 36511; 70450-TC; 71045-TC-FY; 80048; 80053; 81003; 82272; 82550; 82553; 82728; 82962; 83036; 83540; 83550; 83605; 83735; 84100; 84484; 85025; 85730; 86850; 86870; 86900; 86901; 86902; 86922; 87086; 93005; 93010; 94760; 97116-GP; 97162-GP; 99285-25; J0885; J1644; J2597; P9038; P9058

== ENCOUNTER 2023-12-28 12:51 | Observation (INO) | payer OTHER ==
[2023-12-28] MEDS ORDERED: ACETAMINOPHEN INJECTION 100 ML IVPB ONE (13:39)
[2023-12-28] MEDS: ACETAMINOPHEN 1000 MG/100 ML BAG IVPB ONE (14:07)
[2023-12-28 14:13] LABS: BASO % 0.6 % (0-2.0); HEMATOCRIT 35.1 % (35.4-49); HEMOGLOBIN 11.2 GM/dL (11.7-16.9); LYMPH % 8.3 % (8-40); MCH 29.4 pg (25.7-33.7); MEAN PLT VOLUME 11.3 fl (7.5-11.1); MONO % 8.9 % (3.8-10.2); NEUT % 82.2 % (42.8-82.8); PLATELET COUNT 89 10^3/uL (134-434); RBC 3.82 M/mm3 (4.00-5.60); RDW 16.2 % (11.9-15.9); WHITE BLOOD COUNT 5.1 K/mm3 (4.0-10.0)
[2023-12-28 14:22] LABS: INR 1.11 (0.83-1.09); PROTHROMBIN TIME (PATIENT) 12.9 SEC (9.7-13.0)
[2023-12-28 14:24] LABS: ACTIVATED PTT 28.9 SECONDS (25.2-36.5)
[2023-12-28] MEDS ORDERED: AZITHROMYCIN IVPB 500 MG/250 ML BAG IVPB ONE (14:31)
[2023-12-28] MEDS ORDERED: ALBUTEROL SO4 2.5/IPRATROPIUM 0.5 INH SOL 3 ML VIAL.NEB. NEB ONE (14:31)
[2023-12-28] MEDS ORDERED: CEFTRIAXONE 1 GM/50 ML BAG ONE (14:31)
[2023-12-28] MEDS ORDERED: methylPREDNISolone NA SUCC 125 MG/2 ML VIAL ONE (14:31)
[2023-12-28 14:38] LABS: POTASSIUM 5.7 mmol/L (3.5-5.1)
[2023-12-28] MEDS: CEFTRIAXONE 1,000 MG in DEXTROSE 5%-WATER - 50 ML IVPB ONE (14:38)
[2023-12-28] MEDS: methylPREDNISolone NA SUCC 125 MG/2 ML VIAL IVPUSH ONE (14:38)
[2023-12-28] MEDS: ALBUTEROL SO4 2.5/IPRATROPIUM 0.5 INH SOL 3 ML VIAL.NEB. NEB SCH (14:38)
[2023-12-28 14:41] LABS: BLOOD UREA NITROGEN 70.8 mg/dL (7-18); MAGNESIUM 2.2 mg/dL (1.8-2.4); VENOUS BASE EXCESS -0.7 mmol/L (-2-2); VENOUS O2 SATURATION 42.3 % (70-80); VENOUS PCO2 51.9 mmHg (38-52); VENOUS PH 7.32 (7.310-7.410)
[2023-12-28 14:44] LABS: PHOSPHOROUS 3.9 mg/dL (2.5-4.9)
[2023-12-28 14:45] LABS: BILIRUBIN,TOTAL 0.6 mg/dL (0.2-1); TOT PROT 7.2 g/dl (6.4-8.2)
[2023-12-28 14:47] LABS: N-TERMINAL BNP 11929.8 pg/ml (5-450)
[2023-12-28] MEDS: AZITHROMYCIN IVPB 500 MG in DEXTROSE 5%-WATER - 250 ML IVPB ONE (15:28)
[2023-12-28] MEDS ORDERED: FUROSEMIDE 40 MG/4 ML INJECTABLE VIAL ONE (15:55)
[2023-12-28] MEDS ORDERED: OSELTAMIVIR PHOSPHATE 30 MG CAPSULE ONE (15:55)
[2023-12-28] MEDS: OSELTAMIVIR PHOSPHATE 30 MG CAPSULE PO ONE (15:59)
[2023-12-28] MEDS: FUROSEMIDE 40 MG/4 ML INJECTABLE VIAL IVPUSH ONE (15:59)
[2023-12-28 16:15] LABS: POTASSIUM 4.4 mmol/L (3.5-5.1)
[2023-12-28 16:17] LABS: BLOOD UREA NITROGEN 72.9 mg/dL (7-18); CALCIUM 9.2 mg/dL (8.5-10.1)
[2023-12-28 16:21] LABS: CREATININE 2.9 mg/dL (0.55-1.3)
[2023-12-28] MEDS ORDERED: ASPIRIN COATED 81 MG TABLET.EC ONE (17:36)
[2023-12-28] MEDS: INSULIN ASPART SLIDING SCALE (NOVOLOG) 1 VIAL SQ SCH (17:42)
[2023-12-28] MEDS: ASPIRIN COATED 81 MG TABLET.EC PO SCH (17:42)
[2023-12-28] MEDS ORDERED: ATORVASTATIN CA 20 MG TABLET (FP) ONE (21:59)
[2023-12-28] MEDS ORDERED: HEPARIN NA (PORCINE) 5,000 UNITS/ML 1ML VIAL ONE (22:00)
[2023-12-28] MEDS ORDERED: PREGABALIN 100 MG CAPSULE ONE (22:00)
[2023-12-28] MEDS ORDERED: ALBUTEROL SO4 HFA INHALER IH ONE (22:00)
[2023-12-28] MEDS: HEPARIN NA (PORCINE) 5,000 UNITS/ML 1ML VIAL SQ SCH (22:12)
[2023-12-28] MEDS: ALBUTEROL SO4 HFA INHALER IH SCH (22:13)
[2023-12-28] MEDS: PREGABALIN 100 MG CAPSULE PO SCH (22:13)
[2023-12-28] MEDS: ATORVASTATIN CA 20 MG TABLET (FP) PO SCH (22:13)
[2023-12-28 22:15] LABS: URINE APPEARANCE CLEAR; URINE BILIRUBIN NEGATIVE (NEGATIVE); URINE COLOR YELLOW; URINE GLUCOSE (UA) NEGATIVE (NEGATIVE); URINE KETONE NEGATIVE (NEGATIVE); URINE LEUK ESTERASE NEGATIVE (NEGATIVE); URINE NITRITE NEGATIVE (NEGATIVE); URINE PROTEIN NEGATIVE (NEGATIVE); URINE UROBILINOGEN 0.2 mg/dL (0.2-1.0)
[2023-12-28] MEDS: BUDESONIDE/FORMETEROL FUMARATE 160/4.5 mcg INHALER IH SCH (22:39)
[2023-12-29 07:15] LABS: HEMATOCRIT 39.1 % (35.4-49); HEMOGLOBIN 12.7 GM/dL (11.7-16.9); MCH 29.7 pg (25.7-33.7); MCHC 32.4 g/dl (32.0-35.9); MEAN CELL VOLUME 91.9 fl (80-96); MEAN PLT VOLUME 10.3 fl (7.5-11.1); PLATELET COUNT 86 10^3/uL (134-434); RBC 4.26 M/mm3 (4.00-5.60); RDW 16.1 % (11.9-15.9); WHITE BLOOD COUNT 4.5 K/mm3 (4.0-10.0)
[2023-12-29 07:24] LABS: INR 1.03 (0.83-1.09); PROTHROMBIN TIME (PATIENT) 11.9 SEC (9.7-13.0)
[2023-12-29 07:43] LABS: POTASSIUM 4.3 mmol/L (3.5-5.1)
[2023-12-29 07:46] LABS: CALCIUM 9.5 mg/dL (8.5-10.1)
[2023-12-29 07:47] LABS: ALBUMIN 3.2 g/dl (3.4-5.0); BLOOD UREA NITROGEN 70.6 mg/dL (7-18); MAGNESIUM 2.3 mg/dL (1.8-2.4)
[2023-12-29 07:50] LABS: CREATININE 2.7 mg/dL (0.55-1.3)
[2023-12-29 07:52] LABS: BILIRUBIN,TOTAL 0.8 mg/dL (0.2-1); TOT PROT 7.2 g/dl (6.4-8.2)
[2023-12-29] MEDS ORDERED: ALBUTEROL SO4 2.5/IPRATROPIUM 0.5 INH SOL 3 ML VIAL.NEB. NEB ONE (08:02)
[2023-12-29] MEDS ORDERED: TAMSULOSIN HCL 0.4 MG CAP ONE (08:05)
[2023-12-29] MEDS: TAMSULOSIN HCL 0.4 MG CAP PO SCH (09:00)
[2023-12-29] MEDS ORDERED: ALLOPURINOL 100 MG TABLET (FP) PO SCH (10:00)
[2023-12-29] MEDS ORDERED: AZITHROMYCIN IVPB 500 MG/250 ML BAG IVPB SCH (10:00)
[2023-12-29] MEDS ORDERED: AZITHROMYCIN IVPB 500 MG/250 ML BAG IVPB ONE (10:01)
[2023-12-29] MEDS ORDERED: OSELTAMIVIR PHOSPHATE 30 MG CAPSULE ONE (10:01)
[2023-12-29] MEDS ORDERED: PREGABALIN 100 MG CAPSULE ONE (10:01)
[2023-12-29] MEDS ORDERED: methylPREDNISolone NA SUCC 40 MG/1 ML VIAL ONE (10:01)
[2023-12-29] MEDS: NEBIVOLOL 5 MG TABLET (FP) PO SCH (10:30)
[2023-12-29] MEDS: OSELTAMIVIR PHOSPHATE 30 MG CAPSULE PO SCH (10:30)
[2023-12-29] MEDS: TORSEMIDE 100 MG TABLET PO SCH (10:30)
[2023-12-29] MEDS: methylPREDNISolone NA SUCC 40 MG/1 ML VIAL IVPUSH SCH (10:30)
[2023-12-29] MEDS ORDERED: AZITHROMYCIN IVPB 500 MG in DEXTROSE 5%-WATER - 250 ML IVPB SCH (14:30)
[2023-12-29] MEDS ORDERED: CEFTRIAXONE 1 GM/50 ML BAG ONE (15:18)
[2023-12-29] MEDS: CEFTRIAXONE 1 GM in DEXTROSE 5%-WATER - 50 ML IVPB SCH (15:23)
[2023-12-29] MEDS: AZITHROMYCIN IVPB 500 MG/250 ML BAG IVPB SCH (16:18)
[2023-12-29] MEDS ORDERED: INSULIN (NOVOLOG) ASPART 100 UNITS/ML 10ML VIAL ONE (22:24)
[2023-12-29 23:32] VITALS: BMI 33.5
[2023-12-30] MEDS: AZITHROMYCIN IVPB 500 MG in DEXTROSE 5%-WATER - 250 ML IVPB SCH (08:05)
[2023-12-30 08:36] LABS: HEMATOCRIT 34.9 % (35.4-49); HEMOGLOBIN 11.7 GM/dL (11.7-16.9); MCHC 33.5 g/dl (32.0-35.9); MEAN CELL VOLUME 89.5 fl (80-96); PLATELET COUNT 99 10^3/uL (134-434); RBC 3.91 M/mm3 (4.00-5.60); RDW 15.8 % (11.9-15.9); WHITE BLOOD COUNT 4.9 K/mm3 (4.0-10.0)
[2023-12-30 08:51] LABS: POTASSIUM 3.9 mmol/L (3.5-5.1)
[2023-12-30 09:01] LABS: ALBUMIN 2.7 g/dl (3.4-5.0)
[2023-12-30 09:02] LABS: BLOOD UREA NITROGEN 76.8 mg/dL (7-18)
[2023-12-30 09:03] LABS: CALCIUM 9.1 mg/dL (8.5-10.1)
[2023-12-30 09:05] LABS: CREATININE 2.5 mg/dL (0.55-1.3); TOT PROT 6.4 g/dl (6.4-8.2)
[2023-12-30 09:06] LABS: BILIRUBIN,TOTAL 0.4 mg/dL (0.2-1)
[2023-12-30] MEDS ORDERED: CEFTRIAXONE 1 GM in DEXTROSE 5%-WATER - 50 ML IVPB SCH (10:00)
[2023-12-30] MEDS: methylPREDNISolone NA SUCC 40 MG/1 ML VIAL IVPUSH SCH (10:32)
[2023-12-30] MEDS: TORSEMIDE 100 MG TABLET PO SCH (10:32)
[2023-12-30] MEDS: TAMSULOSIN HCL 0.4 MG CAP PO SCH (10:32)
[2023-12-30] MEDS: HEPARIN NA (PORCINE) 5,000 UNITS/ML 1ML VIAL SQ SCH (10:32)
[2023-12-30] MEDS: PREGABALIN 100 MG CAPSULE PO SCH (10:32)
[2023-12-30] MEDS: NEBIVOLOL 5 MG TABLET (FP) PO SCH (10:32)
[2023-12-30] MEDS: BUDESONIDE/FORMETEROL FUMARATE 160/4.5 mcg INHALER IH SCH (10:33)
[2023-12-30] MEDS: ALBUTEROL SO4 HFA INHALER IH SCH (10:33)
[2023-12-30] MEDS: ALLOPURINOL 100 MG TABLET (FP) PO SCH (12:19)
[2023-12-30] MEDS: INSULIN ASPART SLIDING SCALE (NOVOLOG) 1 VIAL SQ SCH (12:19)
[2023-12-30] MEDS: OSELTAMIVIR PHOSPHATE 30 MG CAPSULE PO SCH (15:13)
[2023-12-30] MEDS: ASPIRIN COATED 81 MG TABLET.EC PO SCH (17:49)
[2023-12-30] MEDS: ATORVASTATIN CA 20 MG TABLET (FP) PO SCH (21:49)
[2023-12-31] MEDS ORDERED: INSULIN (NOVOLOG) ASPART 100 UNITS/ML 10ML VIAL ONE (05:21)
[2023-12-31] MEDS: predniSONE 20 MG TABLET (UD) PO SCH (10:08)
[2024-01-01] MEDS ORDERED: INSULIN (NOVOLOG) ASPART 100 UNITS/ML 10ML VIAL ONE ×2 (11:38→17:06)
[2024-01-02 12:02] LABS: HEMATOCRIT 40.6 % (35.4-49); HEMOGLOBIN 13.1 GM/dL (11.7-16.9); MCH 29.2 pg (25.7-33.7); MCHC 32.3 g/dl (32.0-35.9); MEAN CELL VOLUME 90.2 fl (80-96); MEAN PLT VOLUME 9.9 fl (7.5-11.1); PLATELET COUNT 95 10^3/uL (134-434); RDW 15.4 % (11.9-15.9); WHITE BLOOD COUNT 6.2 K/mm3 (4.0-10.0)
[2024-01-02 12:30] LABS: BLOOD UREA NITROGEN 84.2 mg/dL (7-18)
[2024-01-02 12:32] LABS: CREATININE 2.1 mg/dL (0.55-1.3)
[2024-01-02 12:59] LABS: ANISOCYTOSIS 0; MACROCYTOSIS 0
[2024-01-03 09:13] LABS: HEMATOCRIT 39.3 % (35.4-49); HEMOGLOBIN 12.8 GM/dL (11.7-16.9); MCH 29.4 pg (25.7-33.7); MCHC 32.7 g/dl (32.0-35.9); MEAN CELL VOLUME 90.1 fl (80-96); MEAN PLT VOLUME 10.1 fl (7.5-11.1); PLATELET COUNT 88 10^3/uL (134-434); RBC 4.36 M/mm3 (4.00-5.60); RDW 15.5 % (11.9-15.9)
[2024-01-03 09:15] LABS: POTASSIUM 3.6 mmol/L (3.5-5.1)
[2024-01-03 09:20] LABS: CALCIUM 9.4 mg/dL (8.5-10.1)
[2024-01-03 09:21] LABS: BLOOD UREA NITROGEN 92.1 mg/dL (7-18)
[2024-01-03 09:24] LABS: CREATININE 2.5 mg/dL (0.55-1.3)
[2024-01-03 10:20] VITALS: BP 122/61; PULSE 68; RESP 20; TEMP 98.2
[2024-01-03 10:43] LABS: ANISOCYTOSIS 1+; MACROCYTOSIS 0
== END 2024-01-03 11:55 | disposition home or self-care (01) ==
LOC: JER 12:51 → UNDOADMOB 15:55 → JERBED 15:55 → INTOOBSV 15:55 → J8W 12-29 18:31 → JERBED 12-29 18:31 → J8W 12-30 11:06 → JERBED 12-30 11:06
PROVIDERS: ADMIT Internal Medicine; ATTEND Nurse Practitioner Acute Care
PROC: 3E033NZ Introduction of Analgesics, Hypnotics, Sedatives into Peripheral Vein, Percutaneous Approach (ICD-10-PCS; principal; 2023-12-30)
PROC: 3E0F7GC Introduction of Other Therapeutic Substance into Respiratory Tract, Via Natural or Artificial Opening (ICD-10-PCS; 2023-12-30)
PROC: 3E03329 Introduction of Other Anti-infective into Peripheral Vein, Percutaneous Approach (ICD-10-PCS; 2023-12-30)
PROC: 3E023GC Introduction of Other Therapeutic Substance into Muscle, Percutaneous Approach (ICD-10-PCS; 2023-12-30)
PROC: 3E013VG Introduction of Insulin into Subcutaneous Tissue, Percutaneous Approach (ICD-10-PCS; 2023-12-30)
DX: J09.X2 Influenza due to identified novel influenza A virus with other respiratory manifestations (principal); J44.1 Chronic obstructive pulmonary disease with (acute) exacerbation; I13.2 Hypertensive heart and chronic kidney disease with heart failure and with stage 5 chronic kidney disease, or end stage renal disease; E11.22 Type 2 diabetes mellitus with diabetic chronic kidney disease; I77.0 Arteriovenous fistula, acquired; I1A.0 Resistant hypertension; E11.9 Type 2 diabetes mellitus without complications; Z95.1 Presence of aortocoronary bypass graft; N18.6 End stage renal disease; E66.9 Obesity, unspecified; Z29.89 Encounter for other specified prophylactic measures; Z87.891 Personal history of nicotine dependence; Z88.0 Allergy status to penicillin; Z88.8 Allergy status to other drugs, medicaments and biological substances
CPT/HCPCS: 0241U-QW; 36415; 71045-TC-FY; 80048; 80053; 81003; 82550; 82553; 82803; 82962; 83605; 83735; 83880; 84100; 84484; 85025; 85027; 85610; 85730; 87040; 87070; 87086; 87186; 87205; 93005; 93010; 94640; 96365; 96366; 96368; 96372; 96375; 96376; 99285-25; G0378; J0131; J1644